=== PATIENT | female | born 1955 | race Caucasian/White ===

== ENCOUNTER 2020-05-06 09:20 | Outpatient (CLI) | payer MEDICARE, MEDICAID, SELFPAY ==
--- NOTE | ~2020-05-06 | XR_ITS ---
EXAMINATION:XR_CERV2-3V_CR DATE: 05/06/2020 09:46 INDICATION: Cervicalgia TECHNIQUE: AP, lateral, and odontoid views of the cervical spine are provided. COMPARISON: 08/02/2007 FINDINGS: Alignment is normal. The odontoid is intact. No fracture is identified. The vertebral body heights are normal. There is mild loss of intervertebral disc space height at C5-6 and C6-7. There is mild facet and uncovertebral joint osteoarthritis at C5-6 and C6-7. Prevertebral soft tissues are no rmal. Small degenerative osteophytes project from the anterior endplates of multiple vertebral bodies . IMPRESSION: 1. Mild cervical spondylosis without acute findings or significant interval change. Reviewed, dictated and finalized at location A. IMPRESSION: 1. Mild cervical spondylosis without acute findings or significant interval raudel e.
--- NOTE | ~2020-05-06 | XR_ITS ---
EXAMINATION: XR knee LT 3V DATE: 05/06/2020 09:46 INDICATION: Left knee pain. TECHNIQUE: 3 views of left knee were obtained. COMPARISON: None. FINDINGS: There is lateral subluxation and lateral tilt of patella. No fracture. There is mild tricom partmental osteoarthritis. There is a small knee joint effusion. IMPRESSION: 1. Mild left knee osteoarthritis. 2. Small left knee joint effusion. Reviewed, dictated and finalized at location A.
== END 2020-05-06 09:21 | disposition home or self-care (01) ==
LOC: ANHIMG 09:28
PROVIDERS: PCP Internal Medicine; Visit Provider Internal Medicine
DX: M47.892 Other spondylosis, cervical region (principal); M17.12 Unilateral primary osteoarthritis, left knee; M25.462 Effusion, left knee
CPT/HCPCS: 72040; 73562

== ENCOUNTER 2020-05-24 15:40 | Outpatient (CLI) | payer MEDICARE, MEDICAID, SELFPAY ==
--- NOTE | ~2020-05-24 | MR_ITS ---
EXAMINATION: MR pelvis wo/w con DATE: 05/24/2020 16:46 INDICATION: Endometrial adenocarcinoma. TECHNIQUE: Magnetic resonance imaging (MRI) of the pelvis was performed without and with 20 mL MultiH ance intravenous contrast. Sequences included coronal and axial T2-weighted SS-FSE, coronal and axial FS 2D-FIESTA, axial T1-weighted dual-echo FSPGR, and axial T1-weighted LAVA. Postcontrast axial T1-w eighted LAVA images were obtained. COMPARISON: CT abdomen and pelvis 10/07/2017 FINDINGS: There is a 3.8 cm cyst in right adnexa. The uterus is absent. There is diverticulosis of the colon wi thout evidence of diverticulitis. There are no pathologically enlarged lymph nodes. There is no free intraperitoneal fluid. IMPRESSION: 1. 3.8 cm cyst in right adnexa, likely benign. Pelvis ultrasound is recommended in one year. Reviewed, dictated and finalized at location A.
[2020-05-24 16:13] LABS: Estimated Glomerular Filt Rate > 60
== END 2020-05-24 15:41 | disposition home or self-care (01) ==
LOC: ANHIMG 15:41
PROVIDERS: PCP Internal Medicine
DX: C53.0 Malignant neoplasm of endocervix (principal); N85.8 Other specified noninflammatory disorders of uterus
CPT/HCPCS: 72197; A9577

== ENCOUNTER 2020-11-26 08:28 | Outpatient (CLI) | payer MEDICARE, MEDICAID, SELFPAY ==
--- NOTE | ~2020-11-26 | MR_ITS ---
EXAMINATION: MR lumbar spine wo con EXAM DATE: 11/26/2020 09:55 INDICATION: Low back pain. Lumbar radiculopathy. TECHNIQUE: Multi-sequential, multiplanar MR images of the lumbar spine were obtained without contrast . Sagittal T1, T2, T2 fat saturation images. Axial T2 weighted images. There is no prior study for comparison. FINDINGS: The conus medullaris terminates at the L1/2 level and has normal signal intensity and morph ology. There is moderate disc disease L2-3, mild to moderate at the other lumbar levels. The vertebr al bodies are aligned in the AP dimension. There are scattered focal signal abnormalities consistent with hemangiomata, otherwise without focal suspicious marrow signal abnormalities. Paraspinal soft ti ssue is unremarkable. Level by level evaluation: T12-L1: Disc does not extend beyond the endplate margin. Facet arthropathy: None. Neural foraminal stenosis: No stenosis. Central canal stenosis: No stenosis. L1-L2: There is a minimal diffuse disc bulge. Facet arthropathy: Mild. Neural foraminal stenosis: No stenosis. Central canal stenosis: No stenosis. L2-L3: There is a moderate diffuse disc bulge. Facet arthropathy: Mild to moderate. Neural foraminal stenosis: Mild to moderate right, mild left. Central canal stenosis: Mild to moderate. L3-L4: There is a mild diffuse disc bulge. Facet arthropathy: Mild. Neural foraminal stenosis: No stenosis. Central canal stenosis: No stenosis. L4-L5: There is a mild to moderate diffuse disc bulge. Facet arthropathy: Moderate . Ligamentum flavum enlargement. Neural foraminal stenosis: Mild to moderate bilateral. Central canal stenosis: Mild to moderate. L5-S1: There is a mild to moderate diffuse disc bulge. Facet arthropathy: Mild to moderate left, mild right. Neural foraminal stenosis: Moderate left, mild right. Central canal stenosis: Mild. IMPRESSION: 1. Up to moderate lumbar spondylosis as detailed above. 2. Left L5-S1 neural foramina most narrowed on exam. Reviewed, dictated and finalized at location B. SERGEANT
== END 2020-11-26 08:29 | disposition home or self-care (01) ==
PROVIDERS: PCP Internal Medicine; Visit Provider Nurse Practitioner Adult Health
DX: M47.27 Other spondylosis with radiculopathy, lumbosacral region (principal); M48.07 Spinal stenosis, lumbosacral region
CPT/HCPCS: 72148

== ENCOUNTER → 2021-01-03 01:34 | Outpatient (CLI) | payer MEDICARE, MEDICAID, SELFPAY ==
[2021-01-03 19:39] LABS: SARS-CoV-2 RNA PCR Negative
== END ==
PROVIDERS: PCP Internal Medicine; Visit Provider Internal Medicine Gastroenterology
DX: Z01.812 Encounter for preprocedural laboratory examination (principal); Z20.822 Contact with and (suspected) exposure to COVID-19
CPT/HCPCS: C9803; U0003; U0005

== ENCOUNTER 2021-01-06 01:07 | Day surgery (SDC) | payer MEDICARE, MEDICAID, SELFPAY ==
[2020-12-23 15:46] VITALS: BMI 29.7
[2021-01-06 11:03] VITALS: BP 135/82; PULSE 76; RESP 18; TEMP 37; O2SAT 94; BMI 29.7
[2021-01-06] MEDS: LACTATED RINGERS 1,000 ML 150 ML IV CONT (11:11)
--- NOTE | 2021-01-06 11:33 | WPDGICN ---
GI Consult Note Consult date/time: 01/06/21 11:33 HPI: Reason for visit is colonoscopy. This very pleasant lady seen in consultation request of the primary physician. Impression: Here have a very pleasant lady that is here for screening colonoscopy. She has a history of hyperplastic polyps and a family history of colon cancer. Hypertension. Hyperlipidemia. Cervical cancer. Spinal stenosis. Degenerative joint disease. Overactive bladder. Hypothyroidism. Depression. Obesity. Recommendation: Colonoscopy. History: This very pleasant lady is negative GI review systems. She is here for screening and surveillance colonoscopy. She has a history multiple hyperplastic appearing colon polyps. She has a family history of colon cancer. She is here for colonoscopy. Physical examination: General: very pleasant patient in no acute distress. HEENT: Head was normocephalic sclerae is clear mouth without masses neck was supple. Heart: Rate rhythm regular without S3 or S4. Lungs: CTA. Abdomen: Soft with no guarding or rigidity. Bowel sounds were active. Neurologic: Cranial nerves 2 through 12 intact. No focal defects. No clonus. Musculoskeletal system: Revealed no joint tenderness or swelling no muscle atrophy. Extremities: Reveal no significant edema. Skin: Warm and dry with normal turgor. Mental status: intact. Patient is alert and oriented. Review of Systems Review of Systems: All systems reviewed & are unremarkable except as noted in HPI and below PMFSH Past Medical History Medical History Overactive bladder Surgical History Surgical History History of knee surgery Family History Family History Mother Family history of cardiac disorder Carcinoma of colon Family history of heart disease in male family member before age 55 Father Family history of Alzheimer's disease Family history of congestive heart failure Patient's father is Family history of heart disease in male family member before age 55 Sibling Hypertension Social History Social History (Updated 11/13/20 @ 12:06 by ESTHER Francisco) Years smoked: 15 Smoking status: Former smoker Tobacco type: cigarettes Second hand tobacco smoke exposure: No Smoking end date: 09/20/08 Alcohol intake: never Living arrangements: with family Gender identity (if verbalized by the patient): Female Spiritual care concerns: No Meds Home Medications and Allergies Home Medications Medication Instructions Recorded Confirmed Type biotin 10,000 mcg capsule 10,000 mcg PO DAILY 10/30/19 12/23/20 History calcium carbonate-vitamin D3 600 1 tablet PO DAILY 10/30/19 12/23/20 History mg (1,500 mg)-800 unit tablet multivitamin with iron 1 tablet PO DAILY 10/30/19 12/23/20 History vitamins A,C,P-ewhd-lmjoko 14,320 1 cap PO BID 10/30/19 12/23/20 History unit-226 mg-200 unit capsule folic acid 1 mg tablet 1 mg PO DAILY #90 tablet 01/25/20 12/23/20 Rx paroxetine HCl 40 mg tablet 40 mg PO DAILY #90 tablet 08/19/20 12/23/20 Rx carvedilol 12.5 mg tablet See Rx Instructions .ROUTE 10/17/20 11/13/20 Rx .COMPLEX #180 tablet losartan 100 mg tablet See Rx Instructions .ROUTE 10/17/20 11/13/20 Rx .COMPLEX #90 tablet mirabegron 25 mg tablet,extended 25 mg PO DAILY #90 tablet 10/22/20 12/23/20 Rx release 24 hr levothyroxine 112 mcg tablet See Rx Instructions .ROUTE 11/18/20 12/23/20 Rx .COMPLEX #90 tablet trazodone 50 mg tablet See Rx Instructions .ROUTE 11/19/20 12/23/20 Rx .COMPLEX #90 tablet atorvastatin 80 mg tablet See Rx Instructions .ROUTE 12/03/20 12/23/20 Rx .COMPLEX #90 tablet amlodipine 5 mg tablet See Rx Instructions .ROUTE 12/30/20 Rx .COMPLEX #90 tablet Allergies Allergy/AdvReac Type Severity [place]
--- NOTE | 2021-01-06 11:43 | WPDANESEPPF ---
Anes - Initial Pre Proc Eval Procedure: Operation Date: 01/06/21 11:30 Proposed Procedures p Screening Colonoscopy - Rodríguez Carrasquillo DO Date/Time: 01/06/21 11:43 Surgeon: Rodríguez Carrasquillo DO Pre Op Diagnosis: Neoplasm Screening Patient Data Age: 65 Gender: F Height: 5 ft 7 in Weight: 86.2 kg Last Vital Signs Temp 98.6 F 01/06/21 11:03 Pulse 76 01/06/21 11:03 Resp 18 01/06/21 11:03 BP 135/82 01/06/21 11:03 Pulse Ox 94 01/06/21 11:03 Allergies Allergy/AdvReac Type Severity Reaction Status Date / Time mushroom Allergy Unknown Rash Verified 01/06/21 11:02 strawberry Allergy Unknown Hives Verified 01/06/21 11:02 Home Medications Medication Instructions Recorded Confirmed Type biotin 10,000 mcg capsule 10,000 mcg PO DAILY 10/30/19 12/23/20 History calcium carbonate-vitamin D3 600 1 tablet PO DAILY 10/30/19 12/23/20 History mg (1,500 mg)-800 unit tablet multivitamin with iron 1 tablet PO DAILY 10/30/19 12/23/20 History vitamins A,C,Q-owez-msopol 14,320 1 cap PO BID 10/30/19 12/23/20 History unit-226 mg-200 unit capsule folic acid 1 mg tablet 1 mg PO DAILY #90 tablet 01/25/20 12/23/20 Rx paroxetine HCl 40 mg tablet 40 mg PO DAILY #90 tablet 08/19/20 12/23/20 Rx carvedilol 12.5 mg tablet See Rx Instructions .ROUTE 10/17/20 11/13/20 Rx .COMPLEX #180 tablet losartan 100 mg tablet See Rx Instructions .ROUTE 10/17/20 11/13/20 Rx .COMPLEX #90 tablet mirabegron 25 mg tablet,extended 25 mg PO DAILY #90 tablet 10/22/20 12/23/20 Rx release 24 hr levothyroxine 112 mcg tablet See Rx Instructions .ROUTE 11/18/20 12/23/20 Rx .COMPLEX #90 tablet trazodone 50 mg tablet See Rx Instructions .ROUTE 11/19/20 12/23/20 Rx .COMPLEX #90 tablet atorvastatin 80 mg tablet See Rx Instructions .ROUTE 12/03/20 12/23/20 Rx .COMPLEX #90 tablet amlodipine 5 mg tablet See Rx Instructions .ROUTE 12/30/20 Rx .COMPLEX #90 tablet Patient hx anesthesia problems: none Family hx anesthesia problems: none PMFSH Past Medical History Medical History (Updated 01/06/21 @ 11:34 by Valdemar Hutchins MD) Anxiety Essential (primary) hypertension Gastroesophageal reflux disease without esophagitis Hypothyroidism, unspecified Mixed hyperlipidemia Overactive bladder Surgical History Surgical History History of knee surgery Family History Family History Mother Family history of cardiac disorder Carcinoma of colon Family history of heart disease in male family member before age 55 Father Family history of Alzheimer's disease Family history of congestive heart failure Patient's father is Family history of heart disease in male family member before age 55 Sibling Hypertension Social History Social History (Updated 11/13/20 @ 12:06 by ESTHER Francisco) Years smoked: 15 Smoking status: Former smoker Tobacco type: cigarettes Second hand tobacco smoke exposure: No Smoking end date: 09/20/08 Alcohol intake: never Living arrangements: with family Gender identity (if verbalized by the patient): Female Spiritual care concerns: No Anes - Eval Final PreProcedure Day of Procedure 01/06/21 11:43 Patient weight: obese Heart: regular rate and rhythm Lungs: clear to auscultation Airway: Mallampati scale class II Neurological: alert and oriented Last oral intake: >/= 8 hours ASA classification: III Emergent: no Anesthetic plan: proceed Anesthesia type and monitoring: general GIVS and standard monitoring Informed Consent: The patient's anesthetic plan and its attendant risks and benefits were discussed with the patient/family/POA. Questions were solicited and answers provided to the satisfaction of the patient/family/POA.
[2021-01-06 12:48] VITALS: BP 80/46; PULSE 59; RESP 14; O2SAT 100
[2021-01-06 12:58] VITALS: BP 92/58; PULSE 59; RESP 15; O2SAT 100
[2021-01-06 13:08] VITALS: BP 114/72; PULSE 59; RESP 17; O2SAT 100
== END 2021-01-06 13:21 | disposition home or self-care (01) ==
PROVIDERS: PCP Internal Medicine; Visit Provider Internal Medicine Gastroenterology
PROC: 0DJD8ZZ Inspection of Lower Intestinal Tract, Via Natural or Artificial Opening Endoscopic (ICD-10-PCS; CPT 45378; principal; 2021-01-06 11:30)
DX: Z12.11 Encounter for screening for malignant neoplasm of colon (principal); K57.30 Diverticulosis of large intestine without perforation or abscess without bleeding; K62.5 Hemorrhage of anus and rectum; I10 Essential (primary) hypertension; E03.9 Hypothyroidism, unspecified; M19.90 Unspecified osteoarthritis, unspecified site; F41.8 Other specified anxiety disorders; K21.9 Gastro-esophageal reflux disease without esophagitis; E78.2 Mixed hyperlipidemia; N32.81 Overactive bladder; E66.9 Obesity, unspecified; Z68.29 Body mass index [BMI] 29.0-29.9, adult; Z87.891 Personal history of nicotine dependence; Z85.41 Personal history of malignant neoplasm of cervix uteri
CPT/HCPCS: 45380; 88305; J2704; J7120

== ENCOUNTER 2021-05-25 12:15 | Outpatient (CLI) | payer MEDICARE, MEDICAID, SELFPAY ==
--- NOTE | ~2021-05-25 | XR_ITS ---
EXAMINATION: XR femur RT min 2V DATE: 05/25/2021 12:34 INDICATION: Right thigh pain. Fall. TECHNIQUE: 2 views of right femur on 4 radiographs were obtained. COMPARISON: Pelvis and hip radiographs 04/05/2017, right knee radiographs 11/01/2007 FINDINGS: There is an old healed fracture of distal femoral metaphysis with internal fixation with la teral plate and screws. There is a total right knee arthroplasty. There is 3 mm lucency adjacent to t he arthroplasty in the anterior distal femur. There is mild right hip osteoarthritis. No knee joint e ffusion. IMPRESSION: 1. Mild right hip osteoarthritis. 2. Total right knee arthroplasty with lucency adjacent to the femoral component suspicious for loosen ing. Reviewed, dictated and finalized at location A. IMPRESSION: 1. Mild right hip osteoarthritis. 2. Total right knee arthroplasty with lucency adjacent to the femoral component suspicious for loosening.
== END 2021-05-25 12:16 | disposition home or self-care (01) ==
LOC: ANHIMG 12:20
PROVIDERS: PCP Internal Medicine; Visit Provider Internal Medicine
DX: M89.8X5 Other specified disorders of bone, thigh (principal); M79.652 Pain in left thigh; M16.11 Unilateral primary osteoarthritis, right hip; Z96.651 Presence of right artificial knee joint
CPT/HCPCS: 73552

== ENCOUNTER → 2022-01-20 14:09 | Outpatient (REF) | payer MEDICARE, MEDICAID, SELFPAY | LOC: ANHLAB 14:09 | PROVIDERS: PCP Internal Medicine; Visit Provider Nurse Practitioner | DX: C44.311 Basal cell carcinoma of skin of nose (principal) | CPT/HCPCS: 88305 ==

== ENCOUNTER → 2022-02-03 13:37 | Outpatient (REF) | payer MEDICARE, MEDICAID, SELFPAY | LOC: ANHLAB 13:37 | PROVIDERS: PCP Internal Medicine; Visit Provider Nurse Practitioner | DX: D23.39 Other benign neoplasm of skin of other parts of face (principal) | CPT/HCPCS: 88304 ==

== ENCOUNTER → 2022-03-16 10:27 | Outpatient (REF) | payer MEDICARE, MEDICAID, SELFPAY | LOC: ANHLAB 10:27 | PROVIDERS: PCP Internal Medicine; Visit Provider Nurse Practitioner | DX: C44.319 Basal cell carcinoma of skin of other parts of face (principal) | CPT/HCPCS: 88305; 88331 ==

== ENCOUNTER 2023-08-31 08:35 | Day surgery (SDC) | payer MEDICARE, MEDICAID, SELFPAY ==
--- NOTE | ~2023-08-31 | XR_ITS ---
EXAMINATION: XR fluoroscopy no charge INDICATION: Bilateral L3, L4, and L5 medial block TECHNIQUE: 11 intraoperative fluoroscopic images are submitted for review. Total fluoroscopic time wa s 29.4 seconds. COMPARISON: None available FINDINGS: Fluoroscopic images demonstrate bilateral injection of the L3, L4, and L5 neuroforamina. Pl ease refer to procedure note for full details. IMPRESSION: 1. Please refer to procedure note for full details. Reviewed, dictated and finalized at location L. OR ANIMATOR
--- NOTE | 2023-08-31 05:48 | WPDHPUPDATE1 ---
History and Physical Update Update Date/Time: 08/31/23 05:48 History and Physical has been reviewed, including an updated exam of the patient. There are NO changes in the patient's condition. Risks, benefits, and alternatives have been discussed and questions answered. Patient agrees to proceed with procedure.
[2023-08-31 09:40] VITALS: BP 118/79; PULSE 88; RESP 20; TEMP 36.5; O2SAT 96
[2023-08-31 11:05] VITALS: BP 113/86; PULSE 67; RESP 10; O2SAT 95
[2023-08-31 11:10] VITALS: BP 176/79; PULSE 68; RESP 15; O2SAT 95
[2023-08-31] MEDS: LIDOCAINE HCL 1% PF INJ 5 ML VIAL XX (11:10)
[2023-08-31 11:15] VITALS: BP 173/82; PULSE 70; RESP 15; O2SAT 96
[2023-08-31] MEDS: BUPivacaine HCL 0.5% 10 ML AMP INFILTRATE (11:20)
--- NOTE | 2023-08-31 11:21 | W.PM.PROC2 ---
Procedure Note - Detailed Date of Procedure 08/31/23 Pre-op Diagnosis Lumbosacral Spondylosis , chronic low back pain Post-op Diagnosis Same Procedure Performed bilateral L3, L4, L5 medial branch/dorsal ramus nerve block addressing the bilateral L4-5, L5-S1 facet joints and fluoroscopic guidance with contrast control. Surgeon Leno Macdonald MD Anesthesia Local Description of Procedure INFORMED CONSENT: Risks, benefits and alternatives to the procedure were discussed in detail with the patient who expressed explicit understanding and consent to proceed. Patient was informed verbally and in written form regarding the risks associated with the procedure including the low risk of serious infection, bleeding/bruising, allergic reaction, nerve or organ injury, paralysis, procedural site pain or discomfort, worsening pain and/or mobility, failure to treat and/or disfigurement. The patient expressed explicit understanding and consent to proceed. All materials required for the procedure were available prior to procedure start. Site and side were marked prior to procedure and confirmed in the presence of the patient. PROCEDURE IN DETAIL: The patient was brought to the procedural suite and placed in the prone position. Patient was made comfortable with use of pillows under the head/chest, hips and ankles. Skin overlying the injection site on the affected side(s) was prepared broadly with ChloraPrep applicator and draped in a sterile manner. Aseptic technique was used throughout. The endplates of the vertebral bodies at the site(s) of interest were aligned in the AP view. Ipsilateral oblique angulation was utilized to optimize visualization of the intersection between the superior articulating process and transverse process at each target site. Local anesthesia was established by infiltration with approximately 5 mL of 1% lidocaine via a 1-1/2 inch 27-gauge needle. A 25-gauge 5.0 inch Quincke spinal needle was advanced until the needle tip contacted periosteum at the target site, right L3. Lateral view was utilized to confirm the appropriate placement of the needle tip just anterior to the facet line and superior to the pedicle. In the Lateral view, 0.25 mL of Omnipaque 300 contrast medium was injected after negative aspiration for CSF, blood or other bodily fluid, showing appropriate extra-articular spread of contrast without evidence of intravascular, foraminal or intrathecal placement. A 0.5 mL solution of 0.5% PF bupivacaine was injected after negative repeat aspiration. Appropriate spread of the injectate was confirmed with washout of previously injected contrast. No parasthesias were elicited. Needle was removed completely intact without difficulty. The same exact procedure was repeated for all remaining levels on the ipsilateral side, right L4, L5 medial branches/dorsal ramus, modified as necessary to accommodate for the new target location with identical findings and results and no evidence of complication. The same exact procedure was repeated for all remaining levels on the contralateral side, left L3, L4, L5 medial branches/dorsal ramus, modified as necessary to accommodate for the new target location with identical findings and results and no evidence of complication. Images were saved and documented in the patient chart. Patient's skin was cleaned and sterile bandage applied. The patient tolerated the procedure well. The patient was transported to the recovery area in stable condition where they were observed for an appropriate amount of time prior to discharge, without evidence of complication. Patient was instructed on the appropriate completion of a pain diary over the next 12-24 hours. The patient was instructed to avoid excessive activity for the next 48 hours, including climbing and frequent use of stairs. Showers only for 48 hours. They were instructed not to drive or operate heavy machinery for 24 hours. They are to monitor for severe headaches, fev
[2023-08-31 11:30] VITALS: BP 112/94; PULSE 72; RESP 15; O2SAT 97
== END 2023-08-31 11:40 | disposition home or self-care (01) ==
LOC: ASC 09:23
PROVIDERS: PCP Nurse Practitioner Family; Visit Provider Anesthesiology Pain Medicine
PROC: (CPT 64493; principal; 2023-08-31 10:30)
DX: M47.817 Spondylosis without myelopathy or radiculopathy, lumbosacral region (principal); M54.59 Other low back pain
CPT/HCPCS: 64493 ×2; 99199

== ENCOUNTER 2023-10-26 05:53 | Day surgery (SDC) | payer MEDICARE, MEDICAID, SELFPAY ==
[2023-10-06 11:06] VITALS: BMI 35.6
--- NOTE | ~2023-10-26 | XR_ITS ---
EXAMINATION: XR fluoroscopy no charge DATE: 10/26/2023 10:55 INDICATION: Bilateral L3-L5 nerve blocks. TECHNIQUE: 7 fluoroscopic images of the lumbar spine were obtained during procedure performed by Dr. Macdonald. Radiologist was not present for the imaging or procedure. The amount of fluoroscopy time used d uring this procedure was 0.3 minutes. COMPARISON: None. FINDINGS: Images demonstrate needles advanced to the region of the junction of the superior facet and transvers e processes of L4-S1 on both the left and right. IMPRESSION: 1. Fluoroscopy utilized during pain management procedure the lower lumbar spine. See procedure note f or further detail. Reviewed, dictated and finalized at location A. MACHINE REPAIRER IMPRESSION: 1. Fluoroscopy utilized during pain management procedure the lower lumbar spine . See procedure note for further detail.
--- NOTE | 2023-10-26 07:20 | PM.HPGS ---
History of Present Illness History of Present Illness Consent: Risks, benefits, and alternatives have been discussed and questions answered. Patient agrees to proceed with procedure. Chief complaint: Lumbar Spondylosis w/o Myelopathy or Radiculopathy Narrative: Rosetta Cardenas is a 68 year old femalewith chronic, recalcitrant and disabling bilateral lumbosacral back pain secondary to degenerative spondylosis with failure to respond to aggressive conservative measures including PT, oral and topical analgesics, opioid and nonopioid analgesics, rest, time and activity/behavioral modification over the past 1-2 years who presents for diagnostic/prognostic medial branch blocks (#2) under fluoroscopic guidance and with contrast control. Patient had excellent and concordant response to bupivacaine blockade in the recent past. Review of Systems Review of Systems: Patient denies any new infectious, allergic, cardiopulmonary, neurologic or constitutional symptoms or changes in activity tolerance or exercise capacity including new or progressive SOB/PARKINSON, peripheral edema, productive cough, dysuria, nausea/vomiting, diarrhea, weight change, fevers/chills/night sweats, new or progressive neurologic deficit, cognitive or mood changes since last seen, except as documented in the HPI. All systems reviewed & are unremarkable except as noted in HPI and below PMFSH Past Medical History Medical History Anxiety Bladder disorder Stimulator placed 05/2023 Essential (primary) hypertension Gastroesophageal reflux disease without esophagitis Hypothyroidism, unspecified Mixed hyperlipidemia Overactive bladder Surgical History Surgical History History of knee surgery Family History Family History Mother Family history of cardiac disorder Carcinoma of colon Family history of heart disease in male family member before age 55 Father Family history of Alzheimer's disease Family history of congestive heart failure Patient's father is Family history of heart disease in male family member before age 55 Sibling Hypertension Social History Social History Smoking packs per day: 1 Smoking cigarettes per day: 20.0 Years smoked: 15 Smoking pack-years: 15.00 Smoking status: Never smoker Tobacco type: cigarettes Second hand tobacco smoke exposure: Yes Smoking end date: 09/20/08 Alcohol intake: never Substance use: never Substance use type: does not use Lack of Transportation: No Lack of Food: Never True Current Housing: I Have Housing Concerned About Future Housing: No Difficulty Paying Gas/Electric Bills: No Difficulty Paying for Meds: No Currently Unemployed: No Education: High School Diploma/GED Difficulty w/ Childcare or Family Care: No Living arrangements: alone Gender identity (if verbalized by the patient): Female Spiritual care concerns: No Meds Home Medications and Allergies Home Medications Medication Instructions Recorded Confirmed Type calcium carbonate 600 mg-vitamin 1 tablet PO DAILY 10/30/19 08/31/23 History D3 20 mcg (800 unit) tablet (Caltrate with Vitamin D3) multivitamin with iron (Daily 1 tablet PO DAILY 10/30/19 08/31/23 History Vitamin with Iron tablet) vitamins A,C,K-xcnj-pszssn 4,296 1 cap PO BID 10/30/19 08/31/23 History mcg-226 mg-90 mg capsule (PreserVision AREDS) folic acid 1 mg tablet 1 mg PO DAILY #90 tabs 01/25/20 08/31/23 Rx paroxetine HCl 10 mg tablet 10 mg PO DAILY #90 tabs 12/18/22 08/31/23 Rx paroxetine HCl 40 mg tablet 40 mg PO DAILY #90 tabs 12/18/22 08/31/23 Rx atorvastatin 80 mg tablet See Rx Instructions .Route 06/09/23 08/31/23 Rx .COMPLEX #90 tabs carvedilol 12.5 mg tablet See Rx Instructions .Rout
--- NOTE | 2023-10-26 07:24 | WPDHPUPDATE1 ---
History and Physical Update Update Date/Time: 10/26/23 07:24 History and Physical has been reviewed, including an updated exam of the patient. There are NO changes in the patient's condition. Risks, benefits, and alternatives have been discussed and questions answered. Patient agrees to proceed with procedure.
--- NOTE | 2023-10-26 07:24 | W.PM.PROC2 ---
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 Surgeon Leno Macdonald MD Anesthesia Local Description of Procedure INFORMED CONSENT: Risks, benefits and alternatives to the procedure were discussed in detail with the patient who expressed explicit understanding and consent to proceed. Patient was informed verbally and in written form regarding the risks associated with the procedure including the low risk of serious infection, bleeding/bruising, allergic reaction, nerve or organ injury, paralysis, procedural site pain or discomfort, worsening pain and/or mobility, failure to treat and/or disfigurement. The patient expressed explicit understanding and consent to proceed. All materials required for the procedure were available prior to procedure start. Site and side were marked prior to procedure and confirmed in the presence of the patient. PROCEDURE IN DETAIL: The patient was brought to the procedural suite and placed in the prone position. Patient was made comfortable with use of pillows under the head/chest, hips and ankles. Skin overlying the injection site on the affected side(s) was prepared broadly with ChloraPrep applicator and draped in a sterile manner. Aseptic technique was used throughout. The endplates of the vertebral bodies at the site(s) of interest were aligned in the AP view. Ipsilateral oblique angulation was utilized to optimize visualization of the intersection between the superior articulating process and transverse process at each target site. Local anesthesia was established by infiltration with approximately 5 mL of 1% lidocaine via a 1-1/2 inch 27-gauge needle. A 25-gauge 5.0 inch Quincke spinal needle was advanced until the needle tip contacted periosteum at the target site, right L3. Lateral view was utilized to confirm the appropriate placement of the needle tip just anterior to the facet line and superior to the pedicle. In the Lateral view, 0.25 mL of Omnipaque 300 contrast medium was injected after negative aspiration for CSF, blood or other bodily fluid, showing appropriate extra-articular spread of contrast without evidence of intravascular, foraminal or intrathecal placement. A 0.5 mL solution of 2.0% preservative-free lidocaine was injected after negative repeat aspiration. Appropriate spread of the injectate was confirmed with washout of previously injected contrast. No parasthesias were elicited. Needle was removed completely intact without difficulty. The same exact procedure was repeated for all remaining levels on the ipsilateral side, right L4, L5 medial branches/dorsal ramus, modified as necessary to accommodate for the new target location with identical findings and results and no evidence of complication. The same exact procedure was repeated for all remaining levels on the contralateral side, left L3, L4, L5 medial branches/dorsal ramus, modified as necessary to accommodate for the new target location with identical findings and results and no evidence of complication. Images were saved and documented in the patient chart. Patient's skin was cleaned and sterile bandage applied. The patient tolerated the procedure well. The patient was transported to the recovery area in stable condition where they were observed for an appropriate amount of time prior to discharge, without evidence of complication. Patient was instructed on the appropriate completion of a pain diary over the next 12-24 hours. The patient was instructed to avoid excessive activity for the next 48 hours, including climbing and frequent use of stairs. Showers only for 48 hours. They were instructed not to drive or operate heavy machinery for 24 hours. They are to monito
[2023-10-26 07:40] VITALS: BP 110/83; PULSE 70; RESP 16; TEMP 36.7; O2SAT 98
[2023-10-26 08:18] VITALS: BP 173/83; PULSE 66; RESP 15; O2SAT 95
[2023-10-26 08:22] VITALS: BP 162/74; PULSE 61; RESP 13; O2SAT 93
[2023-10-26] MEDS: LIDOCAINE HCL 2% PF INJ 5 ML VIAL 3 ML INFILTRATE (08:25)
[2023-10-26] MEDS: LIDOCAINE HCL 1% PF INJ 5 ML VIAL AFFCTD EYE (08:25)
[2023-10-26 08:27] VITALS: BP 145/68; PULSE 64; RESP 13; O2SAT 95
[2023-10-26 08:32] VITALS: BP 138/71; PULSE 63; O2SAT 95
[2023-10-26 08:36] VITALS: BP 112/75; PULSE 71; RESP 16; O2SAT 97
== END 2023-10-26 09:00 | disposition home or self-care (01) ==
PROVIDERS: PCP Nurse Practitioner Family; Visit Provider Anesthesiology Pain Medicine
PROC: (CPT 64493; principal; 2023-10-26 08:15)
DX: M47.816 Spondylosis without myelopathy or radiculopathy, lumbar region (principal)
CPT/HCPCS: 64493 ×2; 99199

== ENCOUNTER 2023-12-07 06:14 | Day surgery (SDC) | payer MEDICARE, MEDICAID, SELFPAY ==
[2023-11-25 12:37] VITALS: BMI 36.6
--- NOTE | 2023-11-26 09:06 | SUR.PREOP ---
SPOKE WITH DR THOMAS, EKG WAIVED FOR COLONOSCOPY. PT NOTIFIED.
--- NOTE | ~2023-12-07 | XR_ITS ---
EXAMINATION: XR fluoroscopy no charge DATE: 12/07/2023 8:25 CDT INDICATION: OLIVIA L3,L4,L5 MEDIAL BRANCH THERMAL RADIOFREQUENCY ABLATION . TECHNIQUE: 6 fluoroscopic images and 3 cine clips of 4, 5, and 4 images of the lumbar spine were obta ined during bilateral L3-L5 medial branch thermal radiofrequency ablation, performed by Leno Herman om, MD. I was not present during the procedure. Fluoroscopy exposure time was 25.9 seconds. Air Kerma 20.8 mGy. COMPARISON: None FINDINGS/IMPRESSION: Fluoroscopic documentation of bilateral L3-L5 medial branch thermal radiofrequency ablation. Please r efer to the operative note for complete procedural details. Reviewed, dictated and finalized at location K.
[2023-12-07 06:46] VITALS: BP 120/80; PULSE 88; RESP 16; TEMP 37.3; O2SAT 98; BMI 37.3
--- NOTE | 2023-12-07 06:57 | WPDANESEPPF ---
Anes - Initial Pre Proc Eval Procedure: Operation Date: 12/07/23 08:00 Proposed Procedures p Bilateral L3, L4, L5 Medial Branch/Dorsal Ramus Thermal Radiofrequency Ablation under Fluoroscopic Guidance - Leno Macdonald MD Date/Time: 12/07/23 06:57 Surgeon: Leno Macdonald MD Pre Op Diagnosis: Lumbosacral Spondylosis w/o Myelopathy or Patient Data Age: 68 Gender: F Height: 1.68 m Weight: 104.75 kg Last Vital Signs Temp 37.3 C 12/07/23 06:46 Pulse 88 12/07/23 06:46 Resp 16 12/07/23 06:46 BP 120/80 12/07/23 06:46 Pulse Ox 98 12/07/23 06:46 O2 Del Method Room Air 12/07/23 06:46 Allergies Allergy/AdvReac Type Severity Reaction Status Date / Time mushroom Allergy Unknown Rash Verified 12/07/23 06:38 strawberry Allergy Unknown Hives Verified 12/07/23 06:38 Home Medications Medication Instructions Recorded Confirmed Type calcium carbonate 600 mg-vitamin 1 tablet PO DAILY 10/30/19 12/07/23 History D3 20 mcg (800 unit) tablet (Caltrate with Vitamin D3) multivitamin with iron (Daily 1 tablet PO DAILY 10/30/19 11/25/23 History Vitamin with Iron tablet) vitamins A,C,H-[id number]-gbkrcg 4,296 1 cap PO BID 10/30/19 11/25/23 History mcg-226 mg-90 mg capsule (PreserVision AREDS) folic acid 1 mg tablet 1 mg PO DAILY #90 tabs 01/25/20 11/25/23 Rx paroxetine HCl 10 mg tablet 10 mg PO DAILY #90 tabs 12/18/22 11/25/23 Rx paroxetine HCl 40 mg tablet 40 mg PO DAILY #90 tabs 12/18/22 11/25/23 Rx atorvastatin 80 mg tablet See Rx Instructions .Route 06/09/23 12/07/23 Rx .COMPLEX #90 tabs carvedilol 12.5 mg tablet See Rx Instructions .Route 06/09/23 12/07/23 Rx .COMPLEX #180 tabs levothyroxine 112 mcg tablet See Rx Instructions .Route 07/15/23 12/07/23 Rx .COMPLEX #90 tabs trazodone 50 mg tablet See Rx Instructions .Route 07/28/23 11/25/23 Rx .COMPLEX #90 tabs losartan 100 mg tablet See Rx Instructions .Route 09/06/23 11/25/23 Rx .COMPLEX #90 tabs amlodipine 5 mg tablet See Rx Instructions .Route 10/21/23 12/07/23 Rx .COMPLEX #90 tabs Patient hx anesthesia problems: none Family hx anesthesia problems: none Results Review: All pre-operative results and documents have been reviewed as part of the pre-operative evaluation. [facility] Past Medical History Medical History Anxiety Bladder disorder Stimulator placed 05/2023 Essential (primary) hypertension Gastroesophageal reflux disease without esophagitis Hypothyroidism, unspecified Mixed hyperlipidemia Overactive bladder Surgical History Surgical History History of knee surgery Family History Family History Mother Family history of cardiac disorder Carcinoma of colon Family history of heart disease in male family member before age 55 Father Family history of Alzheimer's disease Family history of congestive heart failure Patient's father is Family history of heart disease in male family member before age 55 Sibling Hypertension Social History Social History Smoking packs per day: 1 Smoking cigarettes per day: 20.0 Years smoked: 15 Smoking pack-years: 15.00 Smoking status: Former smoker Tobacco type: cigarettes Second hand tobacco smoke exposure: No Smoking end date: 09/20/08 Alcohol intake: never Substance use: never Substance use type: does not use Lack of Transportation: No Lack of Food: Never True Current Housing: I Have Housing Concerned About Future Housing: No Difficulty Paying Gas/Electric Bills: No Difficulty Paying for Meds: No Currently Unemployed: No Education: High School Diploma/GED Difficulty w/ Childcare or Family Care: No Living arrangements: alone Gender identity (if verbalized by the patient): Female Tory
[2023-12-07] MEDS: LACTATED RINGERS 1,000 ML 30 ML IV CONT (07:00)
--- NOTE | 2023-12-07 08:16 | WPDHPUPDATE1 ---
History and Physical Update Update Date/Time: 12/07/23 08:16 History and Physical has been reviewed, including an updated exam of the patient. There are NO changes in the patient's condition. Risks, benefits, and alternatives have been discussed and questions answered. Patient agrees to proceed with procedure.
[2023-12-07] MEDS: BUPivacaine HCL 0.5% 10 ML AMP INFILTRATE (08:55)
[2023-12-07] MEDS: LIDOCAINE HCL 2% PF INJ 5 ML VIAL 10 ML INFILTRATE (08:57)
[2023-12-07] MEDS: LIDOCAINE HCL 1% PF INJ 5 ML VIAL 3 ML XX (08:59)
--- NOTE | 2023-12-07 09:00 | W.PM.PROC2 ---
Procedure Note - Detailed Date of Procedure 12/07/23 Pre-op Diagnosis Lumbosacral Spondylosis w/o Myelopathy, Dorssalgia Post-op Diagnosis Same Procedure Performed Bilateral L3, L4, L5 medial branch/ dorsal ramus thermal radiofrequency ablation under fluoroscopic guidance. Surgeon Leno Macdonald MD Anesthesia MAC and Local Description of Procedure INFORMED CONSENT: Risks, benefits and alternatives to the procedure were discussed in detail with the patient who expressed explicit understanding and consent to proceed. Patient was informed verbally and in written form regarding the risks associated with the procedure including the low risk of serious infection, bleeding/bruising, allergic reaction, nerve or organ injury, paralysis, procedural site pain or discomfort, worsening pain and/or mobility, failure to treat and/or disfigurement. The patient expressed explicit understanding and consent to proceed. All materials required for the procedure were available prior to procedure start. Site and side were marked prior to procedure and confirmed in the presence of the patient. PROCEDURE IN DETAIL: The patient was brought to the procedural suite and placed in the prone position. Patient was made comfortable with use of pillows under the head/chest, hips and ankles. Skin overlying the injection site on the affected side(s) was prepared broadly with ChloraPrep applicator and draped in a sterile manner. Aseptic technique was used throughout. The endplates of the vertebral bodies at the site(s) of interest were aligned in the AP view. Ipsilateral oblique angulation was utilized to optimize visualization of the intersection between the superior articulating process and transverse process at each target site. Local anesthesia was established by infiltration with approximately 5 mL of 1% lidocaine via a 1-1/2 inch 27-gauge needle. An 16-gauge 150mm Fanattacian RF needle with curved 10mm active tip was advanced in the AP view until the needle tip contacted the periosteum at the target site, right L3 medial branch. Lateral view was utilized to adjust and confirm the appropriate placement of the needle tip just anterior to the facet line, superior to the pedicle and posterior to the foramen. The appropriately-sized RF cannula was inserted into the RF needle and motor stimulation performed with no subjective or objective evidence of recruited muscle activity with stimulation up to 3.0 volts at a frequency of 2Hz. 1.0 mL of 2.0% PF lidocaine was injected after negative aspiration. Grounding electrode in place and functioning. After a 90s pause, lesioning was performed to 90 degrees centigrade for 90s ensuring lack of symptoms in the extremity throughout. Needle was rotated 180 degrees and lesioning repeated in a similar manner. Patient tolerated this well. No parasthesias were elicited. Needle was removed completely intact without difficulty. The same procedure was repeated for all intended levels/ structures on the ipsilateral side, right L4, L5 medial branch/dorsal ramus with identical methodology, modified to compensate for new location, with similar results and no evidence of complication. The same exact procedure was repeated for all remaining levels on the contralateral side, left L3, L4, L5 medial branches/dorsal ramus, modified as necessary to accommodate for the new target location with identical findings/results and no evidence of complication. Images were saved and documented in the patient chart. Patient's skin was cleansed and sterile bandage applied. The patient tolerated the procedure well. The patient was transported to the recovery area in stable condition where they were observed for an appropriate amount of time prior to discharge, without evidence of complication. The patient was instructed to avoid excessive activity for the next 48 hours, including climbing and frequent use of stairs. Showers only for 48 hours. They were instructed not to drive or operat
[2023-12-07 09:04] VITALS: BP 102/55; PULSE 72; RESP 18; O2SAT 96
[2023-12-07 09:14] VITALS: BP 117/98; PULSE 75; RESP 18; O2SAT 95
--- NOTE | 2023-12-07 09:16 | WPDANESPN ---
Anes - Prog Note Post-Op Date/Time: 12/07/23 09:16 Vital Signs: Last Vital Signs Temp 37.3 C 12/07/23 06:46 Pulse 72 12/07/23 09:04 Resp 18 12/07/23 09:04 BP 102/55 L 12/07/23 09:04 Pulse Ox 96 12/07/23 09:04 O2 Del Method Room Air 12/07/23 09:04 Pain Score (VAS): 0 Patient Feedback: Patient satisfied with anesthetic care.
[2023-12-07 09:24] VITALS: BP 126/79; PULSE 71; RESP 16; O2SAT 95
== END 2023-12-07 09:40 | disposition home or self-care (01) ==
PROVIDERS: PCP Nurse Practitioner Family; Visit Provider Anesthesiology Pain Medicine
PROC: (CPT 64635; principal; 2023-12-07 08:00)
DX: M47.817 Spondylosis without myelopathy or radiculopathy, lumbosacral region (principal); M54.89 Other dorsalgia
CPT/HCPCS: 64635 ×2; 99199

== ENCOUNTER 2024-01-18 06:15 | Day surgery (SDC) | payer MEDICARE, MEDICAID, SELFPAY ==
[2024-01-13 10:50] VITALS: BMI 36.3
--- NOTE | ~2024-01-18 | XR_ITS ---
XR fluoroscopy no charge Indication: Bilateral L1, L2 and L3 medial branch nerve block TECHNIQUE: Fluoroscopy used during Bilateral L1, L2 and L3 medial branch nerve block performed by Dr Bone [Leno Macdonald MD] on 01/18/2024. 21 seconds of fluoroscopy time with 11 fluoroscopic images capt ured. FINDINGS: Correlate with procedure note. IMPRESSION: Fluoroscopy used during Bilateral L1, L2 and L3 medial branch nerve block. Please refer t o procedural report. Reviewed, dictated and finalized at location B. IMPRESSION: Fluoroscopy used during Bilateral L1, L2 and L3 medial branch nerve block. Please refer to procedural report.
[2024-01-18 07:59] VITALS: BP 103/71; PULSE 84; RESP 14; TEMP 36.1; O2SAT 98
--- NOTE | 2024-01-18 08:28 | WPDHPUPDATE1 ---
History and Physical Update Update Date/Time: 01/18/24 08:28 History and Physical has been reviewed, including an updated exam of the patient. There are NO changes in the patient's condition. Risks, benefits, and alternatives have been discussed and questions answered. Patient agrees to proceed with procedure.
--- NOTE | 2024-01-18 08:29 | W.PM.PROC2 ---
Procedure Note - Detailed Date of Procedure 01/18/24 Pre-op Diagnosis Lumbar Spondylosis wo Myelopathy or Radiculopathy Post-op Diagnosis Same Procedure Performed Diagnostic bilateral Lumbar Medial Branch Blocks at L1, L2, L3 Treating the Ipsilateral L2-3, L3-4 Facet Joints Under Fluoroscopic Guidance and with Contrast Control. ( 4 levels blocked). Surgeon Leno Macdonald MD Anesthesia Local Description of Procedure INFORMED CONSENT: Risks, benefits and alternatives to the procedure were discussed in detail with the patient who expressed explicit understanding and consent to proceed. Patient was informed verbally and in written form regarding the risks associated with the procedure including the low risk of serious infection, bleeding/bruising, allergic reaction, nerve or organ injury, paralysis, procedural site pain or discomfort, worsening pain and/or mobility, failure to treat and/or disfigurement. The patient expressed explicit understanding and consent to proceed. All materials required for the procedure were available prior to procedure start. Site and side were marked prior to procedure and confirmed in the presence of the patient. PROCEDURE IN DETAIL: The patient was brought to the procedural suite and placed in the prone position. Patient was made comfortable with use of pillows under the head/chest, hips and ankles. Skin overlying the injection site on the affected side(s) was prepared broadly with ChloraPrep applicator and draped in a sterile manner. Aseptic technique was used throughout. The endplates of the vertebral bodies at the site(s) of interest were aligned in the AP view. Ipsilateral oblique angulation was utilized to optimize visualization of the intersection between the superior articulating process and transverse process at each target site. Local anesthesia was established by infiltration with approximately 5 mL of 1% lidocaine via a 1-1/2 inch 27-gauge needle. A 25-gauge 3.5 inch Quincke spinal needle was advanced until the needle tip contacted periosteum at the target site, right L1. Lateral view was utilized to confirm the appropriate placement of the needle tip just anterior to the facet line and superior to the pedicle. In the Lateral view, 0.25 mL of Omnipaque 300 contrast medium was injected after negative aspiration for CSF, blood or other bodily fluid, showing appropriate extra-articular spread of contrast without evidence of intravascular, foraminal or intrathecal placement. A 0.5 mL solution of 0.5% PF bupivacaine was injected after negative repeat aspiration. Appropriate spread of the injectate was confirmed with washout of previously injected contrast. No parasthesias were elicited. Needle was removed completely intact without difficulty. The same exact procedure was repeated for all remaining levels on the ipsilateral side, right L2, L3, modified as necessary to accommodate for the new target location with identical findings and results and no evidence of complication. The same exact procedure was repeated for all remaining levels on the contralateral side, left L1, L2, L3, modified as necessary to accommodate for the new target location with identical findings and results and no evidence of complication. Images were saved and documented in the patient chart. Patient's skin was cleaned and sterile bandage applied. The patient tolerated the procedure well. The patient was transported to the recovery area in stable condition where they were observed for an appropriate amount of time prior to discharge, without evidence of complication. Patient was instructed on the appropriate completion of a pain diary over the next 12-24 hours. The patient was instructed to avoid excessive activity for the next 48 hours, including climbing and frequent use of stairs. Showers only for 48 hours. They were instructed not to drive or operate heavy machinery for 24 hours. They are to monitor for severe headaches, fevers, chills, night sweat
[2024-01-18 08:51] VITALS: BP 125/77; PULSE 79; RESP 16; O2SAT 92
[2024-01-18] MEDS: LIDOCAINE HCL 1% PF INJ 5 ML VIAL XX (09:00)
[2024-01-18] MEDS: BUPivacaine HCL 0.5% 10 ML AMP INFILTRATE (09:00)
[2024-01-18 09:01] VITALS: BP 117/75; PULSE 72; RESP 18; O2SAT 91
[2024-01-18 09:08] VITALS: BP 113/79; PULSE 78; RESP 16; O2SAT 95
== END 2024-01-18 09:27 | disposition home or self-care (01) ==
PROVIDERS: PCP Nurse Practitioner Family; Visit Provider Anesthesiology Pain Medicine
PROC: (CPT 64493; principal; 2024-01-18 08:45)
DX: M47.816 Spondylosis without myelopathy or radiculopathy, lumbar region (principal)
CPT/HCPCS: 64493 ×2; 99199

== ENCOUNTER 2024-05-17 16:14 | Emergency (ER) | payer MEDICARE, MEDICAID, SELFPAY ==
--- NOTE | ~2024-05-17 | XR_ITS ---
EXAMINATION: XR chest 1V portable DATE: 05/17/2024 16:33 INDICATION: Weakness. TECHNIQUE: A single frontal view of the chest was obtained. COMPARISON: Chest 2 views 11/23/2013 FINDINGS: There is a nodule overlying the right first rib. There is mild atelectasis in left lower tomasa ng zone. No pleural effusion or pneumothorax. The heart size is normal. IMPRESSION: 1. Nodule overlying the right first rib, which may be a lung nodule suspicious for primary bronchogen ic carcinoma or may be rib hypertrophy. Noncontrast chest CT is recommended. Reviewed, dictated and finalized at location A. IMPRESSION: 1. Nodule overlying the right first rib, which may be a lung nodule suspicious for primary bronchogenic carcinoma or may be rib hypertrophy. Noncontrast chest CT is recommended.
--- NOTE | ~2024-05-17 | CT_ITS ---
EXAMINATION:CT diagnostic chest wo con DATE: 05/17/2024 17:54 INDICATION: Lung nodule. Abnormal chest radiograph. TECHNIQUE: Computed tomography (CT) of the chest was performed without intravenous contrast. Automate d exposure control and iterative reconstruction technique were employed. The dose-length product (DLP ) was 293.81 mGy-cm. COMPARISON: Chest single view 05/17/2024 FINDINGS: The lungs demonstrate mild atelectasis. There is a 5 mm nodule in left lower lobe, likely b enign. There is a 4 mm nodule in right lower lobe, likely benign. There is a 4 mm nodule in right upp er lobe, likely benign. No pleural effusion. The heart is normal. There are coronary artery calcifica tions. There are calcifications in the aortic valve. No pericardial effusion. There is ectasia of asc ending aorta measuring 4.4 cm. There are changes of gastric sleeve procedure. There is a 3 mm stone i n right kidney. There is a 5 mm stone in left kidney. There is mild thoracic spondylosis. IMPRESSION: 1. Stable pulmonary nodules, likely benign. 2. The chest radiograph finding correlates with normal hypertrophy at the junction of the right first rib and sternum. Reviewed, dictated and finalized at location A. IMPRESSION: 1. Stable pulmonary nodules, likely benign. 2. The chest radiograph finding correlates with normal hypertrophy at the junct ion of the right first rib and sternum.
[2024-05-17 16:12] VITALS: BP 120/83; PULSE 69; RESP 18; TEMP 36.8; O2SAT 96
--- NOTE | 2024-05-17 16:18 | ECG_ITS ---
Test Date: 2024-05-17 16:20:20 Measurements Intervals [place] Rate: 69 P: -35 MN: 191 QRS: -24 QRSD: 93 T: 34 QT: 404 QTc: 434 Interpretive Statements SINUS RHYTHM BORDERLINE LEFT AXIS DEVIATION [QRS AXIS < -20] NONSPECIFIC ST & T-WAVE ABNORMALITY ABNORMAL ECG No previous ECG available for comparison Electronically Signed On 05-18-2024 13:12:55 CDT by Enrique Phelps M.D.
--- NOTE | 2024-05-17 16:27 | ED.GENADULT ---
HPI - General Adult General Chief complaint: Weakness <Gordon Dorsey MD - Last Filed: 05/18/24 13:34> Stated complaint: weakness <Gordon Dorsey MD - Last Filed: 05/18/24 13:34> History of Present Illness HPI narrative: 69-year-old female presenting to the emergency department for evaluation for increased generalized weakness. Patient states has been ongoing for the last 2 weeks but is acutely worsened over the last few days. Patient does describe exertional fatigue when walking from her bedroom to her bathroom. Patient states that both upper and lower extremities feel weak with exertion. Patient denies any nausea vomiting diarrhea, recent injury, recent fevers or colds. Patient states she has been eating and drinking well. Patient denies any associated abdominal pain or pain with urination. <Gordon Dorsey MD - Last Filed: 05/18/24 13:34> Related Data Home medications: Home Medications Medication Instructions Recorded Confirmed calcium carbonate 600 mg-vitamin 1 tablet PO DAILY 10/30/19 01/25/24 D3 20 mcg (800 unit) tablet (Caltrate with Vitamin D3) multivitamin with iron (Daily 1 tablet PO DAILY 10/30/19 01/25/24 Vitamin with Iron tablet) vitamins A,C,K-ieqp-rxyhhy 4,296 1 cap PO BID 10/30/19 01/25/24 mcg-226 mg-90 mg capsule (PreserVision AREDS) tramadol 50 mg tablet mg PO 01/25/24 01/25/24 <Gordon Dorsey MD - Last Filed: 05/18/24 13:34> Allergies/adverse reactions: Allergies Allergy/AdvReac Type Severity Reaction Status Date / Time mushroom Allergy Unknown Rash Verified 02/29/24 14:48 strawberry Allergy Unknown Hives Verified 02/29/24 14:48 <Gordon Dorsey MD - Last Filed: 05/18/24 13:34> Review of Systems Review of Systems: All systems reviewed & are unremarkable except as noted in HPI and below <Gordon Dorsey MD - Last Filed: 05/18/24 13:34> PMF Past Medical History Medical History: Medical History Anxiety Bladder disorder Stimulator placed 05/2023 Essential (primary) hypertension Gastroesophageal reflux disease without esophagitis Hypothyroidism, unspecified Mixed hyperlipidemia Overactive bladder <Gordon Dorsey MD - Last Filed: 05/18/24 13:34> Surgical History Surgical History: Surgical History H/O eye surgery H/O radiofrequency ablation (RFA) of nerve of lumbar spine History of knee surgery <Gordon Dorsey MD - Last Filed: 05/18/24 13:34> Family History Family History: Family History Mother Family history of cardiac disorder Carcinoma of colon Family history of heart disease in male family member before age 55 Father Family history of Alzheimer's disease Family history of congestive heart failure Patient's father is Family history of heart disease in male family member before age 55 Sibling Hypertension <Gordon Dorsey MD - Last Filed: 05/18/24 13:34> Social History Social History: Social History Smoking packs per day: 1 Smoking cigarettes per day: 20.0 Years smoked: 15 Smoking pack-years: 15.00 Smoking status: Former smoker Tobacco type: cigarettes Second hand tobacco smoke exposure: No Smoking end date: 09/20/08 Alcohol intake: never Substance use: never Substance use type: does not use Do You Feel Safe in your Home?: Yes Lack of Transportation: No Lack of Food: Never True Current Housing: I Have Housing Concerned About Future Housing: No Difficulty Paying Gas/Electric Bills: No Difficulty Paying for Meds: No Currently Unemployed: No Education: High School Diploma/GED Difficulty w/ Childcare or Family Care: No Living arrangements: alone Gender identity (if verbalized by the patient): Female S
[2024-05-17 17:33] LABS: Basophils Percent Auto 0.4 % (0.2-1.2); Eosinophils Percent Auto 0.4 % (0-4.4); Hematocrit 41.5 % (37.0-47.0); Hemoglobin 13.6 g/dL (12.0-15.0); Immature Granulocyte Absolute 0.03 K/mm3 (0.00-0.031); Immature Granulocyte Percent A 0.4 % (0-0.5); Lymphocytes Absolute Auto 0.72 K/mm3 (0.9-3.2); Lymphocytes Percent Auto 8.8 % (18.3-44.2); Mean Corpuscular HGB Conc 32.8 g/dl (32-36); Mean Corpuscular Hemoglobin 30.3 pg (26-34); Mean Corpuscular Volume 92.4 fl (80-100); Mean Platelet Volume 11.4 fl (7.4-10.4); Monocytes Absolute Auto 0.5 K/mm3 (0.1-0.6); Monocytes Percent Auto 6.3 % (2.6-8.5); Neutrophils Absolute Auto 6.9 K/mm3 (1.3-6.7); Neutrophils Percent Auto 83.7 % (45.5-73.1); Platelet Count Result 197 k/mm3 (150-375); Red Blood Count 4.49 M/mm3 (4.2-5.4); Red Cell Distribution Width 14.1 % (11.5-14.5); White Blood Count 8.2 K/mm3 (4.5-10.0)
[2024-05-17 17:47] LABS: Alanine Aminotransferase 12 U/L (6-35); Albumin Level 3.6 g/dL (3.5-5.1); Alkaline Phosphatase 62 U/L (38-126); Anion Gap 9 mmol/L (4-12); Aspartate Amino Transferase 24 U/L (14-36); Blood Urea Nitrogen 13 mg/dL (7-17); Calcium 8.5 mg/dL (8.4-10.2); Carbon Dioxide 34 mmol/L (22-30); Chloride 96 mmol/L (98-107); Estimated CRCL calculation 46 ml/min; Estimated Glomerular Filt Rate 44; Glucose 116 mg/dL (65-110); Potassium 2.9 mmol/L (3.4-5.0); Sodium 139 mmol/L (137-145)
[2024-05-17 18:00] VITALS: BP 104/81; PULSE 64; RESP 18; O2SAT 97
[2024-05-17 18:09] LABS: Influenza A QL RT-PCR Negative (Negative); Influenza B QL RT-PCR Negative (Negative); RSV RNA, RT-PCR Negative (Negative); SARS-CoV-2 RNA PCR Negative (Negative)
[2024-05-17] MEDS: POTASSIUM CHLORIDE 20 MEQ PACKET (FOR LIQUID) 40 MEQ PO (18:35)
--- NOTE | 2024-05-17 19:52 | PC.NURSE ---
tech assisted pt to rest room. pt started having uncontrollable diarrhea. edp shannan updated
[2024-05-17 22:00] LABS: Add Urine Microscopic? YES; Appearance Urine Cloudy (Clear); Bacteria Urine None Seen /hpf; Bilirubin Urine Negative (Negative); Blood Urine 1+ (Negative); Color Urine Yellow (Yellow); Glucose Urine UA Negative (Negative); Ketones Urine Trace mg/dL (Negative); Leukocyte Esterase Ur 2+ LEU/UL (Negative); Need Manual Microscopic Reviewed; Nitrate Urine Negative (Negative); Protein Urine 2+ mg/dL (Negative); Specific Grav Ur 1.009 (1.001-1.035); Squamous Epithelial Cell Urine Few /hpf (Few); pH Urine 6.5 (5.0-9.0)
[2024-05-17 22:26] VITALS: BP 131/79; PULSE 70; RESP 14; TEMP 37.2; O2SAT 98
== END 2024-05-18 01:13 | disposition home or self-care (01) ==
PROVIDERS: Emergency Provider Emergency Medicine; PCP Nurse Practitioner Family
DX: N39.0 Urinary tract infection, site not specified (principal); R53.1 Weakness; Z20.822 Contact with and (suspected) exposure to COVID-19; I10 Essential (primary) hypertension; E03.9 Hypothyroidism, unspecified; E78.2 Mixed hyperlipidemia; K21.9 Gastro-esophageal reflux disease without esophagitis; N32.81 Overactive bladder; F41.9 Anxiety disorder, unspecified; Z87.891 Personal history of nicotine dependence; Z79.899 Other long term (current) drug therapy; R94.31 Abnormal electrocardiogram [ECG] [EKG]; R91.8 Other nonspecific abnormal finding of lung field
CPT/HCPCS: 36415; 71045; 71250; 80053; 81001; 85025; 87086; 87637; 93005; 96365; 96366; 99284; A9270; J0696

== ENCOUNTER 2024-06-19 15:42 | Emergency (ER) | payer MEDICARE, MEDICAID, SELFPAY ==
[2024-06-19] VITALS (14 sets, daily range): BP systolic 77–139; BP diastolic 49–76; PULSE 59–92; RESP 14–18; TEMP 36.8; O2SAT 97–100
--- NOTE | ~2024-06-19 | XR_ITS ---
EXAMINATION: XR chest 2V DATE: 06/19/2024 16:24 INDICATION: Weakness. TECHNIQUE: Frontal and lateral views of the chest were obtained. COMPARISON: Chest single view 05/17/2024, chest CT 05/17/2024 FINDINGS: There is no pneumonia, pleural effusion, or pneumothorax. The heart size is normal. IMPRESSION: 1. No acute cardiopulmonary disease. Reviewed, dictated and finalized at location A.
--- NOTE | 2024-06-19 15:54 | ECG_ITS ---
Test Date: 2024-06-19 15:57:51 Measurements Intervals [place] Rate: 60 P: 104 DE: 350 QRS: -20 QRSD: 98 T: 36 QT: 448 QTc: 450 Interpretive Statements SINUS RHYTHM ATRIAL PREMATURE COMPLEX DELAYED PRECORDIAL R/S TRANSITION NONSPECIFIC ST-T WAVE ABNORMALITY- DIFFUSE LEADS BASELINE ARTIFACT- I, II, III, AVR, AVL, AVF, V3 Compared to ECG 05/17/2024 16:20:20 NO SIGNIFICANT CHANGE Electronically Signed On 06-19-2024 16:48:40 CDT by Abdirizak La D.O.
--- NOTE | 2024-06-19 17:06 | ED.WEAKNESS ---
HPI - Weakness General Chief complaint: Weakness <Deng Enrique III, DO - Last Filed: 06/27/24 08:13> Stated complaint: weakness, low BP <Deng Enrique III, DO - Last Filed: 06/27/24 08:13> Time Seen by Provider: 06/19/24 16:43 <Deng Enrique III, DO - Last Filed: 06/27/24 08:13> History of Present Illness HPI Narrative: Pt presents with generalized weakness worsening over the last several weeks. Pt says she is having trouble walking from her bedroom to the kitchen. Pt denies CP or SOB. Pt denies fever or one sided weakness. <Deng Enrique III, DO - Last Filed: 06/27/24 08:13> Related Data Home medications: Home Medications Medication Instructions Recorded Confirmed calcium 600 mg (as 1 tablet PO DAILY 10/30/19 01/25/24 carbonate)-vitamin D3 20 mcg (800 unit) tablet (Caltrate with Vitamin D3) multivitamin with iron (Daily 1 tablet PO DAILY 10/30/19 01/25/24 Vitamin with Iron tablet) vitamins A,C,F-siao-pqswxb 4,296 1 cap PO BID 10/30/19 01/25/24 mcg-226 mg-90 mg capsule (PreserVision AREDS) tramadol 50 mg tablet mg PO 01/25/24 01/25/24 <Deng Enrique III, DO - Last Filed: 06/27/24 08:13> Allergies/Adverse reactions: Allergies Allergy/AdvReac Type Severity Reaction Status Date / Time mushroom Allergy Unknown Rash Verified 06/22/24 14:44 strawberry Allergy Unknown Hives Verified 06/22/24 14:44 <Deng Enrique III, DO - Last Filed: 06/27/24 08:13> Review of Systems Review of Systems: All systems reviewed & are unremarkable except as noted in HPI and below <Deng Enrique III, DO - Last Filed: 06/27/24 08:13> PMFSH Past Medical History Medical History: Medical History Anxiety Bladder disorder Stimulator placed 05/2023 Essential (primary) hypertension Gastroesophageal reflux disease without esophagitis Hypothyroidism, unspecified Mixed hyperlipidemia Overactive bladder <Deng Enrique III, DO - Last Filed: 06/27/24 08:13> Surgical History Surgical History: Surgical History H/O eye surgery H/O radiofrequency ablation (RFA) of nerve of lumbar spine History of knee surgery <Deng Wesley Klaus MARTINES, DO - Last Filed: 06/27/24 08:13> Family History Family History: Family History Mother Family history of cardiac disorder Carcinoma of colon Family history of heart disease in male family member before age 55 Father Family history of Alzheimer's disease Family history of congestive heart failure Patient's father is Family history of heart disease in male family member before age 55 Sibling Hypertension <Deng Enrique III, DO - Last Filed: 06/27/24 08:13> Social History Social History: Social History Smoking packs per day: 1 Smoking cigarettes per day: 20.0 Years smoked: 15 Smoking pack-years: 15.00 Smoking status: Former smoker Tobacco type: cigarettes Second hand tobacco smoke exposure: No Smoking end date: 09/20/08 Alcohol intake: never Substance use: never Substance use type: does not use Do You Feel Safe in your Home?: Yes Lack of Transportation: No Lack of Food: Never True Current Housing: I Have Housing Concerned About Future Housing: No Difficulty Paying Gas/Electric Bills: No Difficulty Paying for Meds: No Currently Unemployed: No Education: High School Diploma/GED Difficulty w/ Childcare or Family Care: No Living arrangements: alone Occupation/Education: retired Gender identity (if verbalized by the patient): Female Spiritual care concerns: No Agree to blood products: Yes <Deng Enrique III, DO - Last Filed: 06/27/24 08:13> Exam Const: General: healthy appearing and no acute di
[2024-06-19] MEDS: ONDANSETRON INJ 4 MG/2 ML VIAL IV PUSH (17:37)
[2024-06-19] MEDS: SODIUM CHLORIDE 0.9% IV 1,000 ML 999 ML IV CONT ×2 (17:37→19:07)
[2024-06-19 17:43] LABS: Basophils Percent Auto 0.4 % (0.2-1.2); Eosinophils Percent Auto 0.1 % (0-4.4); Hematocrit 42.9 % (37.0-47.0); Hemoglobin 13.8 g/dL (12.0-15.0); Immature Granulocyte Absolute 0.02 K/mm3 (0.00-0.031); Immature Granulocyte Percent A 0.3 % (0-0.5); Lymphocytes Absolute Auto 0.58 K/mm3 (0.9-3.2); Lymphocytes Percent Auto 7.6 % (18.3-44.2); Mean Corpuscular HGB Conc 32.2 g/dl (32-36); Mean Corpuscular Hemoglobin 29.9 pg (26-34); Mean Corpuscular Volume 92.9 fl (80-100); Mean Platelet Volume 12.5 fl (7.4-10.4); Monocytes Absolute Auto 0.4 K/mm3 (0.1-0.6); Monocytes Percent Auto 5.1 % (2.6-8.5); Neutrophils Absolute Auto 6.6 K/mm3 (1.3-6.7); Neutrophils Percent Auto 86.5 % (45.5-73.1); Platelet Count Result 189 k/mm3 (150-375); Red Blood Count 4.62 M/mm3 (4.2-5.4); Red Cell Distribution Width 14.6 % (11.5-14.5); White Blood Count 7.7 K/mm3 (4.5-10.0)
[2024-06-19 18:02] LABS: Alanine Aminotransferase 14 U/L (6-35); Albumin Level 3.7 g/dL (3.5-5.1); Alkaline Phosphatase 60 U/L (38-126); Anion Gap 7 mmol/L (4-12); Aspartate Amino Transferase 28 U/L (14-36); Bilirubin,Total 0.8 mg/dL (0.2-1.3); Blood Urea Nitrogen 11 mg/dL (7-17); Calcium 8.7 mg/dL (8.4-10.2); Carbon Dioxide 34 mmol/L (22-30); Chloride 99 mmol/L (98-107); Estimated CRCL calculation 40 ml/min; Estimated Glomerular Filt Rate 37; Glucose 100 mg/dL (65-110); Sodium 140 mmol/L (137-145)
[2024-06-19] MEDS: POTASSIUM CHLORIDE 20 MEQ ER TABLET PO (18:44)
[2024-06-19] MEDS: KCL 20 MEQ/SW 100 ML 100 ML 50 MEQ IVPB (18:45)
[2024-06-19 20:09] LABS: Add Urine Microscopic? YES; Appearance Urine Cloudy (Clear); Bacteria Urine Rare /hpf; Bilirubin Urine Negative (Negative); Blood Urine Non-Hemolyzed Trace (Negative); Color Urine Yellow (Yellow); Glucose Urine UA Negative (Negative); Ketones Urine Trace mg/dL (Negative); Leukocyte Esterase Ur 3+ LEU/UL (Negative); Need Manual Microscopic Reviewed; Nitrate Urine Negative (Negative); Non Pathogenic Casts >20; Protein Urine 1+ mg/dL (Negative); RBC Urine 0-2 /hpf (0-2); Specific Grav Ur 1.011 (1.001-1.035); Squamous Epithelial Cell Urine Moderate /hpf (Few); WBC Urine >100 /hpf (0-3); pH Urine 6.5 (5.0-9.0)
== END 2024-06-19 21:39 | disposition home or self-care (01) ==
PROVIDERS: Emergency Medicine; Emergency Provider Emergency Medicine; PCP Nurse Practitioner Family
DX: N39.0 Urinary tract infection, site not specified (principal); E86.0 Dehydration; E87.6 Hypokalemia; R53.1 Weakness; I10 Essential (primary) hypertension; E03.9 Hypothyroidism, unspecified; E78.2 Mixed hyperlipidemia; K21.9 Gastro-esophageal reflux disease without esophagitis; N32.81 Overactive bladder; Z87.891 Personal history of nicotine dependence; Z79.899 Other long term (current) drug therapy; I49.1 Atrial premature depolarization; R94.31 Abnormal electrocardiogram [ECG] [EKG]
CPT/HCPCS: 36415; 71046; 80053; 81001; 85025; 87086; 87088; 93005; 96361; 96365; 96366; 96367; 96375; 99284; A9270; J0696; J2405; J3480; J7030

== ENCOUNTER 2024-06-22 14:04 | Emergency (ER) | payer MEDICARE, MEDICAID, SELFPAY ==
--- NOTE | ~2024-06-22 | XR_ITS ---
EXAMINATION: XR chest 2V DATE: 06/22/2024 15:29 INDICATION: Weakness TECHNIQUE: PA and lateral views of the chest were obtained. COMPARISON: Chest radiograph dated 06/19/2024 FINDINGS: Mild opacities at the anterior left lung base corresponding to a small paracardial fat pad. No other airspace opacities, pulmonary edema, pleural effusion or pneumothorax. Heart size is normal. Mild to moderate thoracic spondylosis. IMPRESSION: 1. No acute cardiopulmonary disease. Reviewed, dictated and finalized at location A.
[2024-06-22 14:40] VITALS: BP 105/71; PULSE 78; RESP 16; TEMP 35.8; O2SAT 95
--- NOTE | 2024-06-22 14:42 | ECG_ITS ---
Test Date: 2024-06-22 15:27:05 Measurements Intervals [place] Rate: 109 P: 152 OR: 155 QRS: 107 QRSD: 102 T: -37 QT: 314 QTc: 423 Interpretive Statements RIGHT AND LEFT ARM LEADS REVERSED PLEASE REPEAT ECG ST ELEVATION CONSISTENT WITH INJURY, PERICARDITIS, OR EARLY REPOLARIZATION [ST ELEVATION W/O NORMALLY INFLECTED T WAVE] NONSPECIFIC ST & T-WAVE ABNORMALITY Compared to ECG 06/19/2024 15:57:51 Incomplete right bundle-branch block now present ST (T wave) deviation now present Early repolarization now present T-wave abnormality now present Atrial premature complex(es) no longer present Electronically Signed On 06-22-2024 15:30:03 CDT by Jesus Hughes M.D.
--- NOTE | 2024-06-22 14:42 | ED.WEAKNESS ---
HPI - Weakness General Chief complaint: Weakness <MONIQUE Martinez Last Filed: 06/22/24 14:46> Stated complaint: weak, low BP <MONIQUE Martinez Last Filed: 06/22/24 14:46> Time Seen by Provider: 06/22/24 14:42 <Tresa Hutchins PA-C - Last Filed: 06/22/24 14:46> Focused HPI: Patient is a 69-year-old female who presents the ED with report of weakness. Patient reports weakness has been ongoing for past 1 week. She was seen in the ED here on Wednesday for this weakness, found to have low potassium, low blood pressures, UTI. She was ultimately discharged home. She had a follow-up appointment with her primary care doctor today and had low blood pressures in the office, reporting systolic blood pressures in the 70s. She was then sent here for further evaluation. Patient denies focal weakness. States she feels weak all over, troubling standing up due to the weakness. Reports intermittently feeling shaky. Denies chest pain, shortness of breath, dizziness, fevers, cough or cold sx's. GENERAL: Elderly but well-appearing, well-nourished, and in no acute distress. HEAD: Normocephalic, atraumatic. CHEST: Clear to auscultation. ?No respiratory distress. HEART: Regular rate and rhythm.? NEURO: ?Alert and oriented x3. Equal rib cutter strength bilaterally. No pronator drift. No focal deficits. Patient screened in triage and initial orders placed.? ?Additional care and disposition to be based upon?diagnostic testing and treatment. <Tresa Hutchins PA-C - Last Filed: 06/22/24 14:46> Source: patient <MONIQUE Martinez Last Filed: 06/22/24 14:46> Mode of arrival: ambulatory <MONIQUE Martinez Last Filed: 06/22/24 14:46> Limitations: no limitations <MONIQUE Martinez Last Filed: 06/22/24 14:46> History of Present Illness HPI Narrative: 69-year-old female presenting with generalized weakness. States that she has been struggling with generalized weakness for the last month or 2. States that sometimes she goes so weak that she is unable to stand. She has had to call EMS multiple times for lift assist. States that she has been seen here multiple times over the last several weeks and diagnosed with hypokalemia. She has been able to go home but she continues to have problems with her potassium. States that she is even taking chqd-gop-pelbzje potassium supplements. Also complains of chronic nausea. No pain. No fevers. No other complaints. <Jordana Angulo MD - Last Filed: 06/22/24 21:29> Related Data Home medications: Home Medications Medication Instructions Recorded Confirmed calcium 600 mg (as 1 tablet PO DAILY 10/30/19 01/25/24 carbonate)-vitamin D3 20 mcg (800 unit) tablet (Caltrate with Vitamin D3) multivitamin with iron (Daily 1 tablet PO DAILY 10/30/19 01/25/24 Vitamin with Iron tablet) vitamins A,C,F-rncg-ozsubp 4,296 1 cap PO BID 10/30/19 01/25/24 mcg-226 mg-90 mg capsule (PreserVision AREDS) tramadol 50 mg tablet mg PO 01/25/24 01/25/24 <Tresa Hutchins PA-C - Last Filed: 06/22/24 14:46> Allergies/Adverse reactions: Allergies Allergy/AdvReac Type Severity Reaction Status Date / Time mushroom Allergy Unknown Rash Verified 06/22/24 14:44 strawberry Allergy Unknown Hives Verified 06/22/24 14:44 <Tresa Hutchins PA-C - Last Filed: 06/22/24 14:46> Review of Systems Review of Systems: All systems reviewed & are unremarkable except as noted in HPI and below <Jordana Angulo MD - Last Filed: 06/22/24 21:29> [facility] Past Medical History Medical History: Medical History Anxiety Bladder disorder Stimulator placed 05/2023 Essential (primary) hypertension Gastroesophageal reflux disease without esophagitis Hypothyroidism, unspecified Mixed hyperlipidemia Overactive bladder <Tresa Hutchins PA-C - Last File
--- NOTE | 2024-06-22 19:15 | PC.NURSE ---
pt was seen in this ER last week for the same thing- was found to have low potassium, dehydration, uti. patient has been taking cefalaxin as prescribed.
[2024-06-22 19:18] VITALS: BP 143/80; PULSE 66; RESP 18; O2SAT 99
[2024-06-22] MEDS: SODIUM CHLORIDE 0.9% IV 1,000 ML 999 ML IV CONT (20:16)
[2024-06-22 20:29] LABS: Basophils Percent Auto 0.5 % (0.2-1.2); Eosinophils Percent Auto 0.3 % (0-4.4); Hematocrit 41.5 % (37.0-47.0); Hemoglobin 13.7 g/dL (12.0-15.0); Immature Granulocyte Absolute 0.02 K/mm3 (0.00-0.031); Immature Granulocyte Percent A 0.3 % (0-0.5); Lymphocytes Absolute Auto 1.19 K/mm3 (0.9-3.2); Lymphocytes Percent Auto 19.6 % (18.3-44.2); Mean Corpuscular Hemoglobin 30.4 pg (26-34); Mean Corpuscular Volume 92.2 fl (80-100); Mean Platelet Volume 12.6 fl (7.4-10.4); Monocytes Absolute Auto 0.6 K/mm3 (0.1-0.6); Monocytes Percent Auto 9.2 % (2.6-8.5); Neutrophils Absolute Auto 4.2 K/mm3 (1.3-6.7); Neutrophils Percent Auto 70.1 % (45.5-73.1); Platelet Count Result 195 k/mm3 (150-375); Red Cell Distribution Width 14.6 % (11.5-14.5); White Blood Count 6.1 K/mm3 (4.5-10.0)
[2024-06-22 20:38] LABS: Prothrombin Time 13.4 Seconds (11.1-14.7)
[2024-06-22 20:39] LABS: Partial Thromboplastin Time 23.6 Seconds (22.3-36.8)
[2024-06-22 20:42] LABS: Alanine Aminotransferase 12 U/L (6-35); Albumin Level 3.7 g/dL (3.5-5.1); Alkaline Phosphatase 53 U/L (38-126); Anion Gap 4 mmol/L (4-12); Aspartate Amino Transferase 27 U/L (14-36); Bilirubin,Total 0.8 mg/dL (0.2-1.3); Blood Urea Nitrogen 10 mg/dL (7-17); Calcium 8.6 mg/dL (8.4-10.2); Carbon Dioxide 34 mmol/L (22-30); Chloride 98 mmol/L (98-107); Creatine Kinase 65 U/L (30-135); Estimated CRCL calculation 49 ml/min; Estimated Glomerular Filt Rate 49; Glucose 90 mg/dL (65-110); Magnesium 1.4 mg/dL (1.6-2.3); Potassium 3.4 mmol/L (3.4-5.0); Sodium 136 mmol/L (137-145)
--- NOTE | 2024-06-22 20:43 | PC.NURSE ---
Talked to patient about needing a urine sample, she stated that there is no way for her to pee right now and she would try later
[2024-06-22 20:55] LABS: Troponin I < 0.012 ng/mL (0.000-0.034)
[2024-06-22] MEDS: MAGNESIUM OXIDE 400 MG TABLET PO (20:57)
--- NOTE | 2024-06-22 21:00 | ECG_ITS ---
Test Date: 2024-06-22 21:07:27 Measurements Intervals [place] Rate: 60 P: 67 TN: 222 QRS: -18 QRSD: 96 T: 3 QT: 429 QTc: 430 Interpretive Statements SINUS RHYTHM WITH MARKED SINUS ARRHYTHMIA WITH FIRST DEGREE AV BLOCK NONSPECIFIC T-WAVE ABNORMALITY Compared to ECG 06/22/2024 15:27:05 First degree AV block now present ST (T wave) deviation no longer present Early repolarization no longer present T-wave abnormality still present Electronically Signed On 06-23-2024 10:39:43 CDT by Jesus Hughes M.D.
[2024-06-22 21:17] LABS: Influenza A QL RT-PCR Negative (Negative); Influenza B QL RT-PCR Negative (Negative); RSV RNA, RT-PCR Negative (Negative); SARS-CoV-2 RNA PCR Negative (Negative)
[2024-06-22 21:58] VITALS: BP 141/78; PULSE 74; RESP 18; TEMP 37.1; O2SAT 99
== END 2024-06-22 21:40 | disposition home or self-care (01) ==
PROVIDERS: Physician Assistant; Emergency Provider Emergency Medicine; PCP Nurse Practitioner Family
DX: R53.1 Weakness (principal); E83.42 Hypomagnesemia; Z20.822 Contact with and (suspected) exposure to COVID-19; I10 Essential (primary) hypertension; E03.9 Hypothyroidism, unspecified; E78.2 Mixed hyperlipidemia; N32.81 Overactive bladder; K21.9 Gastro-esophageal reflux disease without esophagitis; F41.9 Anxiety disorder, unspecified; Z96.82 Presence of neurostimulator; Z87.891 Personal history of nicotine dependence; Z79.899 Other long term (current) drug therapy; I45.10 Unspecified right bundle-branch block; I44.0 Atrioventricular block, first degree; R94.31 Abnormal electrocardiogram [ECG] [EKG]
CPT/HCPCS: 36415; 71046; 80053; 82550; 83735; 84484; 85025; 85610; 85730; 87637; 93005; 96360; 99284; A9270; J7030

== ENCOUNTER 2024-11-14 00:37 | Day surgery (SDC) | payer MEDICARE, MEDICAID, SELFPAY ==
[2024-10-30 14:15] VITALS: BMI 30.6
--- OUTSIDE RECORDS SUMMARY | 2024-11-14 00:41 | XMS_ITS | Clinical Summary ---
Author Organization [facility] [employer] Address [address] [place] [address] Care Team Providers Care Bank And Savings Securities Trader Name Role Phone Sultana Smith RN Unavailable Unavailable Keshawn Stone DO Primary Care Provider [phone] Jerzy Ramírez MD Unavailable [phone] Source Comments [facility] [employer],non-owned Affiliates and Associated Physician Practices is amultiple site organization consisting of ambulatory clinics and hospital sitesin [place], [place] and [place]. This disclosure is being madepursuant to the Care Everywhere program and may not contain all information available regarding this patient. Last updated 18.[facility] [employer] Allergies Active Allergy Reactions Criticality Noted Date Comments Mushroom Extract Complex Rash Medium 01/05/2019 [place] Urticaria Medium 02/21/2019 Medications * Be aware that medications may not be up to date on this document. Alwaysverify current medications with the patient. Medication Sig Dispensed Refills Start Date End Date Status levothyroxine (SYNTHROID) 112 MCG tablet Take 1 (one) tablet by mouth daily before breakfast Active carvedilol (COREG) 12.5 MG tablet Take 1 (one) tablet by mouth 2 times daily with morning and evening meal Active atorvastatin (LIPITOR) 80 MG tablet Take 1 (one) tablet by mouth at bedtime Active PARoxetine (PAXIL) 40 MG tablet Take 1 (one) tablet by mouth once daily Active traZODone (DESYREL) 50 MG tablet Take 1 (one) tablet by mouth at bedtime Active folic acid (FOLVITE) 1 MG tablet Take 1 (one) tablet by mouth once daily Active losartan (COZAAR) 100 MG tablet Take 1 tablet by mouth once daily 30 tablet 03/29/2019 Active Multiple Vitamins-Minerals (ICAPS AREDS 2 PO) Active Biotin 17241 MCG TABS Take 1 (one) tablet by mouth once daily Active ferrous sulfate 325 (65 FE) MG tablet Take 1 tablet by mouth once daily 100 tablet 07/07/2019 Active amLODIPine (NORVASC) 5 MG tablet 12/27/2020 Active traMADol (Ultram) 50 MG tablet 11/07/2021 Active Active Problems Problem Noted Date Diagnosed Date 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 S/P complete hysterectomy 07/06/2019 Morbid obesity 03/27/2019 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 Atypical squamous cells of u ndetermined significance on cytologic smear of cervix (ASC-US) 11/09/2017 Overview (12/20/2017): 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 Cancer of endocervical canal Family History Medical History Relation Name Comments Hypertension Brother CAD (Coronary Artery Disease) Father CAD (Coronary Artery Disease) Mother Cancer - Colon Mother Relation Name Status Comments Brother Father Mother Social History Tobacco Use Types Packs/Day Years Used Date Smoking Tobacco: Former Cigarettes Q uit: 09/20/2007 Smokeless Tobacco: Never Tobacco Cessation:Counseling Given: Not Answered Alcohol Use Standard Drinks/Week Comments No 0 (1 standard drink = 0.6 oz pur e alcohol) AUDIT-C Answer Date Recorded Q1: How often do you have a drink containing alc ohol? Never 12/11/2020 Average Number of Drinks Not on file 021 Frequency of Binge Drinking Not on file 11/19 Sex and Gender Information Value Date Recorded Sex Assigned at Female 05/13/2021 9:11 AM CDT Gender Identity Female 05/13/2021 9:11 AM CDT Sexual Orientation Straight 05/13/2021 9: 11 AM CDT Last Filed Vital Signs Vital Sign Reading Time Taken Comments Blood Pressure 106/82 10/07/2022 1:58 PM CARE TEAM ASSISTANT Pulse 83 05/20/2021 1:15 PM CDT Temperature 36.7 C (98 F) 05/20/2021 1:15 PM CDT Respiratory Rate 18 08/11/2019 12:1 8 PM CARE TEAM ASSISTANT Oxygen Saturation 93% 08/11/2019 12: 18 PM CARE TEAM ASSISTANT Inhaled Oxygen Concentration - - Weight 103.2 kg (227 lb 9.6 oz) 10/07/2022 1:58 PM CARE TEAM ASSISTANT Height 167.6 cm (5' 6 ) 10/07/2022 1:58 PM CARE TEAM ASSISTANT Body Mass Index 36.74 10/07/2022 1:58 PM CARE TEAM ASSISTANT Plan of Treatment Health Maintenance Due Date Last Done Comments BONE DENSITY TESTING 1955 COLOGUARD (AGES 45-75) - COLON CA SCREENING 1953 COLON MONITORING 1953 COLONOSCOPY - COLON CA SCREENING 1953 CT COLONOGRAPHY - COLON CA SCREENING 1955 Colorectal Cancer Screening 1955 FIT - COLON CA SCREENING 1953 FLEX SIG - COLON CA SCREENING 1955 MAMMOGRAM 1955 MEDICARE AWV 12 MONTHS 1953 HEPATITIS C SCREENING 01/27/1971 DTAP/TDAP/TD VACCINES (1 - Tdap) 02/01/1972 PNEUMOCOCCAL VACCINE 50+ (1 of 1 - PCV) 2003 ZOSTER VACCINE (1 of 2) 2003 SCREENING FOR DIABETES 04/12/2023 0, 08/02/2019, 07/07/2019, Additional history exists COVID-19 VACCINE (3 - 2023- season) 2024 12/03/2020, 11/12/2020 INFLUENZA VACCINE (#1) 2024 DEPRESSION SCREENING 09/20/2024 Respiratory Syncytial Virus (RSV) Vaccine Pt: or over 60 yrs (1 - 1-dose 75+ series) 02/01/2028 HEPATITIS B VACCINE Aged Out No longe r eligible based on patient's age to complete this topic HIB VACCINE Aged Out No longer eligi ble based on patient's age to complete this topic HPV VACCINE Aged Out No longer eligi ble based on patient's age to complete this topic MENINGOCOCCAL (Group B) VACCINE Aged Out No longer eligible based on patient's age to complete this topic MENINGOCOCCAL VACCINE Aged Out No ketan ioana eligible based on patient's age to complete this topic Procedures Procedure Name Priority Date/Time Associated Diagnosis Comments COMPREHENSIVE METABOLIC PANEL 04/12/2020 11:15 AM CDT from Last 3 Months or Most Recently Relevant to Health Maintenance Results * (ABNORMAL) COMPREHENSIVE METABOLIC PANEL (04/12/2020 11:15 AM CDT) Glucose 98 65 - 99 mg/dL [facility] Comment: Fasting reference interval BUN 15 7 - 25 mg/dL [facility] Creatinine 0.73 0.50 - 0.99 mg/dL [facility] Comment: For patients >49 years of age, the reference limit for Creatinine is approximately 13% higher for people identified as -French. eGFR by MDRD 85 > OR = 60 mL/min/1 .73m2 [facility] eGFR by MDRD 99 > OR = 60 mL/min/1 .73m2 [facility] BUN/Creatinine Ratio NOT APPLICABLE 6 - 22 (calc) [facility] Sodium 145 135 - 146 mmol/L [facility] Potassium 3.7 3.5 - 5.3 mmol/L [facility] Chloride 106 98 - 110 mmol/L [facility] CO2 34(H) 20 - 32 mmol/L [facility] Calcium 9.0 8.6 - 10.4 mg/dL [facility] Protein Total 5.8(L) 6.1 - 8.1 g/dL [facility] Albumin 3.8 3.6 - 5.1 g/dL [facility] Globulin Total 2.0 1.9 - 3.7 g/dL (calc) [facility] Albumin/Globulin Ratio 1.9 1.0 - 2.5 (calc) [facility] Bilirubin Total 0.7 0.2 - 1.2 mg/dL [facility] Alkaline Phosphatase 51 37 - 153 U/L [facility] AST 24 10 - 35 U/L [facility] ALT 36(H) 6 - 29 U/L [facility] Comment: Test Performed at: [facility] [id number] [address] MARY VASQUEZ DO,MPH 04/12/2020 11:1 5 AM CDT 04/12/2020 11:16 AM CDT Phyllis Irving [employer] [employer] - CHEMIS TRY ORDERABLES [facility] [address] [place] [address] from Last 3 Months or Most Recently Relevant to Health Maintenance Advance Directives * Full Code (Latest Code Status on File) Date Activated Date Inactivated Comments 03/27/2019 8:28 PM 03/28/2019 7:43 PM Care Teams Bank And Savings Securities Trader Relationship Specialty Start Date End Date Keshawn Stone DO [address] [place] [address] PCP - General Internal Medicine 02/21/19 Sultana Smith, RN Registered Nurse 11/29/17 Jerzy Ramírez MD [address] [address] AUGER PRESS OPERATOR Oncology 09/03/22
--- OUTSIDE RECORDS SUMMARY | 2024-11-14 00:41 | XMS_ITS | Clinical Summary ---
Author Organization [facility] Address [address], [place] [address] Phone Care Team Providers Care Game Show Host Name Role Phone Rodríguez Carrasquillo DO Unavailable [phone] Twila Cardona APRN Primary Care Provider [phone] Allergies No known active allergies Medications Cholecalciferol (VITAMIN D-3 SUPER STRENGTH) 2000 UNIT Tablet Take by mouth daily. Active HYDROcodone-tenzin taminophen (NORCO) 5-325 MG Tablet Take 1 Tab by mouth 2 times daily. Active losartan-hydroc hlorothiazide (HYZAAR) 100-12.5 MG Tablet Take 1 Tab by mouth daily. Active atorvastatin (LIPITOR) 80 MG Tablet Take 80 mg by mouth daily. Active dilTIAZem (DILACOR XR) 240 MG CAPSULE SR 24 HR Take 240 mg by mouth daily. Active PARoxetine (PAXIL) 40 MG Tablet Take 40 mg by mouth daily. Active Meloxicam 15 MG Tablet Take 15 mg by mouth daily. Active levothyroxine (SYNTHROID) 112 MCG Tablet Take 112 mcg by mouth daily. Active traZODone (DESYREL) 50 MG Tablet Take 50 mg by mouth nightly as needed for Sleep. Active oxybutynin (DITROPAN) 5 MG TabletIndicatio ns:OAB (overactive bladder) Take 1 Tab by mouth 3 times daily. 180 Tab 3 05/03/2017 Active cyclobenzaprine (FLEXERIL) 10 MG Tablet Take 10 mg by mouth 3 times daily as needed for Muscle spasms. Active carvedilol (COREG) 12.5 MG Tablet Take 12.5 mg by mouth 2 times daily. Active amLODIPine (NORVASC) 2.5 MG Tablet Take 2.5 mg by mouth daily. Active Active Problems No known active problems Immunizations Immunization Administration Dates Next Due Covid-19, Mrna, Lnp-s, Pf, 30 Mcg/0.3 Ml Dose (P fizer) 12/03/2020,11/12/2020 Family History Medical History Relation Name Comments Hypertension Brother Heart Disease Father Heart Disease Mother Hypertension Sister Relation Name Status Comments Brother Father Mother Sister Social History Tobacco Use Types Packs/Day Years Used Date Smoking Tobacco: Former Smokeless Tobacco: Never Alcohol Use Standard Drinks/Week Comments No 0 (1 standard drink = 0.6 oz pur e alcohol) Sexually Active Control Partners Comments Never Comments No Sex and Gender Information Value Date Recorded Sex Assigned at Not on file Legal Sex Female 10:17 PM CDT Gender Identity Not on file Sexual Orientation Not on file Last Filed Vital Signs Vital Sign Reading Time Taken Comments Blood Pressure 130/82 09/06/2017 1:10 PM PHILOSOPHY INSTRUCTOR Pulse 83 09/06/2017 1:10 PM PHILOSOPHY INSTRUCTOR Temperature 36.6 C (97.8 F) 09/06/2017 1:10 PM PHILOSOPHY INSTRUCTOR Respiratory Rate 16 09/06/2017 1:10 PM PHILOSOPHY INSTRUCTOR Oxygen Saturation 95% 09/06/2017 1:10 PM PHILOSOPHY INSTRUCTOR Inhaled Oxygen Concentration - - Weight 122.5 kg (270 lb) 09/06/2017 1:10 PM PHILOSOPHY INSTRUCTOR Height 167.6 cm (5' 6 ) 09/06/2017 1:10 PM PHILOSOPHY INSTRUCTOR Body Mass Index 43.58 09/06/2017 1:10 PM PHILOSOPHY INSTRUCTOR Plan of Treatment Health Maintenance Due Date Last Done Comments DEXA Bone Density 1955 Hepatitis C Virus (HCV) Screening 1955 TdaP Immunization 1953 Cologuard 2003 Immunochemical Fecal Occult Blood 2003 Mammogram 2003 Pneumococcal Immunization (50+ years) (1 of 1 - PCV) 2003 Zoster Immunization (1 of 2) 2003 Influenza Immunization (#1) 2024 09/0 11/2019, 06/30/2019, 08/03/2018, Additional history exists SARS-COV-2 Immunization ( season) 2024 07/01/2021, 12/03/2020, 11/12/2020 Respiratory Syncytial Virus (RSV) Immunization (Adult) (1 - 1-dose 75+ series) 02/01/2028 Colonoscopy 01/06/2031 01/06/2021, 10/17/2015 Colorectal Cancer Screening 01/06/2031 01/06/2021, 10/17/2015 Hepatitis B Immunization Aged Out No longer eligible based on patient's age to complete this topic Meningococcal Immunization (ACWY) Aged Out No longer eligible based on patient's age to complete this topic Rotavirus Immunization Aged Out No lo nger eligible based on patient's age to complete this topic Procedures Procedure Name Priority Date/Time Associated Diagnosis Comments COLONOSCOPY Routine 01/06/2021 from Last 3 Months or Most Recently Relevant to Health Maintenance Results * COLONOSCOPY (01/06/2021) Rodríguez Carrasquillo DO PROCEDURE/MINOR SURGICAL ORDERA BLES Final Result from Last 3 Months or Most Recently Relevant to Health Maintenance Insurance MEDICARE MEDICAID [place] Care Teams Game Show Host Relationship Specialty Start Date End Date Twila Cardona APRN PCP - General Family Medicine 11/21/20 Rodríguez Carrasquillo DO Gastroenterology 10/17/15
--- OUTSIDE RECORDS SUMMARY | 2024-11-14 00:41 | XMS_ITS | Referral Summary ---
Author Organization [facility] Address [facility] [place] [address] Care Team Providers Care Supervisor Laboratory Animal Facility Name Role Phone Bteina Orourke MD Unavailable [phone] Jorge Shaver NP Primary Care Provider [phone] Allergies Active Allergy Reactions Criticality Noted Date Comments Mushroom Rash Medium 01/05/2019 [place] Urticaria Medium 02/21/2019 Medications amLODIPine (NORVASC) 5 mg tabletIndicatio ns:hypertension Take 1 tablet (5 mg total) by mouth plastic boat buffer before breakfast 2 Active atorvastatin (LIPITOR) 80 mg tabletIndicatio ns:hyperlipidem ia Take 1 tablet (80 mg total) by mouth nightly 2 Active biotin 10 mg tablet Take 1 tablet (10 mg total) by mouth plastic boat buffer before breakfast Active carvediloL (COREG) 12.5 mg tabletIndicatio ns:hypertension Take 1 tablet (12.5 mg total) by mouth 2 (two) times a day with meals 2 Active folic acid (FOLVITE) 1 mg tabletIndicatio ns:Folate Deficiency Take 1 tablet (1 mg total) by mouth plastic boat buffer before breakfast Active losartan (COZAAR) 100 mg tabletIndicatio ns:hypertension Take 1 tablet (100 mg total) by mouth plastic boat buffer before breakfast 2 Active PARoxetine (PAXIL) 40 mg tabletIndicatio ns:Anxiety with Depression Take 1 tablet (40 mg total) by mouth every morning 2 Active PARoxetine (PAXIL) 10 mg tabletIndicatio ns:Anxiety with Depression Take 1 tablet (10 mg total) by mouth every morning 2 Active vitamins A,C,E-zinc-katie er (PreserVision AREDS) [phone],[id number] uwrz-bg-[id number] capsuleIndicati ons:Mineral Deficiency Prevention,Ana min Deficiency Prevention Take 2 capsules by mouth plastic boat buffer before breakfast Active hugh/D3/mag11/zi nc/copy chief/noel/bor (CALTRATE 600-D PLUS MINERALS ORAL) Take 1 tablet by mouth plastic boat buffer before breakfast Active traZODone (DESYREL) 50 mg tabletIndicatio ns:insomnia associated with depression Take 2 tablets (100 mg total) by mouth nightly 3 Active triamcinolone (KENALOG) 0.1 % cream Apply 1 g topically as needed for irritation or rash 3 Active vitamin E 200 unit capsuleIndicati ons:health Take 180 Units by mouth plastic boat buffer before breakfast Active ferrous sulfate 325 mg (65 mg of elemental iron) tabletIndicatio ns:Iron Deficiency Anemia Take 1 tablet (325 mg total) by mouth daily with breakfast Active oxyCODONE (ROXICODONE) 5 mg immediate release tabletIndicatio ns:Pain Take 1 tablet (5 mg total) by mouth every 4 (four) hours as needed for pain 10 tablet 3 Active docusate sodium (DOK) 100 mg tabletIndicatio ns:constipation Take 1 tablet (100 mg total) by mouth 2 (two) times a day as needed for constipation 20 tablet 3 Active amoxicillin 500 mg capsule Take 1 tablet/capsule (500 mg total) by mouth 4 (four) times a day 3 Active acetaminophen (TYLENOL) 500 mg tablet Take 2 tablets (1,000 mg total) by mouth every 6 (six) hours as needed for pain 40 tablet 3 Active ibuprofen (ADVIL,MOTRIN) 600 mg tablet Take 1 tablet (600 mg total) by mouth every 6 (six) hours as needed for pain for up to 20 doses 20 tablet 3 Active Active Problems Problem Noted Date Diagnosed Date Urge urinary incontinence 03/03/2023 OAB (overactive bladder) 03/03/2023 Urinary incontinence 07/13/2022 Full incontinence of feces 07/13/2022 Social History Tobacco Use Types Packs/Day Years Used Date Smoking Tobacco: Former Cigarettes 0.8 15 1 993 - 2007 Smokeless Tobacco: Never Tobacco Cessation:Counseling Given: Not Answered AUDIT-C Answer Date Recorded Q1: How often do you have a drink containing alcohol? Never 04/15/2023 Q2: How many drinks containi ng alcohol do you have on a typical day when you are drinking? Patient does not drink Q3: How often do you have si x or more drinks on one occasion? Never 04/15/2023 Personal Safety Answer Date Recorded Have you ever been in or are you currently in a harmful physical or emotional relationship or is someone making you feel afraid or unsafe? Denies 04/28/2023 Comments No Sex and Gender Information Value Date Recorded Sex Assigned at Not on file Legal Sex Female 10:35 AM CDT Gender Identity Female 12/21/2022 1:04 PM CDT Sexual Orientation Straight 12/21/2022 1: 04 PM CDT Last Filed Vital Signs Vital Sign Reading Time Taken Comments Blood Pressure 140/73 04/29/2023 8:41 AM CDT Pulse 79 04/29/2023 8:41 AM CDT Temperature 36.7 C (98.1 F) 04/29/2023 8:41 AM CDT Respiratory Rate 14 04/29/2023 8:41 AM CDT Oxygen Saturation 100% 04/29/2023 8:41 AM CDT Inhaled Oxygen Concentration - - Weight 106.2 kg (234 lb 3.2 oz) 023 12:55 PM CDT Height 167.6 cm (5' 6 ) 04/28/2023 12:5 5 PM CDT Body Mass Index 37.8 04/28/2023 12:55 PM CDT Plan of Treatment Not on file Medical Devices Implanted Type Area Tanning Consultant Device Identifier Shelf Expiration Date Model / Serial / Lot [employer] Interstim 28cm Quadripolar Mri Assistant Paralegal Neurostimulator [id number] - [id number] - [id number] Implanted:Qty: 1 on 04/14/2023 by Haile Briceño MD at [facility] Neurostimulator N/A: Back [employer] 06/09/2024 [id number] / [id number] / [id number] [employer] Interstim 100cm Percutaneous Electrode Insulated Kit [id number] - [id number] - [id number] Implanted:Qty: 1 on 04/14/2023 by Haile Briceño MD at [facility] Neurostimulator N/A: Back [employer] 01/08/2025 [id number] / [id number] / [id number] [employer] Generator Neurostimulator Bowel Bladder Recharge Free Interstim [id number] - [id number] - [id number] Implanted:Qty: 1 on 04/28/2023 by Haile Briceño MD at [facility] Other - see comments N/A: Back [employer] 07/03/2024 [id number] / [id number] / Description:Implant pause pe rformed Right Knee Replacement Right: Knee Dustin Right Femur Right: Femur Insurance MEDICARE [place] MEDICARE [facility] Address: [facility] [address] [place] [address] IDPA Advance Directives For more information, please contact: [phone] * Full Code (Latest Code Status on File) Date Activated Date Inactivated Comments 04/28/2023 4:04 PM 04/29/2023 2:49 PM Care Teams Supervisor Laboratory Animal Facility Relationship Specialty Start Date End Date Jorge Shaver NP [address] [place] [address] PCP - General Nurse Practitioner 04/01/23 Betina Orourke MD [phone] [place] [address] Surgeon Colon and Rectal Surgery 07/09/22
--- OUTSIDE RECORDS SUMMARY | 2024-11-14 00:41 | XMS_ITS | Patient Health Summary ---
Author Organization [facility] Address [address] [facility] [place] [address] Care Team Providers Care Compliance Engineer Products Name Role Phone Sultana Smith RN Unavailable Unavailable Keshawn Stone DO Primary Care Provider Jerzy Ramírez MD Unavailable [phone] Note from [facility],non-owned Affiliates and Associated Physician Practices is amultiple site organization consisting of ambulatory clinics and hospital sitesin [place], [place], [place] and [place]. This disclosure is being madepursuant to the Care Everywhere program and may not contain all information available regarding this patient. Last updated 18.[facility] Allergies * Mushroom Extract Complex(Rash) -Medium Criticality * Combined Locks(Urticaria) -Medium Criticality Medications * Be aware that medications may not be up to date on this document. Alwaysverify current medications with the patient. * levothyroxine (SYNTHROID) 112 MCG tablet Take 1 (one) tablet by mouth daily before breakfast * carvedilol (COREG) 12.5 MG tablet Take 1 (one) tablet by mouth 2 times daily with morning and evening meal * atorvastatin (LIPITOR) 80 MG tablet Take 1 (one) tablet by mouth at bedtime * PARoxetine (PAXIL) 40 MG tablet Take 1 (one) tablet by mouth once daily * traZODone (DESYREL) 50 MG tablet Take 1 (one) tablet by mouth at bedtime * folic acid (FOLVITE) 1 MG tablet Take 1 (one) tablet by mouth once daily * losartan (COZAAR) 100 MG tablet(Started 03/29/2019) Take 1 tablet by mouth once daily * Multiple Vitamins-Minerals (ICAPS AREDS 2 PO) * Biotin 56016 MCG TABS Take 1 (one) tablet by mouth once daily * ferrous sulfate 325 (65 FE) MG tablet(Started 07/07/2019) Take 1 tablet by mouth once daily * amLODIPine (NORVASC) 5 MG tablet(Started 12/27/2020) * traMADol (Ultram) 50 MG tablet(Started 11/07/2021) Active Problems Problem Noted Date Diagnosed Date 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 S/P complete hysterectomy 07/06/2019 Morbid obesity 03/27/2019 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 Atypical squamous cells of u ndetermined significance on cytologic smear of cervix (ASC-US) 11/09/2017 Anogenital HPV infection Cancer of endocervical canal Social History Tobacco Use Types Packs/Day Years [...] Comments Blood Pressure 106/82 10/07/2022 1:58 PM THERAPEUTIC SUPPORT STAFF Pulse 83 05/20/2021 1:15 PM CDT Temperature 36.7 C (98 F) 05/20/2021 1:15 PM CDT Respiratory Rate 18 08/11/2019 12:1 8 PM THERAPEUTIC SUPPORT STAFF Oxygen Saturation 93% 08/11/2019 12: 18 PM THERAPEUTIC SUPPORT STAFF Inhaled Oxygen Concentration - - Weight 103.2 kg (227 lb 9.6 oz) 10/07/2022 1:58 PM THERAPEUTIC SUPPORT STAFF Height 167.6 cm (5' 6 ) 10/07/2022 1:58 PM THERAPEUTIC SUPPORT STAFF Body Mass Index 36.74 10/07/2022 1:58 PM THERAPEUTIC SUPPORT STAFF Procedures * PAP IMAGE-GUIDED(Performed 10/07/2022) Performed for Endocervical adenocarcinoma (HCC) * PAP IMAGE-GUIDED W HPV(Performed 10/08/2021) Performed for Endocervical adenocarcinoma (HCC) * HPV DETECTION HIGH RISK KARMEN(Performed 10/08/2021) Performed for Endocervical adenocarcinoma (HCC) * PAP IMAGE-GUIDED W HPV(Performed 08/07/2020) Performed for Endocervical adenocarcinoma (HCC) * HPV DETECTION HIGH RISK KARMEN(Performed 08/07/2020) Performed for Endocervical adenocarcinoma (HCC) * VITAMIN B1(Performed 04/12/2020) * VITAMIN D 25-HYDROXY(Performed 04/12/2020) * VITAMIN B12(Performed 04/12/2020) * CBC W/O DIFFERENTIAL(Performed 04/12/2020) * COMPREHENSIVE METABOLIC PANEL(Performed 04/12/2020) * VITAMIN D 25-HYDROXY(Performed 10/20/2019) Performed for Bariatric surgery status, Morbid obesity (HCC), BMI 29.0- 29.9,adult, Vitamin D deficiency, Vitamin deficiency * VITAMIN B12(Performed 10/20/2019) Performed for Bariatric surgery status, Morbid obesity (HCC), BMI 29.0- 29.9,adult, Vitamin D deficiency, Vitamin deficiency * VITAMIN B1(Performed 10/20/2019) Performed for Bariatric surgery status, Morbid obesity (HCC), BMI 29.0- 29.9,adult, Vitamin D deficiency, Vitamin deficiency * CARDIAC RHYTHM STRIP ORDER(Performed 08/14/2019) * PATHOLOGY TISSUE EXAM (STL)(Performed 08/10/2019) Performed for Diagnosis unknown * CYTOLOGY NON-CORK WIRER PANEL (STL)(Performed 08/10/2019) Performed for Diagnosis unknown * ENDOTRACHEAL TUBE NOTE(Performed 08/10/2019) * ROBOTIC ASSISTED HYSTERECTOMY TOTAL(Performed 08/10/2019) Performed for Diagnosis unknown * ANTIBODY SCREEN(Performed 08/10/2019) * TYPE + SCREEN PANEL(Performed 08/10/2019) * CBC W AUTO DIFFERENTIAL(Performed 08/02/2019) * COMPREHENSIVE METABOLIC PANEL(Performed 08/02/2019) * CARDIAC RHYTHM STRIP ORDER(Performed 07/10/2019) * PHOSPHORUS BLOOD(Performed 07/07/2019) Performed for S/P complete hysterectomy * MAGNESIUM BLOOD(Performed 07/07/2019) Performed for S/P complete hysterectomy * COMPREHENSIVE METABOLIC PANEL(Performed 07/07/2019) Performed for S/P complete hysterectomy * CBC W AUTO DIFFERENTIAL(Performed 07/07/2019) Performed for S/P complete hysterectomy * PT EVAL AND TREAT(Performed 07/06/2019) Performed for S/P complete hysterectomy * OT EVAL AND TREAT(Performed 07/06/2019) Performed for S/P complete hysterectomy * SLIDE PREP HISTOLOGY(Performed 07/06/2019) * PATHOLOGY TISSUE EXAM (STL)(Performed 07/06/2019) Performed for Diagnosis unknown * ENDOTRACHEAL TUBE NOTE(Performed 07/06/2019) * BLOOD TYPE VERIFICATION(Performed 07/06/2019) * TYPE + SCREEN PANEL(Performed 07/06/2019) * ROBOTIC ASSISTED HYSTERECTOMY TOTAL(Performed 07/06/2019) Performed for Diagnosis unknown * LAB RESULTS ORDER(Performed 07/03/2019) * CANCER ANTIGEN (CA)125 BLOOD(Performed 06/30/2019) * COMPREHENSIVE METABOLIC PANEL(Performed 06/30/2019) * CBC W AUTO DIFFERENTIAL(Performed 06/30/2019) Performed for Endometrial cancer (HCC) * PAP IMAGE-GUIDED W HPV(Performed 06/19/2019) Performed for Endometrial cancer (HCC) * HPV GENOTYPES 16,18/45(Performed 06/19/2019) Performed for Endometrial cancer (HCC) * HPV DETECTION HIGH RISK KARMEN(Performed 06/19/2019) Performed for Endometrial cancer (HCC) * GLUCOSE - POINT OF CARE(Performed 03/28/2019) * FL UGI SERIES(Performed 03/28/2019) Performed for S/P laparoscopic sleeve gastrectomy * VITAMIN D 25-HYDROXY(Performed 03/28/2019) * CBC W AUTO DIFFERENTIAL(Performed 03/28/2019) * BASIC METABOLIC PANEL (CALCIUM TOTAL)(Performed 03/28/2019) * GLUCOSE - POINT OF CARE(Performed 03/27/2019) * PATHOLOGY TISSUE EXAM (STL)(Performed 03/27/2019) Performed for Diagnosis unknown * LAPAROSCOPIC GASTRECTOMY (LONGITUDINAL/SLEEVE)(Performed 03/27/2019) * BASIC METABOLIC PANEL (CALCIUM TOTAL)(Performed 03/27/2019) Performed for Preoperative examination * VITAMIN B12(Performed 02/21/2019) Performed for Preoperative examination * VITAMIN B1(Performed 02/21/2019) Performed for Preoperative examination * COMPREHENSIVE METABOLIC PANEL(Performed 02/21/2019) Performed for Preoperative examination * CBC W AUTO DIFFERENTIAL(Performed 02/21/2019) Performed for Preoperative examination * EKG 12-LEAD(Performed 02/21/2019) Performed for Preoperative examination * FL UGI SERIES(Performed 01/19/2019) Performed for Morbid obesity (HCC), BMI 39.0-39.9,adult * CARDIAC RHYTHM STRIP ORDER(Performed 12/01/2017) * PATHOLOGY TISSUE EXAM (STL)(Performed 11/29/2017) Performed for Diagnosis unknown * LARYNGEAL MASK AIRWAY(Performed 11/29/2017) * COLPOSCOPY WITH BIOPSY(Performed 11/29/2017) Performed for Diagnosis unknown * PATHOLOGY/GENETICS HISTORICAL-ONBASE(Performed 11/29/2017) * PAP IMAGE-GUIDED W HPV(Performed 11/09/2017) * PATHOLOGY/GENETICS HISTORICAL-ONBASE(Performed 11/09/2017) Results * PAP IMAGE-GUIDED (10/07/2022 2:19 PM THERAPEUTIC SUPPORT STAFF) Case Report Gynecologic Cytology Report Case: [id number] Authorizing Provider: Jerzy Ramírez MD Collected: 10/07/2022 02:19 PM Ordering Location: [facility] Received: 10/08/2022 11:51 AM [facility] Screen: Michael Herring Specimen: THINPREP - IMAGE GUIDED, Vagina 10/14/2022 11:40 AM THERAPEUTIC SUPPORT STAFF [facility] LMP postmenopause 10/14/2022 11:40 AM THERAPEUTIC SUPPORT STAFF [facility] Menstrual Status Postmenopausal 09/21 11:40 AM THERAPEUTIC SUPPORT STAFF [facility] Specimen Adequacy Satisfactory for evaluation. 10/14/2022 11:40 AM [facility] Categorization Negative for intraepithelial lesion or malignancy. 10/14/2022 11:40 AM [facility] Interpretation CORK WIRER Negative for intraepithelial lesion or malignancy. 10/14/2022 11:40 AM [facility] Pap Footnote The Pap Smear is a screening test. False positive and false negative results occur. Negative results do not preclude abnormalities, thus clinical correlation is required. This specimen was evaluated by the [employer] Imaging System along with an additional manual rescreening by a infectious disease physician and/or pathologist. 10/14/2022 11:40 AM [facility] Embedded Images 11:40 AM [facility] Pathology/Cytolo gy ENTIRE VAGINA / Unknown 10/07/2022 2:19 PM THERAPEUTIC SUPPORT STAFF 10/08/2022 11:51 AM THERAPEUTIC SUPPORT STAFF Jerzy Ramírez MD LAB - PATHOLOGY/CYTO LOGY ORDERABLES [facility] [address] [phone] * HPV DETECTION HIGH RISK KARMEN (10/08/2021 11:28 AM THERAPEUTIC SUPPORT STAFF) Only the most recent of3 resultswithin the time period is included. High Risk Human Papilloma Result Not detected Not detected 10/15/2021 7:25 AM [facility] High Risk Human Papilloma Interp 10/15/2021 7:25 AM [facility] Comment:High Risk Human Montez lloma Virus was Not Detected. Pathology/Cytolo gy MISCELLANEOUS SAMPLES / Unknown 10/08/2021 11:28 AM THERAPEUTIC SUPPORT STAFF 10/09/2021 12:44 PM THERAPEUTIC SUPPORT STAFF Narrative [facility] - 10/15/2021 7:25 AM THERAPEUTIC SUPPORT STAFF Nucleic acid isolated from the specimen was analyzed with a nucleic acid amplification test (FDA approved Gen-Probe HPV Assay) to detect high risk human papilloma virus (Types: 16, 18, 31, 33, 35, 39, 45, 51, 52, 56, 58, 59, 66, and 68). The reference range is Not Detected . Comment: These test results should not be used as the sole basis for clinical assessment and treatment of patients. These results should always be correlated with other available data (cytology, histology, and clinical information). Erwin Azevedo MD LAB - MICROBIOLOGY ORDERABLES [facility] [address] [phone] * PAP IMAGE-GUIDED W HPV (10/08/2021 11:28 AM THERAPEUTIC SUPPORT STAFF) Only the most recent of4 resultswithin the time period is included. Case Report Gynecologic Cytology Report Case: [id number] Authorizing Provider: Erwin Azevedo MD Collected: 10/08/2021 11:28 AM Ordering Location: [facility] Received: 10/09/2021 12:44 PM [facility]necology [facility] First Screen: João Betancourt Specimen: THINPREP - IMAGE GUIDED, Cervix/Endocervix 10/15/2021 8:13 AM THERAPEUTIC SUPPORT STAFF [facility] LMP postemenopausal 8:13 AM THERAPEUTIC SUPPORT STAFF [facility] Menstrual Status Postmenopausal 09/21 8:13 AM THERAPEUTIC SUPPORT STAFF [facility] Specimen Adequacy Satisfactory for evaluation. 10/15/2021 8:13 AM THERAPEUTIC SUPPORT STAFF [facility] Categorization Negative for intraepithelial lesion or malignancy. 10/15/2021 8:13 AM THERAPEUTIC SUPPORT STAFF [facility] Interpretation CORK WIRER Negative for intraepithelial lesion or malignancy. 10/15/2021 8:13 AM THERAPEUTIC SUPPORT STAFF [facility] Pap Footnote The Pap Smear is a screening test. False positive and false negative results occur. Negative results do not preclude abnormalities, thus clinical correlation is required. This specimen was evaluated by the [employer] Imaging System along with an additional manual rescreening by a infectious disease physician and/or pathologist. 10/15/2021 8:13 AM THERAPEUTIC SUPPORT STAFF [facility] Embedded Images 8:13 AM THERAPEUTIC SUPPORT STAFF [facility] Pathology/Cytolo gy MISCELLANEOUS SAMPLES / Unknown 10/08/2021 11:28 AM THERAPEUTIC SUPPORT STAFF 10/09/2021 12:44 PM THERAPEUTIC SUPPORT STAFF Erwin Azevedo MD LAB - PATHOLOGY/CYT OLOGY ORDERABLES [facility] [address] [phone] * (ABNORMAL) VITAMIN B1 (04/12/2020 11:15 AM CDT) Only the most recent of3 resultswithin the time period is included. Vitamin B1 Whole Blood 222(H) 78 - 185 nmol/L [facility] Comment: Vitamin supplementation within 24 hours prior to blood draw may affect the accuracy of results. This test was developed and its analytical performance characteristics have been determined by [employer]. It has not been cleared or approved by the FDA. This assay has been validated pursuant to the CLIA regulations and is used for clinical purposes. REPORT COMMENT: FASTING:YES Test Performed at: [facility] [address] [address] KRISHNA AGUILA MD,PHD 04/12/2020 11:1 5 AM CDT 04/12/2020 11:16 AM CDT Phyllis Irving APRN-MAIL PROCESSING EQUIPMENT MECHANIC LAB - CHEMIS TRY ORDERABLES [facility] [address] [place] [address] * VITAMIN D 25-HYDROXY (04/12/2020 11:15 AM CDT) Only the most recent of3 resultswithin the time period is included. Vitamin D, 25 Hydroxy 41 30 - 100 ng/mL [facility] Comment: Vitamin D Status 25-OH Vitamin D: Deficiency: <20 ng/mL Insufficiency: 20 - 29 ng/mL Optimal: > or = 30 ng/mL For 25-OH Vitamin D testing on patients on D2-supplementation and patients for whom quantitation of D2 and D3 fractions is required, the QuestAssureD(TM) 25-OH VIT D, (D2,D3), LC/MS/MS is recommended: order code 04488 (patients >2yrs). See Note 1 Note 1 For additional information, please refer to http://education.[employer]/faq/ZRR496 (This link is being provided for informational/ educational purposes only.) Test Performed at: [facility] [address] [place] [address] MARY VASQUEZ DO,MPH 04/12/2020 11:1 5 AM CDT 04/12/2020 11:16 AM CDT Phyllis Irving APRN-YULIANA LAB - CHEMIS TRY ORDERABLES Performing Organization Address [facility] de Phone Number [facility] [address] [place] [address] * CBC W/O DIFFERENTIAL (04/12/2020 11:15 AM CDT) White Blood Cell Count 4.7 3.8 - 10.8 Thousand/u L [facility] RBC 4.57 3.80 - 5.10 Million/uL [facility] Hemoglobin 14.3 11.7 - 15.5 g/dL [facility] Hematocrit 42.9 35.0 - 45.0 % [facility] MCV 93.9 80.0 - 100.0 fL [facility] MCH 31.3 27.0 - 33.0 pg [facility] MCHC 33.3 32.0 - 36.0 g/dL [facility] RDW 12.5 11.0 - 15.0 % [facility] Platelet Count 160 140 - 400 Thousand/u L [facility] MPV 12.3 7.5 - 12.5 fL [facility] Comment: Test Performed at: [email or web address] [address] MARY VASQUEZ DO,MPH 04/12/2020 11:1 5 AM CDT 04/12/2020 11:16 AM CDT Phyllis Irving APRN-YULIANA LAB - HEMATO LOGY ORDERABLES Performing Organization Address [facility] Co de Phone Number [facility] [address] [place] [address] * (ABNORMAL) COMPREHENSIVE METABOLIC PANEL (04/12/2020 11:15 AM CDT) Only the most recent of5 resultswithin the time period is included. Glucose 98 65 - 99 mg/dL [facility] Comment: Fasting reference interval BUN 15 7 - 25 mg/dL [facility] Creatinine 0.73 0.50 - 0.99 mg/dL [facility] Comment: For patients >49 years of age, the reference limit for Creatinine is approximately 13% higher for people identified as -Algerian. eGFR by MDRD 85 > OR = [...] 29 U/L [facility] Comment: Test Performed at: [email or web address] [address] MARY VASQUEZ DO,MPH 04/12/2020 11:1 5 AM CDT 04/12/2020 11:16 AM CDT Phyllis Irving [employer]-MAIL PROCESSING EQUIPMENT MECHANIC LAB - CHEMIS TRY ORDERABLES [facility] [address] [place] [address] * (ABNORMAL) VITAMIN B12 (04/12/2020 11:15 AM CDT) Only the most recent of3 resultswithin the time period is included. Vitamin B12 1230(H) 200 - 1100 pg/mL [facility] Comment: Test Performed at: [email or web address] [place] [address] MARY VASQUEZ DO,MPH 04/12/2020 11:1 5 AM CDT 04/12/2020 11:16 AM CDT Phyllis Irving [employer]-MAIL PROCESSING EQUIPMENT MECHANIC LAB - CHEMIS TRY ORDERABLES [facility] [address] [place] [address] * CARDIAC RHYTHM STRIP ORDER (08/14/2019 6:16 PM THERAPEUTIC SUPPORT STAFF) Only the most recent of3 resultswithin the time period is included. Narrative 08/14/2019 6:16 PM THERAPEUTIC SUPPORT STAFF Ordered by an unspecified provider. Scanned Document CARDIAC SERVICES ORD ERABLES * GROSS + MICRO EXAM (STL) (08/10/2019 3:42 PM THERAPEUTIC SUPPORT STAFF) Only the most recent of4 resultswithin the time period is included. Case Report Surgical Pathology Report Case: [id number] Authorizing Provider: Erwin Azevedo MD Collected: 08/10/2019 03:42 PM Ordering Location: [facility] Received: 08/11/2019 07:55 AM Pathologist: Shanti Viera MD Specimens: A) - Pelvic Lymph Nodes, pelvic lymph node B) - Lymph Node, para aortic lymph node 08/15/2019 12:11 PM THERAPEUTIC SUPPORT STAFF [facility] Final Diagnosis Lymph nodes, pelvic, biopsy (A): - No pathologic diagnosis (11 nodes) Lymph node, paraaortic, biopsy (B): - No pathologic diagnosis (1 node) 08/15/2019 12:11 PM THERAPEUTIC SUPPORT STAFF [facility] Clinical History 64 year old woman with history of endocervical adenocarcinoma, FIGO stage 1B1 ([id number], 07/06/2019). 08/15/2019 12:11 PM THERAPEUTIC SUPPORT STAFF [facility] Gross Description A. Received in a container of formalin labeled Landfried, Rosetta K., and pelvic lymph node is a 9 x 7 x 1.8 cm aggregate of yellow-brown fatty tissue. The specimen is palpated and many lymph nodes are found ranging from 0.2 up to 1.8 cm. Sectioning displays a dull purple-brown cut surface. The lymph nodes are submitted entirely as follows: A1 - one lymph node bisected A2 - many possible lymph nodes A3 - one lymph node bisected A4 - one lymph node bisected A5 - one lymph node serially sectioned A6 - one lymph node B. Received in a container of formalin labeled Landfried, Rosetta K., and periaortic lymph node is a 6 x 3.7 x 0.8 cm aggregate of fragmented yellow-brown fatty tissue. There is one possible partially disrupted purple-brown lymph node measuring 2.2 x 0.9 x 0.5 cm. Sectioning displays a purple-brown firm cut surface. Definitive lymphoid tissue is difficult to grossly appreciated. The specimen is submitted entirely as follows: B1 - one possible lymph node B2-B3 - remaining fat DJF/ds 08/15/2019 12:[address] [facility] Microscopic Description Microscopic examination substantiates the above diagnoses. 08/15/2019 12:[address] [facility] Disclaimer All histochemical and/or immunohistochemical results are interpreted with controls that demonstrate appropriate staining reactions before reporting results. Note on use of immunocytochemistry reagents: This test was developed and its performance characteristic determined by [facility], Department of Laboratory Medicine. It has not been cleared or approved by the U.S. Food and Drug Administration (FDA). The FDA has determined that such clearance or approval is not necessary. The test is used for clinical purpose. It should not be regarded as investigational or for research. This laboratory is certified to perform high complexity testing. 08/15/2019 12:[address] [facility] Embedded Images 08/15/2019 12:[address] [facility] Pathology/Cytology PELVIC LYMPH NODES SAMPLING / Unknown 08/10/2019 3:42 PM THERAPEUTIC SUPPORT STAFF 08/11/2019 7:55 AM THERAPEUTIC SUPPORT STAFF Comment:Pre-op diagnosis: Diagnosis unknown [R69] Miscellaneous samples (specimen) ENTIRE LYMPH NODE / Unknown 08/10/2019 3:46 PM THERAPEUTIC SUPPORT STAFF 08/11/2019 7:55 AM THERAPEUTIC SUPPORT STAFF Comment:Pre-op diagnosis: Diagnosis unknown [R69] Erwin Azevedo MD LAB - PATHOLOGY/CYT OLOGY ORDERABLES [facility] [address] [place] [address] * CYTOLOGY NON-CORK WIRER PANEL (STL) (08/10/2019 2:07 PM THERAPEUTIC SUPPORT STAFF) Case Report Cytology Non [place] Report Case: [id number] Authorizing Provider: Erwin Azevedo MD Collected: 08/10/2019 02:07 PM Ordering Location: [facility] Received: 08/11/2019 07:58 AM Pathologist: Wendie Andrews MD Specimen: Pelvic Washings 08/16/2019 10:[address] [facility] Final Diagnosis Pelvic wash cytology: -- Negative for malignancy. 08/16/2019 10:[address] [facility] Clinical History 64-year-old female with history of cervical adenocarcinoma 08/16/2019 10:[address] [facility] Gross Description 27 mL clear fluid 08/16/2019 10:[address] [facility] Microscopic Description The cytospin shows scattered mesothelial cells, some with reactive changes, macrophages and few inflammatory cells. The cell block is hypocellular. 08/16/2019 10:[address] [facility] Disclaimer All histochemical and/or immunohistochemical results are interpreted with controls that demonstrate appropriate staining reactions before reporting results. Note on use of immunocytochemistry reagents: This test was developed and its performance characteristic determined by [facility], Department of Laboratory Medicine. It has not been cleared or approved by the U.S. Food and Drug Administration (FDA). The FDA has determined that such clearance or approval is not necessary. The test is used for clinical purpose. It should not be regarded as investigational or for research. This laboratory is certified to perform high complexity testing. 08/16/2019 10:[address] [facility] Embedded Images 08/16/2019 10:[address] [facility] Pathology/Cytolo gy SPECIMEN OBTAINED BY PERITONEAL LAVAGE / Unknown 08/10/2019 2:07 PM THERAPEUTIC SUPPORT STAFF 08/11/2019 7:58 AM THERAPEUTIC SUPPORT STAFF Comment:Pre-op diagnosis: Diagnosis unknown [R69] Erwin Azevedo MD LAB - PATHOLOGY/CYT OLOGY ORDERABLES Performing Organization Address City/[facility]/ZIP Co de Phone Number [facility] [address] [place] [address] * ETT LINE PERFORMABLE (08/10/2019 1:11 PM THERAPEUTIC SUPPORT STAFF) Narrative Brad Hunt APRN-CRNA - 08/10/2019 1:11 PM THERAPEUTIC SUPPORT STAFF Brad Hunt APRN-CNP 08/10/2019 1:15 PM Endotracheal Tube Placement: Patient Location: OR. Intubation Event Date/Time: 08/10/2019 12:52 PM Procedure: intubation (19186). Procedure Section: Sedation: under general anesthesia. Indications for Airway Management: anesthesia Induction: standard IV Patient Position: sniffing Mask Ventilation: easy with oral airway. Blade Type: Francisco Blade Size: 4 Laryngoscopy View: grade 1 (full cords) Tube: endotracheal tube Placement: oral Tube type: cuff - inflated Tube Size (MM): 7 Depth of Insertion (CM): 21 Measured From: lips Cuff Inflated With: air Number of Attempts: 1. Placement Verified By: direct visualization, bilateral breath sounds and CO2 monitor Tube secured with: adhesive tape. Difficult Airway? No. Procedure Start Time: 08/10/2019 12:52 PM. Staff Section Anesthesia Provider: Brad Hunt APRN-CNP, Performed the procedure Additional Comments: Mouth and teeth in preoperative condition. Murray Reyes DO GENERAL ANESTHESIA O RDERABLES * TYPE + SCREEN PANEL (08/10/2019 11:26 AM THERAPEUTIC SUPPORT STAFF) Only the most recent of2 resultswithin the time period is included. ABO A 08/10/2019 12:13 PM THERAPEUTIC SUPPORT STAFF [facility] Rh Type Negative 08/10/2019 12:[address] [facility] Comment:History checked. Blood Bank BLOOD SPECIMEN / Unknown Venipuncture / Unknown 08/10/2019 11:26 AM THERAPEUTIC SUPPORT STAFF 08/10/2019 11:31 AM THERAPEUTIC SUPPORT STAFF Erwin Azevedo MD LAB - BLOOD BANK OR DERABLES Performing Organization Address [facility]/ZIP Co de Phone Number [facility] BLOOD BANK LAB [address] [place], [place] [address] [place] [address] * ANTIBODY SCREEN (08/10/2019 11:26 AM THERAPEUTIC SUPPORT STAFF) Pathologist [facility] Antibody Screen Negative 08/10/2019 12:02 PM THERAPEUTIC SUPPORT STAFF [facility] BLOOD BANK LAB Blood Bank BLOOD SPECIMEN / Unknown Venipuncture / Unknown 08/10/2019 11:26 AM THERAPEUTIC SUPPORT STAFF 08/10/2019 11:31 AM THERAPEUTIC SUPPORT STAFF Erwin Azevedo MD LAB - BLOOD BANK OR DERABLES [facility] BLOOD BANK LAB [address] [phone] * (ABNORMAL) CBC WITH DIFFERENTIAL (08/02/2019 9:16 AM THERAPEUTIC SUPPORT STAFF) Only the most recent of5 resultswithin the time period is included. Pathologist [facility] White Blood Cell Count 6.2 3.8 - 10.8 Thousand/ uL [facility] RBC 4.63 3.80 - 5.10 Million/u L [facility] Hemoglobin 14.1 11.7 - 15.5 g/dL [facility] Hematocrit 43.2 35.0 - 45.0 % [facility] MCV 93.3 80.0 - 100.0 fL [facility] MCH 30.5 27.0 - 33.0 pg [facility] MCHC 32.6 32.0 - 36.0 g/dL [facility] RDW 12.6 11.0 - 15.0 % [facility] Platelet Count 170 140 - 400 Thousand/ uL [facility] MPV 13.5(H) 7.5 - 12.5 fL [facility] Neutrophil Absolute 3317 1500 - 7800 cells/uL [facility] Absolute Bands [facility] Metamyelocytes Absolute [facility] Myelocytes Absolute [facility] Absolute Prolymphocytes [facility] Lymphocytes Absolute 1798 850 - 3900 cells/uL [facility] Absolute Monocytes 577 200 - 950 cells/uL [facility] Eosinophils Absolute 459 15 - 500 cells/uL [facility] Basophils Absolute 50 0 - 200 cells/uL [facility] Absolute Blasts [facility] nRBC Absolute [facility] Granulocytes % 53.5 % [facility] Band Neutrophil [facility] Metamyelocytes [facility] Myelocytes [facility] Promyelocytes [facility] Lymphocytes % 29.0 % [facility] Lymphocyte Reactive [facility] Monocytes % 9.3 % [facility] Eosinophils % 7.4 % [facility] Basophils % 0.8 % [facility] Comment: REPORT COMMENT: FASTING:YES Test Performed at: [facility] [address] [address] MARY VASQUEZ DO,MPH [facility] Comments [facility] Comment: REPORT COMMENT: FASTING:YES Test Performed at: [facility] [address] [place] [address] MARY VASQUEZ DO,MPH 08/02/2019 9:16 AM THERAPEUTIC SUPPORT STAFF 08/02/2019 9:17 AM THERAPEUTIC SUPPORT STAFF Erwin Azevedo MD LAB - HEMATOLOGY OR DERABLES Performing Organization Address City/[facility]/ZIP Co de Phone Number [facility] [address] [place] [address] * PHOSPHORUS BLOOD (07/07/2019 3:39 AM CDT) Phosphorus 2.4 2.3 - 4.7 mg/dL 07/07/2019 4:23 AM CDT [facility] Blood BLOOD SPECIMEN / Unknown Lab Venipuncture / Unknown 07/07/2019 3:39 AM CDT 07/07/2019 3:56 AM CDT Latonya Medina MD LAB - CHEMISTRY WADE CASTILLO Performing Organization Address [facility] de Phone Number [facility] [address] [place] [address] * (ABNORMAL) MAGNESIUM BLOOD (07/07/2019 3:39 AM CDT) Magnesium 1.0(LL) 1.6 - 2.6 mg/dL 07/07/2019 4:29 AM CDT [facility] Blood BLOOD SPECIMEN / Unknown Lab Venipuncture / Unknown 07/07/2019 3:39 AM CDT 07/07/2019 3:56 AM CDT Latonya Medina MD LAB - CHEMISTRY WADE CASTILLO Performing Organization Address [facility] Co de Phone Number [facility] [address] [place], [place] [phone] * SLIDE PREP HISTOLOGY (07/06/2019 11:20 AM CDT) Client Specimen ID # 07/17/2019 4:46 PM CDT [facility] Number of Blocks Received 0 07/17/2019 4:46 PM CDT [facility] Number of Slides 1 07/17/2019 4:46 PM CDT [facility] Number of Control Slides 1 07/17/2019 4:46 PM CDT [facility] Pathology/Cytolo gy ENTIRE UTERUS / Unknown 07/06/2019 11:20 AM CDT 07/14/2019 10:26 AM CDT Shanti Viera MD LAB - PATHOLOGY/CYTO LOGY ORDERABLES [facility] [address] [phone] * ETT Placement (07/06/2019 9:35 AM CDT) Narrative Jose M Jensen III, APRN-ECHOCARDIOGRAPHY TECH - 07/06/2019 9:35 AM CDT Jose M Jensen III, APRN-CRNA 07/06/2019 9:35 AM Endotracheal Tube Placement: Patient Location: OR. Procedure: intubation ([id number]). Procedure Section: Sedation: under general anesthesia. Indications for Airway Management: anesthesia Induction: standard IV Patient Position: supine Mask Ventilation: not attempted. Blade Type: Francisco Blade Size: 3 Laryngoscopy View: grade 1 (full cords) Intubation Adjuncts: stylet Tube: endotracheal tube Placement: oral Tube type: cuff - inflated Tube Size (MM): 8 Depth of Insertion (CM): 22 Measured From: lips Cuff Inflated With: air Number of Attempts: 1. Placement Verified By: direct visualization, bilateral breath sounds, chest auscultation and CO2 monitor Tube secured with: adhesive tape. Difficult Airway? No. Staff Section Anesthesia Provider: Jose M Jensen III, APRN-ECHOCARDIOGRAPHY TECH, Performed the procedure Keaton Jeong MD GENERAL ANESTHESIA ORDERABLES * BLOOD TYPE VERIFICATION (07/06/2019 7:33 AM CDT) ABO A 07/06/2019 8:00 AM CDT [facility] BLOOD [facility] Rh Type Negative 07/06/2019 8:00 AM CDT [facility] BLOOD [facility] LAB Blood Bank BLOOD SPECIMEN / Unknown Venipuncture / Unknown 07/06/2019 7:33 AM CDT 07/06/2019 7:39 AM CDT Erwin Azevedo MD LAB - BLOOD BANK OR DERABLES [facility] BLOOD BANK LAB [address] [phone] * LAB RESULTS ORDER (07/03/2019 9:23 AM CDT) Narrative 07/03/2019 9:23 AM CDT Ordered by an unspecified provider. Scanned Document LAB - THERAPEUTIC DR LIM MONITORING ORDERABLES * CANCER ANTIGEN (CA)125 BLOOD (06/30/2019 10:00 AM CDT) Pathologist [facility] CA 125 14 <35 U/mL [facility] Comment: This test was performed using the King Delta Chemiluminescent method. Values obtained from different assay methods cannot be used interchangeably. CA 125 levels, regardless of value, should not be interpreted as absolute evidence of the presence or absence of disease. Test Performed at: [facility] [address] [place] [address] MARY VASQUEZ DO,MPH 06/30/2019 10:0 0 AM CDT 06/30/2019 10:02 AM CDT Erwin Azevedo MD LAB - CHEMISTRY ORD ERABLES [facility] [address] [place] [address] * (ABNORMAL) HPV GENOTYPES 16,18/45 (06/19/2019 10:30 AM CDT) Pathologist [facility] Human papillomavirus Genotype 16 by TMA Not detected Not detected 06/23/2019 3:03 PM CDT [facility] Human papillomavirus Genotype 18/45 by TMA Detected(A) Not detected 06/23/2019 3:03 PM CDT [facility] Pathology/Cytolo gy ENTIRE ENDOCERVIX / Unknown 06/19/2019 10:30 AM CDT 06/20/2019 11:44 AM CDT Narrative [facility] - 06/23/2019 3:03 PM CDT This test detects E6/E7 viral messenger RNA of high-risk HPV types 16, 18, 31, 33, 35, 39, 45, 51, 52, 56, 58, 59, 66, and 68 associated with cervical cancer and its precursor lesions. Cross-reactivity with low risk HPV genotypes 26, 67, 70, and 82 may occur. Sensitivity may be affected by specimen collection methods, stage of infection, and the presence of interfering substances. Results should be interpreted in conjunction with other available laboratory and clinical data. Erwin Azevedo MD LAB - MICROBIOLOGY ORDERABLES Performing Organization Address City/[facility]/ZIP Co de Phone Number [facility] LAB [address] [phone] * (ABNORMAL) GLUCOSE - POINT OF CARE (03/28/2019 12:02 PM CDT) Only the most recent of2 resultswithin the time period is included. Pathologist [facility] Glucose WB/POC 109(H) 70 - 106 mg/dL 03/28/2019 1:47 PM CDT [facility] Specimen Type Arterial/C apillary 03/28/2019 1:47 PM CDT [facility] Blood BLOOD SPECIMEN / Unknown 03/28/2019 12:02 PM CDT 03/28/2019 1:46 PM CDT Mynor Ramirez MD LAB - POINT OF CARE ORDERABLES Performing Organization Address City/[facility]/ZIP Co de Phone Number [facility] [address] [place] [phone] * FL UGI SERIES WO KUB (03/28/2019 8:54 AM CDT) Only the most recent of2 resultswithin the time period is included. Anatomical Region Laterality Modality Abdomen Radiographic Lula ging 03/28/2019 10:0 4 AM CDT Impressions 03/28/2019 10:05 AM CDT No evidence of leak or obstruction. Reading Radiologist: Etta Mckinney MD on 03/28/2019 at 10:05 AM Narrative 03/28/2019 10:05 AM CDT Fluoroscopic upper GI with KUB Indication: Morbid obesity, gastric surgery Findings: Multiple spot radiographs of the gastric remnant were obtained following ingestion of oral contrast media. Multiple tertiary contractions were observed within the esophagus with esophageal stasis. There is no evidence of leak. There is prompt emptying into the small bowel. Total fluoro time is 59 seconds. 8 images were acquired. Procedure Note Etta Mckinney MD - 03/28/2019 Fluoroscopic upper GI with KUB Indication: Morbid obesity, gastric surgery Findings: Multiple spot radiographs of the gastric remnant were obtained following ingestion of oral contrast media. Multiple tertiary contractions were observed within the esophagus with esophageal stasis. There is no evidence of leak. There is prompt emptying into the small bowel. Total fluoro time is 59 seconds. 8 images were acquired. IMPRESSION No evidence of leak or obstruction. Reading Radiologist: Etta Mckinney MD on 03/28/2019 at 10:05 AM Mynor Ramirez MD FLUOROSCOPY ORDERABL ES * (ABNORMAL) BASIC METABOLIC PANEL (CALCIUM TOTAL) (03/28/2019 5:16 AM CDT) Only the most recent of2 resultswithin the time period is included. Glucose 122(H) 74 - 106 mg/dL 03/28/2019 6:16 AM CDT [facility] Sodium 140 136 - 145 mmol/L 03/28/2019 6:16 AM CDT [facility] Potassium 4.1 3.5 - 5.1 mmol/L 03/28/2019 6:16 AM CDT [facility] Chloride 101 98 - 107 mmol/L 03/28/2019 6:16 AM CDT [facility] CO2 31 23 - 31 mmol/L 03/28/2019 6:16 AM CDT [facility] Calcium 8.6 8.4 - 10.2 mg/dL 03/28/2019 6:16 AM CDT [facility] Anion Gap 8 8 - 16 mmol/L 03/28/2019 6:16 AM CDT [facility] BUN 20 9.8 - 20.1 mg/dL 03/28/2019 6:16 AM CDT [facility] Creatinine 0.98 0.55 - 1.02 mg/dL 03/28/2019 6:16 AM CDT [facility] eGFR by MDRD 57(L) >60 mL/min/1.7 3m2 03/28/2019 6:16 AM CDT [facility] eGFR by MDRD >60 >60 mL/min/1.7 3m2 03/28/2019 6:16 AM CDT [facility] Blood BLOOD SPECIMEN / Unknown Venipuncture / Unknown 03/28/2019 5:16 AM CDT 03/28/2019 5:48 AM CDT Narrative [facility] - 03/28/2019 6:16 AM CDT Attention clinician: BUN Reference Range has changed. Mynor Ramirez MD LAB - CHEMISTRY WADE CASTILLO [facility] [address] [place] [address] * EKG 12-LEAD (02/21/2019 8:58 AM CDT) Ventricular Rate 71 BPM [facility] Atrial Rate 71 BPM [facility] P-R Interval 212 ms [facility] QRS Duration ms 90 ms [facility] Q-T Interval ms 446 ms [facility] QTC Calculation (Bezet) 484 ms [facility] Calculated R [place] -19 degrees [facility] Calculated T [place] 31 degrees [facility] Interpretation EKG Sinus rhythm with sinus arrhythmia with 1st degree A-V block Otherwise normal ECG No previous ECGs available Confirmed by SAADIA ESCUDERO MD ([id number]) on 02/22/2019 9:59:49 AM [facility] 02/21/2019 8:58 AM CDT 02/22/2019 9:59 AM CDT Mynor Ramirez MD ECG ORDERABLES [facility] * PATHOLOGY/GENETICS HISTORICAL-ONBASE (11/29/2017) Only the most recent of2 resultswithin the time period is included. 11/29/2017 Historical Provider LAB - CHEMISTRY O RDERABLES [facility] [address] [place], [place] [address] Care Teams Compliance Engineer Products Relationship Specialty Start Date End Date Keshawn Stone DO [address] [place] [address] PCP - General Internal Medicine 02/21/19 Sultana Smith, RN Registered Nurse 11/29/17 Jerzy Ramírez MD [address] [phone] CORK WIRER Oncology 09/03/22
--- OUTSIDE RECORDS SUMMARY | 2024-11-14 00:41 | XMS_ITS | Encounter Summary ---
Author Organization [facility] Address [address] [facility] [place] [address] Care Team Providers Care Reel Man Name Role Phone Sultana Smith RN Unavailable Unavailable Keshawn Stone DO Primary Care Provider [phone] Jerzy Ramírez MD Unavailable [phone] Reason for Visit * Reason Onset Date Comments Reschedule Appointment 08/03/2022 Encounter Details Date Type Department Care Team (Late st Contact Info) Description 08/03/2022 Telephone [facility] [address] [place] [address] Jerzy Ramírez MD [address] [facility] [address] [place] [address] Reschedule Appointment Social History Tobacco Use Types Packs/Day Years Used Date Smoking Tobacco: Former Cigarettes Q uit: 09/20/2007 Smokeless Tobacco: Never Alcohol Use Standard Drinks/Week [...] Orientation Straight 05/13/2021 9: 11 AM CDT documented as of this encounter Functional Status Functional Status Response Date of Assess ment Is person deaf or have serious hearing difficult y? No 08/11/2019 Is person blind or have serious difficulty seein g? No 08/11/2019 Does person have serious dif ficulty walking/climbing stairs? No 08/11/2019 Does person have difficulty dressing/bathing? No 08/11/2019 Does person have difficulty doing errands alone? No 08/11/2019 Cognitive Status Response Date of Assessm ent Does person have difficulty concentrating/remembering/making decisions? No 08/11/2019 documented as of this encounter Miscellaneous Notes * Telephone Encounter - Karolyn Cruz - 08/06/2022 3:54 PM DERMATOLOGICAL SURGEON Called patient to reschedule missed appointment on 08/05/2022, but patient reported that appointment was already rescheduled for September. ATOLOGICAL SURGEON * Telephone Encounter - Cassandra Rosario - 08/03/2022 9:06 AM CST Pt wants to reschedule 08/[address] Ramírez. ATOLOGICAL SURGEON documented in this encounter Plan of Treatment Not on file documented as of this encounter Visit Diagnoses Not on filedocumented in this encounter Care Teams Reel Man Relationship Specialty Start Date End Date Keshawn Stone DO [address] [place] [address] PCP - General Internal Medicine 02/21/19 Sultana Smith, RN Registered Nurse 11/29/17 Jerzy Ramírez MD [address] [phone] LATHE MECHANIC Oncology 09/03/22 documented as of this encounter
--- OUTSIDE RECORDS SUMMARY | 2024-11-14 00:41 | XMS_ITS | Encounter Summary ---
Author Organization [facility] Address [address] [facility] [place] [address] Care Team Providers Care Roustabout Supervisor Name Role Phone Sultana Smith RN Unavailable Unavailable Keshawn Stone DO Primary Care Provider [phone] Jerzy Ramírez MD Unavailable [phone] Encounter Details Date Type Department Care Team (Late st Contact Info) Description 07/14/2019 Lab Requisition [facility] Care Pathology Lab [facility] [place] [address] Shanti Viera MD [address] [place] [address] Social History Tobacco Use Types Packs/Day Years Used Date Smoking Tobacco: Former Cigarettes Q uit: 09/20/2007 Smokeless Tobacco: Never Alcohol Use Standard Drinks/Week Comments No 0 (1 standard drink = 0.6 oz pur e alcohol) Sex and Gender Information Value Date Recorded Sex Assigned at Female 05/13/2021 9:11 AM CDT Gender Identity Female 05/13/2021 9:11 AM CDT Sexual Orientation Straight 05/13/2021 9: 11 AM CDT documented as of this encounter Functional Status Functional Status Response Date of Assess ment Is person deaf or have serious hearing difficult y? No 03/27/2019 Is person blind or have serious difficulty seein g? No 03/27/2019 Does person have serious dif ficulty walking/climbing stairs? Yes 03/27/2019 Does person have difficulty dressing/bathing? No 03/27/2019 Does person have difficulty doing errands alone? No 03/27/2019 Cognitive Status Response Date of Assessm ent Does person have difficulty concentrating/remembering/making decisions? No 03/27/2019 documented as of this encounter Plan of Treatment Not on file documented as of this encounter Procedures Procedure Name Priority Date/Time Associated Diagnosis Comments SLIDE PREP HISTOLOGY Routine 07/06/2019 11:20 AM CDT documented in this encounter Results * SLIDE PREP HISTOLOGY (07/06/2019 11:20 AM CDT) Client Specimen ID # 07/17/2019 4:46 PM CDT [facility] Number of Blocks Received 0 07/17/2019 4:46 PM CDT [facility] Number of Slides 1 07/17/2019 4:46 PM CDT [facility] Number of Control Slides 1 07/17/2019 4:46 PM CDT [facility] Pathology/Cytolo gy ENTIRE UTERUS / Unknown 07/06/2019 11:20 AM CDT 07/14/2019 10:26 AM CDT Shanti Viera MD LAB - PATHOLOGY/CYTO LOGY ORDERABLES [facility] [address] [place] [address], [facility] [phone] documented in this encounter Visit Diagnoses Not on filedocumented in this encounter Care Teams Roustabout Supervisor Relationship Specialty Start Date End Date Keshawn Stone DO [address] [place] [address] PCP - General Internal Medicine 02/21/19 Sultana Smith, RN Registered Nurse 11/29/17 Jerzy Ramírez MD [address] [phone] RESEARCH PSYCHOLOGIST Oncology 09/03/22 documented as of this encounter
--- OUTSIDE RECORDS SUMMARY | 2024-11-14 00:41 | XMS_ITS | Clinical Summary ---
Author Organization [facility] Address [facility] [place] [address] Care Team Providers Care Catcher Helper Name Role Phone Betina Orourke MD Unavailable [phone] Jorge Shaver NP Primary Care Provider [phone] Allergies Active Allergy Reactions Criticality Noted Date Comments Mushroom Rash Medium 01/05/2019 [place] Urticaria Medium 02/21/2019 Medications amLODIPine (NORVASC) 5 mg tabletIndicatio ns:hypertension Take 1 tablet (5 mg total) by mouth associate drafter before breakfast 2 Active atorvastatin (LIPITOR) 80 mg tabletIndicatio ns:hyperlipidem ia Take 1 tablet (80 mg total) by mouth nightly 2 Active biotin 10 mg tablet Take 1 tablet (10 mg total) by mouth associate drafter before breakfast Active carvediloL (COREG) 12.5 mg tabletIndicatio ns:hypertension Take 1 tablet (12.5 mg total) by mouth 2 (two) times a day with meals 2 Active folic acid (FOLVITE) 1 mg tabletIndicatio ns:Folate Deficiency Take 1 tablet (1 mg total) by mouth associate drafter before breakfast Active losartan (COZAAR) 100 mg tabletIndicatio ns:hypertension Take 1 tablet (100 mg total) by mouth associate drafter before breakfast 2 Active PARoxetine (PAXIL) 40 mg tabletIndicatio ns:Anxiety with Depression Take 1 tablet (40 mg total) by mouth every morning 2 Active PARoxetine (PAXIL) 10 mg tabletIndicatio ns:Anxiety with Depression Take 1 tablet (10 mg total) by mouth every morning 2 Active vitamins A,C,E-zinc-katie er (PreserVision AREDS) 14,320-226-200 pbag-mn-njut capsuleIndicati ons:Mineral Deficiency Prevention,Ana min Deficiency Prevention Take 2 capsules by mouth associate drafter before breakfast Active hugh/D3/mag11/zi nc/molecular spectroscopist/noel/bor (CALTRATE 600-D PLUS MINERALS ORAL) Take 1 tablet by mouth associate drafter before breakfast Active traZODone (DESYREL) 50 mg tabletIndicatio ns:insomnia associated with depression Take 2 tablets (100 mg total) by mouth nightly 3 Active triamcinolone (KENALOG) 0.1 % cream Apply 1 g topically as needed for irritation or rash 3 Active vitamin E 200 unit capsuleIndicati ons:health Take 180 Units by mouth associate drafter before breakfast Active ferrous sulfate 325 mg [...] incontinence 07/13/2022 Full incontinence of feces 07/13/2022 Surgical History Surgery Date Site/Laterality Comments HYSTERECTOMY 09/20/2018 - 09/19/2019 CHOLECYSTECTOMY 09/20/2018 - 09/19/2019 COLONOSCOPY 09/20/2017 - 09/19/2018 SECTION 80, 84, 86 STOMACH SURGERY 09/20/2018 - 09/19/2019 gASTRIC SLEEVE REDUCTION MAMMAPLASTY 09/20/1997 - 09/19/1998 TOTAL KNEE ARTHROPLASTY 09/20/1996 - 09/19/1997 Right LEG WOUND REPAIR / CLOSURE 09/20/1996 - 09/19/1997 Right metal dustin in femur CATARACT EXTRACTION Bilateral OTHER SURGICAL HISTORY 04/14/2023 INSERTION/REMOVAL INTERSTIM DEVICE STAGE 1 Medical History Medical History Date Comments Fecal incontinence HBP (high blood pressure) Depression Arthritis Endometriosis Family History Medical History Relation Name Comments Anesthesia problems Neg Hx Social History Tobacco Use Types Packs/Day Years Used Date Smoking Tobacco: Former Cigarettes 0.8 15 1 - 2007 Smokeless Tobacco: Never Tobacco Cessation:Counseling [...] Orientation Straight 12/21/2022 1: 04 PM CDT Obstetrics History Last Filed Vital Signs Vital Sign Reading [...] 04/28/2023 12:55 PM CDT Plan of Treatment Health Maintenance Due Date Last Done Comments Breast Cancer Screening-Mammogram 1953 Colon Cancer Screening-Colonoscopy 1955 Depression Screening 1955 Hepatitis C Screening 1955 Osteoporosis Screening-Bone Density Scan 1953 DTaP/Tdap/Td Vaccine (1 - Tdap) 02/01/1964 Hepatitis B Screening 1971 Pneumococcal vaccine 65+ (1 of 1 - PCV) 2003 Zoster Vaccine (1 of 2) 2003 Well Visit 65+ 2018 Fall Risk Assessment 04/29/2024 04/29/2023 Covid-19 Vaccine (4 - 2023-2 5 season) 2024 07/01/2021, 12/03/2020, 11/12/2020 Influenza Vaccine (#1) 2024 , 05/23/2020, 06/30/2019, Additional history exists Medical Devices Implanted Type Area Senior Clinical Consultant Device Identifier Shelf Expiration Date Model / Serial / Lot [employer] Interstim 28cm Quadripolar Mri Cad Application Support Specialist Neurostimulator [id number] - [id number] - [id number] Implanted:Qty: 1 on 04/14/2023 by Haile Briceño MD at [facility] Neurostimulator N/A: Back [employer] 06/09/2024 [id number] / [id number] / [id number] [employer] Interstim 100cm Percutaneous Electrode Insulated Kit [id number] - [id number] - [id number] Implanted:Qty: 1 on 04/14/2023 by Haile Briceño MD at [facility] Neurostimulator N/A: Back [employer] 01/08/2025 [id number] / [id number] / [id number] [employer] Generator Neurostimulator Bowel Bladder Recharge Free Interstim [id number] - [id number] - [id number] Implanted:Qty: 1 on 04/28/2023 by Haile Briceño MD at [facility] Other - see comments N/A: Back [employer] 07/03/2024 [id number] / [id number] / Description:Implant pause pe rformed Right Knee Replacement Right: Knee Dustin Right Femur Right: Femur Insurance MEDICARE [facility] MEDICARE [facility] Address: [address] [address] [place] [address] IDPA Advance Directives For more information, please contact: [phone] * Full Code (Latest Code Status on File) Date Activated Date Inactivated Comments 04/28/2023 4:04 PM 04/29/2023 2:49 PM Care Teams Catcher Helper Relationship Specialty Start Date End Date Jorge Shaver NP [address] [place] [address] PCP - General Nurse Practitioner 04/01/23 Betina Orourke MD [phone] [place] [address] Surgeon Colon and Rectal Surgery 07/09/22
--- OUTSIDE RECORDS SUMMARY | 2024-11-14 00:41 | XMS_ITS | Referral Summary ---
Author Organization [facility] Address [address] [place] [address] Care Team Providers Care Armored Machine Operator Name Role Phone Sultana Smith RN Unavailable Unavailable Keshawn Stone DO Primary Care Provider [phone] Jerzy Ramírez MD Unavailable [phone] Source Comments [facility],non-owned Affiliates and Associated Physician Practices is amultiple site organization consisting of ambulatory clinics and hospital sitesin [place], [place], [place] and [place]. This disclosure is being madepursuant to the Care Everywhere program and may not contain all information available regarding this patient. Last updated 18.[facility] Allergies Active Allergy Reactions Criticality Noted Date Comments Mushroom Extract Complex Rash Medium 01/05/2019 [place] Urticaria Medium 02/21/2019 Medications * Be aware [...] Vitamins-Minerals (ICAPS AREDS 2 PO) Active Biotin 17637 MCG TABS Take 1 (one) tablet by [...] Comments Blood Pressure 106/82 10/07/2022 1:58 PM SUPERVISOR CIGAR MAKING MACHINE Pulse 83 05/20/2021 1:15 PM CDT Temperature 36.7 C (98 F) 05/20/2021 1:15 PM CDT Respiratory Rate 18 08/11/2019 12:1 8 PM SUPERVISOR CIGAR MAKING MACHINE Oxygen Saturation 93% 08/11/2019 12: 18 PM SUPERVISOR CIGAR MAKING MACHINE Inhaled Oxygen Concentration - - Weight 103.2 kg (227 lb 9.6 oz) 10/07/2022 1:58 PM SUPERVISOR CIGAR MAKING MACHINE Height 167.6 cm (5' 6 ) 10/07/2022 1:58 PM SUPERVISOR CIGAR MAKING MACHINE Body Mass Index 36.74 10/07/2022 1:58 PM SUPERVISOR CIGAR MAKING MACHINE Functional Status Functional Status Response Date of [...] person have difficulty concentrating/remembering/making decisions? No 08/11/2019 Plan of Treatment Not on file Procedures Procedure Name Priority Date/Time Associated Diagnosis Comments COMPREHENSIVE METABOLIC PANEL 04/12/2020 11:15 AM CDT from Last 3 Months or Most Recently Relevant to Health Maintenance Results * (ABNORMAL) COMPREHENSIVE METABOLIC PANEL (04/12/2020 11:15 AM CDT) [facility] Signature Glucose 98 65 - 99 mg/dL [facility] Comment: Fasting reference interval BUN 15 7 - 25 mg/dL [facility] Creatinine 0.73 0.50 - 0.99 mg/dL [facility] Comment: For patients >49 years of age, the reference limit for Creatinine is approximately 13% higher for people identified as -Prydeinig. eGFR by MDRD 85 > OR = [...] 29 U/L [facility] Comment: Test Performed at: [facility] [id number] [place] [id number] MAYR VSAQUEZ DO,MPH 04/12/2020 11:1 5 AM CDT 04/12/2020 11:16 AM CDT Phyllis Irving APRN-[facility] - CHEMIS TRY ORDERABLES [facility] [address] [place] [address] from Last 3 Months or Most Recently Relevant to Health Maintenance Advance Directives * Full Code (Latest Code Status on File) Date Activated Date Inactivated Comments 03/27/2019 8:28 PM 03/28/2019 7:43 PM Care Teams Armored Machine Operator Relationship Specialty Start Date End Date Keshawn Stone DO [address] [facility] [address] [place] [address] PCP - General Internal Medicine 02/21/19 Sultana Smith, RN Registered Nurse 11/29/17 Jerzy Ramírez MD [facility] [id number] HOME PERFORMANCE CONSULTANT Oncology 09/03/22
[2024-11-14 11:10] VITALS: BP 122/78; PULSE 97; RESP 18; TEMP 36.3; O2SAT 99; BMI 26.6
[2024-11-14] MEDS: LACTATED RINGERS 1,000 ML 150 ML IV CONT (11:19)
--- NOTE | 2024-11-14 11:23 | PM.HPGS ---
History of Present Illness History of Present Illness Consent: Risks, benefits, and alternatives have been discussed and questions answered. Patient agrees to proceed with procedure. Chief complaint: nausea, bariatric surgery status Narrative: Rosetta Cardenas is a 69 year old female with nausea after had gastric sleeve about 6-7 years ago Review of Systems Review of Systems: All systems reviewed & are unremarkable except as noted in HPI and below PMFSH Past Medical History Medical History (Updated 09/27/24 @ 13:22 by Mariaa Wu APRN) Bladder disorder Stimulator placed 05/2023 Overactive bladder Anxiety Essential (primary) hypertension Gastroesophageal reflux disease without esophagitis Hypothyroidism, unspecified Mixed hyperlipidemia Surgical History Surgical History (Updated 09/26/24 @ 10:00 by Mariaa Wu APRN) H/O gastric sleeve Hx of cholecystectomy H/O radiofrequency ablation (RFA) of nerve of lumbar spine H/O eye surgery History of knee surgery Family History Family History Mother Family history of cardiac disorder Carcinoma of colon Family history of heart disease in male family member before age 55 Father Family history of Alzheimer's disease Family history of congestive heart failure Patient's father is Family history of heart disease in male family member before age 55 Sibling Hypertension Social History Social History Smoking packs per day: 1 Smoking cigarettes per day: 20.0 Years smoked: 15 Smoking pack-years: 15.00 Smoking status: Former smoker Tobacco type: cigarettes Second hand tobacco smoke exposure: No Smoking end date: 09/20/08 Alcohol intake: never Substance use: never Substance use type: does not use Do You Feel Safe in your Home?: Yes Lack of Transportation: No Lack of Food: Never True Current Housing: I Have Housing Concerned About Future Housing: No Difficulty Paying Gas/Electric Bills: No Difficulty Paying for Meds: No Currently Unemployed: No Education: High School Diploma/GED Difficulty w/ Childcare or Family Care: No Living arrangements: alone Occupation/Education: retired Gender identity (if verbalized by the patient): Female Spiritual care concerns: No Agree to blood products: Yes Meds Home Medications and Allergies Home Medications ?Medication ?Instructions ?Recorded ?Confirmed ?Type multivitamin with iron (Daily 1 tablet PO DAILY 10/30/19 10/30/24 History Vitamin with Iron tablet) vitamins A,C,P-uwlk-hojbni 4,296 1 cap PO BID 10/30/19 11/14/24 History mcg-226 mg-90 mg capsule (PreserVision AREDS) folic acid 1 mg tablet 1 mg PO DAILY #90 tabs 01/25/20 11/14/24 Rx tramadol 50 mg tablet 50 mg PO Q6-8H PRN pain 01/25/24 10/30/24 History atorvastatin 80 mg tablet See Rx Instructions .Route 06/30/24 11/14/24 Rx .COMPLEX #90 tabs carvedilol 12.5 mg tablet See Rx Instructions .Route 07/05/24 11/14/24 Rx .COMPLEX #180 tabs paroxetine HCl 40 mg tablet 40 mg PO DAILY #90 tabs 07/25/24 11/14/24 Rx amlodipine 5 mg tablet See Rx Instructions .Route 08/31/24 11/14/24 Rx .COMPLEX #90 tabs calcium carbonate-vitamin 1 tablet PO DAILY 08/31/24 11/14/24 History D2-minerals tablet levothyroxine 112 mcg tablet See Rx Instructions .Route 08/31/24 11/14/24 Rx .COMPLEX #90 tabs bupropion HCl 150 mg 24 hr tablet, 150 mg PO QAM #90 tabs 09/27/24 11/14/24 Rx extended release (Wellbutrin XL) prochlorperazine maleate 10 mg 10 mg PO Q8H PRN nausea and 10/02/24 10/30/24 Rx tablet (Compazine) vomiting #20 tabs trazodone 50 mg tablet See Rx Instructions .Route 10/02/24 10/30/24 Rx .COMPLEX #90 tabs losartan 100 mg tablet See Rx Instructions .Route 10/03/24 11/14/24 Rx .COMPLEX #90 tabs paroxetine HCl 10 mg tablet See Rx Instructions .Route 10/05/24 11/14/24 Rx .COMPLEX #90 tabs Allergies Allergy/AdvReac Type Severity Reaction Status Date / Time mushroom Allergy Unknown Rash Verified 11/14/24 11:08 strawberry Allergy Unknown Hives Verified 11/14/24 11:08 Vital Signs Vital Signs - 24 hr 11/14/24 11:10 Temperature 97.3 F L Pulse Rate 97 Respiratory Rate 18 Blood Pressure 122/78 Pulse Oximetry 99 Oxygen Delivery Room Air Exam Const: General: comfortable and no acute distress HENMT: Face/Nose/Sinus: Normal nares present Eyes: General: appearance normal, both eyes and all related structures Neck: Neck: no JVD Resp: Auscultation: clear to auscultation bilaterally Cardio: Rate: regular rate Rhythm: regular rhythm GI: Inspection: non-distended GI Palp: Yes Soft to palpation Skin: General skin exam: normal color Neuro: Speech: normal speech Extrem: General: normal to inspection Psych: Mental Status: mental status grossly normal Assessment and Plan Assessment and plan (1) Nausea: Code(s): R11.0 - Nausea Status: Acute Assessment and Plan: egd, wonder if could be related to previous gastric surgery (2) Bariatric surgery status: Code(s): Z98.84 - Bariatric surgery status Status: Acute
--- NOTE | 2024-11-14 11:58 | P.PNAN_ITS ---
Anes - Initial Pre Proc Eval Procedure: Operation Date: 11/14/24 12:30 Proposed Procedures p Esophagogastroduodenoscopy - Deshaun Clinton MD Date/Time: 11/14/24 11:58 Surgeon: Deshaun Clinton MD Pre Op Diagnosis: nausea, bariatric surgery status Patient Data Age: 69 Gender: F Height: 1.68 m Weight: 75 kg Last Vital Signs Temp 36.3 C L 11/14/24 11:10 Pulse 97 11/14/24 11:10 Resp 18 11/14/24 11:10 BP 122/78 11/14/24 11:10 Pulse Ox 99 11/14/24 11:10 O2 Del Method Room Air 11/14/24 11:10 Allergies Allergy/AdvReac Type Severity Reaction Status Date / Time mushroom Allergy Unknown Rash Verified 11/14/24 11:08 strawberry Allergy Unknown Hives Verified 11/14/24 11:08 Home Medications ?Medication ?Instructions ?Recorded ?Confirmed ?Type multivitamin with iron (Daily 1 tablet PO DAILY 10/30/19 10/30/24 History Vitamin with Iron tablet) vitamins A,C,H-etdc-wvkuru 4,296 1 cap PO BID 10/30/19 11/14/24 History mcg-226 mg-90 mg capsule (PreserVision AREDS) folic acid 1 mg tablet 1 mg PO DAILY #90 tabs 01/25/20 11/14/24 Rx tramadol 50 mg tablet 50 mg PO Q6-8H PRN pain 01/25/24 10/30/24 History atorvastatin 80 mg tablet See Rx Instructions .Route 06/30/24 11/14/24 Rx .COMPLEX #90 tabs carvedilol 12.5 mg tablet See Rx Instructions .Route 07/05/24 11/14/24 Rx .COMPLEX #180 tabs paroxetine HCl 40 mg tablet 40 mg PO DAILY #90 tabs 07/25/24 11/14/24 Rx amlodipine 5 mg tablet See Rx Instructions .Route 08/31/24 11/14/24 Rx .COMPLEX #90 tabs calcium carbonate-vitamin 1 tablet PO DAILY 08/31/24 11/14/24 History D2-minerals tablet levothyroxine 112 mcg tablet See Rx Instructions .Route 08/31/24 11/14/24 Rx .COMPLEX #90 tabs bupropion HCl 150 mg 24 hr tablet, 150 mg PO QAM #90 tabs 09/27/24 11/14/24 Rx extended release (Wellbutrin XL) prochlorperazine maleate 10 mg 10 mg PO Q8H PRN nausea and 10/02/24 10/30/24 Rx tablet (Compazine) vomiting #20 tabs trazodone 50 mg tablet See Rx Instructions .Route 10/02/24 10/30/24 Rx .COMPLEX #90 tabs losartan 100 mg tablet See Rx Instructions .Route 10/03/24 11/14/24 Rx .COMPLEX #90 tabs paroxetine HCl 10 mg tablet See Rx Instructions .Route 10/05/24 11/14/24 Rx .COMPLEX #90 tabs Patient hx anesthesia problems: none Family hx anesthesia problems: none Results Review: All pre-operative results and documents have been reviewed as part of the pre- operative evaluation. [facility] Past Medical History Medical History Bladder disorder Stimulator placed 05/2023 Overactive bladder Anxiety Essential (primary) hypertension Gastroesophageal reflux disease without esophagitis Hypothyroidism, unspecified Mixed hyperlipidemia Surgical History Surgical History H/O gastric sleeve Hx of cholecystectomy H/O radiofrequency ablation (RFA) of nerve of lumbar spine H/O eye surgery History of knee surgery Family History Family History Mother Family history of cardiac disorder Carcinoma of colon Family history of heart disease in male family member before age 55 Father Family history of Alzheimer's disease Family history of congestive heart failure Patient's father is Family history of heart disease in male family member before age 55 Sibling Hypertension Social History Social History Smoking packs per day: 1 Smoking cigarettes per day: 20.0 Years smoked: 15 Smoking pack-years: 15.00 Smoking status: Former smoker Tobacco type: cigarettes Second hand tobacco smoke exposure: No Smoking end date: 09/20/08 Alcohol intake: never Substance use: never Substance use type: does not use Do You Feel Safe in your Home?: Yes Lack of Transportation: No Lack of Food: Never True Current Housing: I Have Housing Concerned About Future Housing: No Difficulty Paying Gas/Electric Bills: No Difficulty Paying for Meds: No Currently Unemployed: No Education: High School Diploma/GED Difficulty w/ Childcare or Family Care: No Living arrangements: alone Occupation/Education: retired Gender identity (if verbalized by the patient): Female Spiritual care concerns: No Agree to blood products: Yes Anes - Eval Final PreProcedure Day of Procedure 11/14/24 11:58 Patient weight: normal Heart: regular rate and rhythm Lungs: clear to auscultation Airway: Mallampati scale class II Neurological: alert and oriented Last oral intake: >/= 8 hours ASA classification: III Emergent: no Anesthetic plan: proceed Anesthesia type and monitoring: general GIVS and standard monitoring Results Review: All pre-operative results and documents have been reviewed as part of the pre- operative evaluation. Informed Consent: The patient's anesthetic plan and its attendant risks and benefits were discussed with the patient/family/POA. Questions were solicited and answers provided to the satisfaction of the patient/family/POA.
[2024-11-14 12:47] VITALS: BP 118/64; PULSE 58; RESP 29; O2SAT 98
[2024-11-14 12:57] VITALS: BP 122/66; PULSE 58; RESP 23; O2SAT 96
[2024-11-14 13:07] VITALS: BP 162/81; PULSE 63; RESP 23; O2SAT 96
== END 2024-11-14 13:22 | disposition home or self-care (01) ==
PROVIDERS: PCP Nurse Practitioner Family; Visit Provider Internal Medicine Gastroenterology
PROC: 0DJ08ZZ Inspection of Upper Intestinal Tract, Via Natural or Artificial Opening Endoscopic (ICD-10-PCS; CPT 43239; principal; 2024-11-14 12:30)
DX: R11.0 Nausea (principal); I10 Essential (primary) hypertension; K21.9 Gastro-esophageal reflux disease without esophagitis; E03.9 Hypothyroidism, unspecified; E78.2 Mixed hyperlipidemia; N32.81 Overactive bladder; F41.9 Anxiety disorder, unspecified; Z79.891 Long term (current) use of opiate analgesic; Z98.890 Other specified postprocedural states; Z98.84 Bariatric surgery status; Z90.49 Acquired absence of other specified parts of digestive tract; Z96.82 Presence of neurostimulator; Z87.891 Personal history of nicotine dependence; Z86.79 Personal history of other diseases of the circulatory system; Z80.0 Family history of malignant neoplasm of digestive organs; Z82.49 Family history of ischemic heart disease and other diseases of the circulatory system
CPT/HCPCS: 43239; 88305; J2003; J2704; J7120

== ENCOUNTER 2025-03-20 13:51 | Outpatient (CLI) | payer MEDICARE, MEDICAID, SELFPAY ==
--- NOTE | ~2025-03-20 | US_ITS ---
Renal-Bladder ultrasound Clinical History: Chronic kidney disease Technique: Real-time sonographic imaging of the kidneys and urinary bladder was performed. Findings: The right kidney measures 9.4 cm in length and the left kidney measures 9.9 cm. There is no hydronephrosis or renal calculus identified. Renal cortical echogenicity is within normal limits. No renal mass lesion is identified. The urinary bladder is partially distended at the time of this exam. No intraluminal echoes are ident ified. No abnormal wall thickening is seen. Impression: Unremarkable ultrasound of the kidneys and urinary bladder. Reviewed, dictated and finalized at location M. Impression: Unremarkable ultrasound of the kidneys and urinary bladder.
== END 2025-03-20 13:52 | disposition home or self-care (01) ==
LOC: MICIMG 13:51
PROVIDERS: PCP Nurse Practitioner Family; Visit Provider Internal Medicine Nephrology
DX: N18.31 Chronic kidney disease, stage 3a (principal)
CPT/HCPCS: 76775

== ENCOUNTER 2025-08-02 12:15 | Outpatient (CLI) | payer MEDICARE, OTHER, SELFPAY ==
--- NOTE | ~2025-08-02 | XR_ITS ---
EXAM/PROCEDURE: X-ray lumbar spine 2-3 views HISTORY: Pain COMPARISON: 2017 TECHNIQUE: 3 views were obtained. FINDINGS: Vertebral bodies: There is minimal wedging deformity of L1 and probably some of the lower thoracic vertebral bodies. There is a stimulator device traversing the sacrum. Alignment: AP: Normal. Lateral: Normal. There is marked facet arthropathy at the lower levels. There is osteophyte formation. There is loss of disc space height at L2-3 in particular, and some degree is suspected elsewhere. There are large calcifications in the region of the left kidney. IMPRESSION: Significant degenerative change. Large calcifications in the region of the left kidney. This may be the source, or one of the sources, of the patient's pain. CT is recommended for further evaluation. Reviewed, dictated and finalized at location A. ET FLUSHER DRIVER
--- OUTSIDE RECORDS SUMMARY | 2025-08-02 12:59 | XMS_ITS | Clinical Summary ---
Author Organization [facility] Address [address] [facility] [place] [address] Care Team Providers Care Aircraft Part Assembler Name Role Phone Sultana Smith RN Unavailable Unavailable Keshawn Stone DO Primary Care Provider [phone] Jerzy Ramírez MD Unavailable [phone] Source Comments [facility],non-owned Affiliates and Associated Physician Practices is amultiple site organization consisting of ambulatory clinics and hospital sitesin [place], [place], [place] and [place]. This disclosure is being madepursuant to the Care Everywhere program and may not contain all information available regarding this patient. Last updated 18.[facility] Allergies Active Allergy Reactions Criticality Noted Date Comments Mushroom Extract Complex Rash Medium 01/05/2019 [place] Urticaria Medium 02/21/2019 Medications * Be aware that medications may not be up to date on this document. Alwaysverify current medications with the patient. levothyroxine (SYNTHROID) 112 MCG tablet Take 1 [...] tablet by mouth once daily 30 tablet 9 Active Multiple Vitamins-Minera ls (ICAPS AREDS 2 PO) Active Biotin 47252 MCG TABS Take 1 (one) tablet by mouth once daily Active ferrous sulfate 325 (65 FE) MG tablet Take 1 tablet by mouth once daily 100 tablet 9 Active amLODIPine (NORVASC) 5 MG tablet 1 Active traMADol (Ultram) 50 MG tablet 2 Active Active Problems Problem Noted Date Diagnosed [...] Years Used Date Smoking Tobacco: Former Cigarettes 0 Q uit: 09/20/2007 Smokeless Tobacco: Never Tobacco Cessation:Counseling Given: Not Answered Alcohol Use Standard Drinks/Week Comments No 0 (1 standard drink = 0.6 oz pur e alcohol) AUDIT-C Answer Date Recorded Q1: How often do you have a drink containing alc ohol? Never 12/11/2020 Average Number of Drinks Not on file 021 Frequency of Binge Drinking Not on file 11/19 Comments No Sex and Gender Information Value Date Recorded Sex Assigned at Female 05/13/2021 9:11 AM CDT Legal Sex Female 7:45 PM RENAL TECHNICIAN Gender Identity Female 05/13/2021 9:11 AM CDT Sexual Orientation Straight 05/13/2021 9: 11 AM CDT Last Filed Vital Signs Vital Sign Reading Time Taken Comments Blood Pressure 106/82 10/07/2022 1:58 PM RENAL TECHNICIAN Pulse 83 05/20/2021 1:15 PM CDT Temperature 36.7 C (98 F) 05/20/2021 1:15 PM CDT Respiratory Rate 18 08/11/2019 12:1 8 PM RENAL TECHNICIAN Oxygen Saturation 93% 08/11/2019 12: 18 PM RENAL TECHNICIAN Inhaled Oxygen Concentration - - Weight 103.2 kg (227 lb 9.6 oz) 10/07/2022 1:58 PM RENAL TECHNICIAN Height 167.6 cm (5' 6) 10/07/2022 1:58 PM RENAL TECHNICIAN Body Mass Index 36.74 10/07/2022 1:58 PM RENAL TECHNICIAN Plan of Treatment Health Maintenance Due Date [...] 04/12/2023 0, 08/02/2019, 07/07/2019, Additional history exists DEPRESSION SCREENING 09/20/2024 COVID-19 VACCINE (3 - season) 2025 12/03/2020, 11/12/2020 INFLUENZA VACCINE (#1) 2025 Respiratory Syncytial Virus (RSV) Vaccine Pt: or [...] complete this topic MENINGOCOCCAL (Group B) VACCINE SHARED DECISION-MAKING Aged Out No longer eligible based on patient's age to complete this topic MENINGOCOCCAL GROUPS A/C/Y/W VACCINE Aged Out No longer eligible based [...] approximately 13% higher for people identified as -[place]. eGFR by MDRD 85 > OR = [...] 29 U/L [facility] Comment: Test Performed at: [facility] [id number] [place] [id number] MARY VASQUEZ DO,MPH 04/12/2020 11:1 5 AM CDT 04/12/2020 11:16 AM CDT Phyllis Irving CAR LOT ATTENDANT-[facility]OC[facility]ATE [facility] - CHEMISTRY ORDE JONATHAN Final Result [facility] [id number] [place] [address] from Last 3 Months or Most Recently Relevant to Health Maintenance Insurance MEDICAID - [place] MEDICARE Advance Directives * Full Code (Latest Code Status on File) Date Activated Date Inactivated Comments 03/27/2019 8:28 PM 03/28/2019 7:43 PM Care Teams Aircraft Part Assembler Relationship Specialty Start Date End Date Keshawn Stone DO [address] [place] [address] PCP - General Internal Medicine 02/21/19 Sultana Smith RN Registered Nurse 11/29/17 Jerzy Ramírez MD [address] [id number] REGULATORY SCIENTIST Oncology 09/03/22
--- OUTSIDE RECORDS SUMMARY | 2025-08-02 12:59 | XMS_ITS | Clinical Summary ---
Author Organization [facility] Address [address], [place] [address] Phone Care Team Providers Care Television Newscast Director Name Role Phone Rodríguez Carrasquillo DO Unavailable [phone] Twila Cardona APRN Primary Care Provider [phone] Allergies No known active allergies Medications Cholecalciferol [...] Comments Blood Pressure 130/82 09/06/2017 1:10 PM CURRICULUM WRITER Pulse 83 09/06/2017 1:10 PM CURRICULUM WRITER Temperature 36.6 C (97.8 F) 09/06/2017 1:10 PM CURRICULUM WRITER Respiratory Rate 16 09/06/2017 1:10 PM CURRICULUM WRITER Oxygen Saturation 95% 09/06/2017 1:10 PM CURRICULUM WRITER Inhaled Oxygen Concentration - - Weight 122.5 kg (270 lb) 09/06/2017 1:10 PM CURRICULUM WRITER Height 167.6 cm (5' 6) 09/06/2017 1:10 PM CURRICULUM WRITER Body Mass Index 43.58 09/06/2017 1:10 PM CURRICULUM WRITER Plan of Treatment Health Maintenance Due Date Last Done Comments Hepatitis C Virus (HCV) Screening 1955 TdaP Immunization 1955 Cologuard 1998 Immunochemical Fecal Occult Blood 1998 Pneumococcal Immunization (50+ years) (1 of 1 - PCV) 2003 Zoster Immunization (1 of 2) 2003 Medicare Initial AWV [id number] 01/18/2019 Influenza Immunization (#1) 2025 09/0 11/2019, 06/30/2019, 08/03/2018, Additional history exists SARS-COV-2 Immunization ( season) 2025 07/01/2021, 12/03/2020, 11/12/2020 Respiratory Syncytial Virus (RSV) Immunization (Adult) (1 - 1-dose 75+ series) 02/01/2028 Colonoscopy 01/06/2031 01/06/2021, 10/17/2015 Colorectal Cancer Screening 01/06/2031 Hepatitis B Immunization Aged Out No longer eligible based on patient's age to complete this topic Human Papillomavirus (HPV) Immunization Aged Out No longer eligible based [...] Maintenance Insurance MEDICARE [place]ICAID [place] Care Teams Television Newscast Director Relationship Specialty Start Date End Date Twila Cardona APRN PCP - General Family Medicine 11/21/20 Rodrgíuez Carrasquillo DO Gastroenterology 10/17/15
--- OUTSIDE RECORDS SUMMARY | 2025-08-02 12:59 | XMS_ITS | Clinical Summary ---
Author Organization [facility] Address [facility] [place] [address] Care Team Providers Care Manager Application Name Role Phone Betina Orourke MD Unavailable [phone] Jorge Shaver NP Primary Care Provider [phone] Allergies Active Allergy Reactions Criticality Noted Date Comments Mushroom Rash Medium 01/05/2019 [place] Urticaria Medium 02/21/2019 Medications amLODIPine (NORVASC) 5 mg tabletIndicatio ns:hypertension Take 1 tablet (5 mg total) by mouth chief dispatcher before breakfast 2 Active atorvastatin (LIPITOR) 80 mg tabletIndicatio ns:hyperlipidem ia Take 1 tablet (80 mg total) by mouth nightly 2 Active biotin 10 mg tablet Take 1 tablet (10 mg total) by mouth chief dispatcher before breakfast Active carvediloL (COREG) 12.5 mg tabletIndicatio ns:hypertension Take 1 tablet (12.5 mg total) by mouth 2 (two) times a day with meals 2 Active folic acid (FOLVITE) 1 mg tabletIndicatio ns:Folate Deficiency Take 1 tablet (1 mg total) by mouth chief dispatcher before breakfast Active losartan (COZAAR) 100 mg tabletIndicatio ns:hypertension Take 1 tablet (100 mg total) by mouth chief dispatcher before breakfast 2 Active PARoxetine (PAXIL) 40 mg tabletIndicatio ns:Anxiety with Depression Take 1 tablet (40 mg total) by mouth every morning 2 Active PARoxetine (PAXIL) 10 mg tabletIndicatio ns:Anxiety with Depression Take 1 tablet (10 mg total) by mouth every morning 2 Active vitamins A,C,E-zinc-katie er (PreserVision AREDS) 14,320-226-200 thuc-bv-ltnl capsuleIndicati ons:Mineral Deficiency Prevention,Ana min Deficiency Prevention Take 2 capsules by mouth chief dispatcher before breakfast Active hugh/D3/mag11/zi nc/ad copy writer/noel/bor (CALTRATE 600-D PLUS MINERALS ORAL) Take 1 tablet by mouth chief dispatcher before breakfast Active traZODone (DESYREL) 50 mg tabletIndicatio ns:insomnia associated with depression Take 2 tablets (100 mg total) by mouth nightly 3 Active triamcinolone (KENALOG) 0.1 % cream Apply 1 g topically as needed for irritation or rash 3 Active vitamin E 200 unit capsuleIndicati ons:health Take 180 Units by mouth chief dispatcher before breakfast Active ferrous sulfate 325 mg [...] 12:55 PM CDT Height 167.6 cm (5' 6) 04/28/2023 12:5 5 PM CDT Body Mass Index 37.8 04/28/2023 12:55 PM CDT Plan of Treatment Health Maintenance Due Date Last Done Comments Breast Cancer Screening-Mammogram 1953 Colon Cancer Screening-Colonoscopy 1955 Depression Screening 1953 Hepatitis C Screening 1953 Osteoporosis Screening-Bone Density Scan 1953 DTaP/Tdap/Td Vaccine (1 - Tdap) 02/01/1964 Hepatitis B Screening 1971 Pneumococcal vaccine 65+ (1 of 2 - PCV) 02/01/1972 Zoster Vaccine (1 of 2) 2003 Well Visit 65+ 2018 Fall Risk Assessment 04/29/2024 04/29/2023 Covid-19 Vaccine (4 - 2024-2 6 season) 2025 07/01/2021, 12/03/2020, 11/12/2020 Influenza Vaccine (#1) 2025 , 05/23/2020, 06/30/2019, Additional history exists Medical Devices Implanted Type Area Drawing Kiln Supervisor Device Identifier Shelf Expiration Date Model / Serial / Lot Medtronic Inc Interstim 28cm Quadripolar Mri Food Writer Neurostimulator [id number] - [id number] - [id number] Implanted:Qty: 1 on 04/14/2023 by Haile Briceño MD at [facility] Neurostimulator N/A: Back Medtronic Inc 06/09/2024 [id number] / [id number] / [id number] Medtronic Inc Interstim 100cm Percutaneous Electrode Insulated Kit [id number] - [id number] - [id number] Implanted:Qty: 1 on 04/14/2023 by Haile Briceño MD at [facility] Neurostimulator N/A: Back Medtronic Inc 01/08/2025 [id number] / [id number] / [id number] Medtronic Inc Generator Neurostimulator Bowel Bladder Recharge Free Interstim X [id number] - [id number] - [id number] Implanted:Qty: 1 on 04/28/2023 by Haile Briceño MD at [facility] Other - see comments N/A: Back Medtronic Inc 07/03/2024 [id number] / [id number] / Description:Implant pause pe rformed Right Knee Replacement Right: Knee Dustin Right Femur Right: Femur Insurance MEDICARE [facility] MEDICARE IDPA Advance Directives For more information, please contact: [phone] * Full Code (Latest Code Status on File) Date Activated Date Inactivated Comments 04/28/2023 4:04 PM 04/29/2023 2:49 PM Care Teams Manager Application Relationship Specialty Start Date End Date Jorge Shaver NP [address] [place] [address] PCP - General Nurse Practitioner 04/01/23 Betina Orourke MD [phone] [place] [address] Surgeon Colon and Rectal Surgery 07/09/22
--- OUTSIDE RECORDS SUMMARY | 2025-08-02 12:59 | XMS_ITS | Encounter Summary ---
Author Organization [facility] Address [address] [place] [address] Care Team Providers Care Aircraft Inspector Name Role Phone Sultana Smith RN Unavailable Unavailable Keshawn Stone DO Primary Care Provider [phone] Jerzy Ramírez MD Unavailable Reason for Visit * Reason Onset Date Comments Reschedule Appointment 08/03/2022 Encounter Details Date Type Department Care Team (Late st Contact Info) Description 08/03/2022 Telephone [facility] [address] [place] [address] Jerzy Ramírez MD [address] [facility] [facility] [facility] [address] [place] [phone] Reschedule Appointment Social History Tobacco Use Types Packs/Day Years Used Date Smoking Tobacco: Former Cigarettes 0 Q uit: 09/20/2007 Smokeless Tobacco: Never Alcohol [...] AM CDT Legal Sex Female 7:45 PM PURCHASING SPECIALIST Gender Identity Female 05/13/2021 9:11 AM CDT Sexual Orientation Straight 05/13/2021 9: 11 AM CDT documented as of this encounter Functional Status * Is person deaf or have serious hearing difficulty? Answer Date of Assessment Author No 08/11/2019 8:00 AM Concepción Best RN * Is person blind or have serious difficulty seeing? Answer Date of Assessment Author No 08/11/2019 8:00 AM Concepción Best RN * Does person have serious difficulty walking/climbing stairs? Answer Date of Assessment Author No 08/11/2019 8:00 AM Concepción Best RN * Does person have difficulty dressing/bathing? Answer Date of Assessment Author No 08/11/2019 8:00 AM Concepción Best RN * Does person have difficulty doing errands alone? Answer Date of Assessment Author No 08/11/2019 8:00 AM Concepción Best RN documented as of this encounter Mental Status * Does person have difficulty concentrating/remembering/making decisions? Answer Entry Date Author No 08/11/2019 8:00 AM Concepción Best RN documented in this encounter Miscellaneous Notes * Telephone Encounter - Karolyn Cruz - 08/06/2022 3:54 PM PURCHASING SPECIALIST Called patient to reschedule missed appointment on 08/05/2022, but patient reported that appointment was already rescheduled for September. HASING SPECIALIST * Telephone Encounter - Cassandra Rosario - 08/03/2022 9:06 AM CST Pt wants to reschedule 08/[address] Ramírez. HASING SPECIALIST documented in this encounter Plan of Treatment Not on file documented as of this encounter Visit Diagnoses Not on filedocumented in this encounter Care Teams Aircraft Inspector Relationship Specialty Start Date End Date Keshawn Stone DO [address] [address] PCP - General Internal Medicine 02/21/19 Sultana Smith, RN Registered Nurse 11/29/17 Jerzy Ramírez MD [address] [phone] SWING FRAME GRINDER OPERATOR Oncology 09/03/22 documented as of this encounter
--- OUTSIDE RECORDS SUMMARY | 2025-08-02 12:59 | XMS_ITS | Encounter Summary ---
Author Organization [facility] Address [address] [place] [address] Care Team Providers Care Electronics Detail Draftsperson Name Role Phone Sultana Smith RN Unavailable Unavailable Keshawn Stone DO Primary Care Provider [phone] Jerzy Ramírez MD Unavailable [phone] Encounter Details Date Type Department Care Team (Late st Contact Info) Description 07/14/2019 Lab Requisition [facility] [address] [place] [address] Shanti Viera MD [address] [place] [address] Social History Tobacco Use Types Packs/Day Years Used Date Smoking Tobacco: Former Cigarettes 0 Q uit: 09/20/2007 Smokeless Tobacco: Never Alcohol Use Standard Drinks/Week Comments No 0 (1 standard drink = 0.6 oz pur e alcohol) Comments No Sex and Gender Information Value Date Recorded Sex Assigned at Female 05/13/2021 9:11 AM CDT Legal Sex Female 7:45 PM SLAB PULLER Gender Identity Female 05/13/2021 9:11 AM CDT Sexual Orientation Straight 05/13/2021 9: 11 AM CDT documented as of this encounter Functional Status * Is person deaf or have serious hearing difficulty? Answer Date of Assessment Author No 03/27/2019 10:00 PM CDT Josephine Caceres RN * Is person blind or have serious difficulty seeing? Answer Date of Assessment Author No 03/27/2019 10:00 PM CDT Josephine Caceres RN * Does person have serious difficulty walking/climbing stairs? Answer Date of Assessment Author Yes 03/27/2019 10:00 PM CDT Josephine Caceres RN * Does person have difficulty dressing/bathing? Answer Date of Assessment Author No 03/27/2019 10:00 PM CDT Josephine Caceres RN * Does person have difficulty doing errands alone? Answer Date of Assessment Author No 03/27/2019 10:00 PM CDT Josephine Caceres RN documented as of this encounter Mental Status * Does person have difficulty concentrating/remembering/making decisions? Answer Entry Date Author No 03/27/2019 10:00 PM CDT Josephine Caceres RN documented in this encounter Plan of Treatment Not on file documented as of this encounter Procedures Procedure Name Priority Date/Time Associated Diagnosis Comments SLIDE PREP HISTOLOGY Routine 07/06/2019 11:20 AM CDT documented in this encounter Results * SLIDE PREP HISTOLOGY (07/06/2019 11:20 AM CDT) Client Specimen ID # 07/17/2019 4:46 PM CDT [facility] Number of Blocks Received 0 07/17/2019 4:46 PM CDT [facility] Number of Slides 1 07/17/2019 4:46 PM CDT [facility] PATHOLOGY LAB Number of Control Slides 1 07/17/2019 4:46 PM CDT [facility] Pathology/Cytolo gy ENTIRE UTERUS / Unknown 07/06/2019 11:20 AM CDT 07/14/2019 10:26 AM CDT us Shanti Viera MD LAB - PATHOLOGY/CYTOLOGY ORD ERABLES Final Result [facility] [address] [place] [address], [facility] [phone] documented in this encounter Visit Diagnoses Not on filedocumented in this encounter Care Teams Electronics Detail Draftsperson Relationship Specialty Start Date End Date Keshawn Stone DO [address] [place] [address] PCP - General Internal Medicine 02/21/19 Sultana Smith, RN Registered Nurse 11/29/17 Jerzy Ramírez MD [address] [phone] BIOSTATISTICS DIRECTOR Oncology 09/03/22 documented as of this encounter
== END 2025-08-02 12:16 | disposition home or self-care (01) ==
PROVIDERS: PCP Nurse Practitioner Family; Visit Provider Nurse Practitioner Family
DX: M54.9 Dorsalgia, unspecified (principal); G89.29 Other chronic pain; M51.369 Other intervertebral disc degeneration, lumbar region without mention of lumbar back pain or lower extremity pain; N20.0 Calculus of kidney
CPT/HCPCS: 72100

== ENCOUNTER 2025-09-04 12:29 | Outpatient (CLI) | payer MEDICARE, MEDICAID, SELFPAY ==
--- NOTE | ~2025-09-04 | CT_ITS ---
EXAMINATION: CT abd pelvis lumbar w con DATE: 09/04/2025 13:33 INDICATION: Abnormal findings on diagnostic imaging. Spinal stenosis. TECHNIQUE: Computed tomography (CT) of the abdomen, pelvis, and lumbar spine was performed with 100 mL Omnipaque 350 intravenous contrast. Automated exposure control and iterative reconstruction technique were employed. The dose-length product was 716.18 mGy-cm. COMPARISON: CT abdomen and pelvis 10/07/2017, lumbar spine radiographs 08/02/2025. FINDINGS: CT ABDOMEN AND PELVIS: The visualized portions of the lung bases demonstrate mild atelectasis. No pleural effusion. There is ectasia of the aortic root measuring 4.3 cm. There are calcifications of the aortic valve. The heart size is normal. There are coronary artery calcifications. No pericardial effusion. There are changes of gastric sleeve procedure. There is a small sliding hiatal hernia. The liver, spleen, pancreas, and adrenal glands are normal. There is cortical thinning of the kidneys. There is a 3 mm stone in right kidney. There are cysts in left kidney measuring up to 10 mm. There are 4 stones in left kidney measuring up to 1.6 cm. There is diverticulosis of the colon without evidence of diverticulitis. There are no dilated loops of bowel. The appendix measures 10 mm in diameter. There is a 3.6 cm cyst in the right ovary. There are no pathologically enlarged lymph nodes. There is no free intraperitoneal fluid. There is an electrode in the left S3 neural foramen. CT LUMBAR SPINE: There is 3 mm retrolisthesis of L2 on L3. There is mild chronic anterior wedging of T12 vertebral body. There is severely decreased disc height at L2-L3, mildly decreased disc height at L3-L4, moderately decreased disc height at L4-L5, and severely decreased disc height at L5-S1. The following disc levels are specifically discussed: L1-L2: The disc does not extend beyond the endplate margin. There is moderate right and mild left facet joint osteoarthritis. There is no neural foraminal stenosis. There is no central canal stenosis. L2-L3: The disc is bulging. There is moderate bilateral facet joint osteoarthritis. There is mild bilateral neural foraminal stenosis. There is mild central canal stenosis. L3-L4: The disc is bulging. There is severe bilateral facet joint osteoarthritis. There is mild bilateral neural foraminal stenosis. There is mild central canal stenosis. L4-L5: The disc is bulging. There is severe bilateral facet joint osteoarthritis. There is mild bilateral neural foraminal stenosis. There is mild central canal stenosis. L5-S1: The disc is bulging. There is moderate bilateral facet joint osteoarthritis. There is mild right and moderate left neural foraminal stenosis. There is mild central canal stenosis. IMPRESSION: 1. Appendiceal diameter of 10 mm, which is indeterminate for appendicitis. Correlate with physical exam. 2. Bilateral nonobstructing kidney stones. 3. Severe lumbar spondylosis. Reviewed, dictated and finalized at location E. [facility] [employer] IMPRESSION: 1. Appendiceal diameter of 10 mm, which is indeterminate for appendicitis. Cristóbal elate with physical exam. 2. Bilateral nonobstructing kidney stones. 3. Severe lumbar spondylosis.
[2025-09-04 13:28] LABS: Estimated Glomerular Filt Rate 49
--- OUTSIDE RECORDS SUMMARY | 2025-09-04 14:28 | XMS_ITS | Clinical Summary ---
Author Organization [facility] Address [facility] [place] [address] Care Team Providers Care Director Of Dietary Name Role Phone Betina Orourke MD Unavailable [phone] Jorge Shaver NP Primary Care Provider [phone] Allergies Active Allergy Reactions Criticality Noted Date Comments Mushroom Rash Medium 01/05/2019 [place] Urticaria Medium 02/21/2019 Medications amLODIPine (NORVASC) 5 mg tabletIndicatio ns:hypertension Take 1 tablet (5 mg total) by mouth rand butting machine operator before breakfast 2 Active atorvastatin (LIPITOR) 80 mg tabletIndicatio ns:hyperlipidem ia Take 1 tablet (80 mg total) by mouth nightly 2 Active biotin 10 mg tablet Take 1 tablet (10 mg total) by mouth rand butting machine operator before breakfast Active carvediloL (COREG) 12.5 mg tabletIndicatio ns:hypertension Take 1 tablet (12.5 mg total) by mouth 2 (two) times a day with meals 2 Active folic acid (FOLVITE) 1 mg tabletIndicatio ns:Folate Deficiency Take 1 tablet (1 mg total) by mouth rand butting machine operator before breakfast Active losartan (COZAAR) 100 mg tabletIndicatio ns:hypertension Take 1 tablet (100 mg total) by mouth rand butting machine operator before breakfast 2 Active PARoxetine (PAXIL) 40 mg tabletIndicatio ns:Anxiety with Depression Take 1 tablet (40 mg total) by mouth every morning 2 Active PARoxetine (PAXIL) 10 mg tabletIndicatio ns:Anxiety with Depression Take 1 tablet (10 mg total) by mouth every morning 2 Active vitamins A,C,E-zinc-katie er (PreserVision AREDS) 14,320-226-200 zezy-hv-kttn capsuleIndicati ons:Mineral Deficiency Prevention,Ana min Deficiency Prevention Take 2 capsules by mouth rand butting machine operator before breakfast Active hugh/D3/mag11/zi nc/senior copywriter/noel/bor (CALTRATE 600-D PLUS MINERALS ORAL) Take 1 tablet by mouth rand butting machine operator before breakfast Active traZODone (DESYREL) 50 mg tabletIndicatio ns:insomnia associated with depression Take 2 tablets (100 mg total) by mouth nightly 3 Active triamcinolone (KENALOG) 0.1 % cream Apply 1 g topically as needed for irritation or rash 3 Active vitamin E 200 unit capsuleIndicati ons:health Take 180 Units by mouth rand butting machine operator before breakfast Active ferrous sulfate 325 mg [...] history exists Medical Devices Implanted Type Area Field Auto Appraiser Device Identifier Shelf Expiration Date Model / Serial / Lot Medtronic Inc Interstim 28cm Quadripolar Mri Welding Machine Setter Neurostimulator [id number] - [id number] - [id number] Implanted:Qty: 1 on 04/14/2023 by Haile Briceño MD at [facility] Neurostimulator N/A: Back Medtronic Inc 06/09/2024 [id number] / [id number] / [id number] Medtronic Inc Interstim 100cm Percutaneous Electrode Insulated Kit [id number] - [id number] - [id number] Implanted:Qty: 1 on 04/14/2023 by Haile Briceño MD at [facility] Neurostimulator N/A: Back Medtronic Inc 01/08/2025 [id number] / [id number] / [id number] Medtronic Inc Generator Neurostimulator Bowel Bladder Recharge Free Interstim X [id number] - [id number] - [id number] Implanted:Qty: 1 on 04/28/2023 by Haile Briceño MD at [facility] Other - see comments N/A: Back Medtronic Inc 07/03/2024 [id number] / [id number] [id number] / Description:Implant pause pe rformed Right Knee Replacement Right: Knee Dustin Right Femur Right: Femur Insurance MEDICARE [facility] MEDICARE IDPA Advance Directives For more information, please contact: [phone] * Full Code (Latest Code Status on File) Date Activated Date Inactivated Comments 04/28/2023 4:04 PM 04/29/2023 2:49 PM Care Teams Director Of Dietary Relationship Specialty Start Date End Date Jorge Shaver NP [address] [place] [address] PCP - General Nurse Practitioner 04/01/23 Betina Orourke MD [phone] [place] [address] Surgeon Colon and Rectal Surgery 07/09/22
--- OUTSIDE RECORDS SUMMARY | 2025-09-04 14:29 | XMS_ITS | Encounter Summary ---
Author Organization [facility] Address [address] [place] [address] Care Team Providers Care Carrier Loader Name Role Phone Sultana Smith RN Unavailable Unavailable Keshawn Stone DO Primary Care Provider [phone] Jerzy Ramírez MD Unavailable [phone] Encounter Details Date Type Department Care Team (Late st Contact Info) Description 07/14/2019 Lab Requisition [facility] [address] [place] [address] Shanti Viera MD [address] [place] [address] Social History Tobacco Use Types Packs/Day Years Used Date Smoking Tobacco: Former Cigarettes 0 Q uit: 09/20/2007 Smokeless Tobacco: Never Alcohol Use Standard Drinks/Week Comments No 0 (1 standard drink = 0.6 oz pur e alcohol) Comments No Sex and Gender Information Value Date Recorded Sex Assigned at Female 05/13/2021 9:11 AM CDT Legal Sex Female 7:45 PM ANODIZER Gender Identity Female 05/13/2021 9:11 AM CDT [...] of Slides 1 07/17/2019 4:46 PM CDT [facility] PATH[facility] LAB Number of Control Slides 1 07/17/2019 4:46 PM CDT [facility] Pathology/Cytolo gy ENTIRE UTERUS / Unknown 07/06/2019 11:20 AM CDT 07/14/2019 10:26 AM CDT us Shanti Viera MD LAB - PATHOLOGY/CYTOLOGY ORD ERABLES Final Result [facility] [address] [place] [address], [facility] [phone] documented in this encounter Visit Diagnoses Not on filedocumented in this encounter Care Teams Carrier Loader Relationship Specialty Start Date End Date Keshawn Stone DO [address] [place] [address] PCP - General Internal Medicine 02/21/19 Sultana Smith, RN Registered Nurse 11/29/17 Jerzy Ramírez MD [address] [phone] COMPETENCY EVALUATED NURSE AIDE Oncology 09/03/22 documented as of this encounter
--- OUTSIDE RECORDS SUMMARY | 2025-09-04 14:29 | XMS_ITS | Clinical Summary ---
Author Organization [facility] Address [address] [facility] [place] [address] Care Team Providers Care Tip Tester Name Role Phone Sultana Smith RN Unavailable Unavailable Keshawn Stone DO Primary Care Provider [phone] Jerzy Ramírez MD Unavailable [phone] Source Comments [facility],non-owned Affiliates and Associated Physician Practices is amultiple site organization consisting of ambulatory clinics and hospital sitesin [place], [place], [place] and [place]. This disclosure is being madepursuant to the Care Everywhere program and may not contain all information available regarding this patient. Last updated 18.[facility] Allergies Active Allergy Reactions Criticality Noted Date Comments Mushroom Extract Complex Rash Medium 01/05/2019 [place] Urticaria Medium 02/21/2019 Medications * Be aware [...] ls (ICAPS AREDS 2 PO) Active Biotin 31164 MCG TABS Take 1 (one) tablet by [...] AM CDT Legal Sex Female 7:45 PM RIGGER Gender Identity Female 05/13/2021 9:11 AM CDT Sexual Orientation Straight 05/13/2021 9: 11 AM CDT Last Filed Vital Signs Vital Sign Reading Time Taken Comments Blood Pressure 106/82 10/07/2022 1:58 PM RIGGER Pulse 83 05/20/2021 1:15 PM CDT Temperature 36.7 C (98 F) 05/20/2021 1:15 PM CDT Respiratory Rate 18 08/11/2019 12:1 8 PM RIGGER Oxygen Saturation 93% 08/11/2019 12: 18 PM RIGGER Inhaled Oxygen Concentration - - Weight 103.2 kg (227 lb 9.6 oz) 10/07/2022 1:58 PM RIGGER Height 167.6 cm (5' 6) 10/07/2022 1:58 PM RIGGER Body Mass Index 36.74 10/07/2022 1:58 PM RIGGER Plan of Treatment Health Maintenance Due Date [...] approximately 13% higher for people identified as -Romanian. eGFR by MDRD 85 > OR = [...] 29 U/L [facility] Comment: Test Performed at: [facility] [id number] [id number] MARY VASQUEZ DO,MPH 04/12/2020 11:1 5 AM CDT 04/12/2020 11:16 AM CDT Phyllis Irving DRUM MAKER-MUSEUM EXHIBIT TECHNICIAN LAB - CHEMISTRY ORDE JONATHAN Final Result [facility] [id number] [place] [address] from Last 3 Months or Most Recently Relevant to Health Maintenance Insurance MEDICAID - [place] MEDICARE Advance Directives * Full Code (Latest Code Status on File) Date Activated Date Inactivated Comments 03/27/2019 8:28 PM 03/28/2019 7:43 PM Care Teams Tip Tester Relationship Specialty Start Date End Date Keshawn Stone DO [address] [place] [address] PCP - General Internal Medicine 02/21/19 Sultana Smith RN Registered Nurse 11/29/17 Jerzy Ramírez MD [address] [phone] BRAILLE TRANSCRIBER Oncology 09/03/22
--- OUTSIDE RECORDS SUMMARY | 2025-09-04 14:29 | XMS_ITS | Encounter Summary ---
Author Organization [facility] Address [address] [place] [address] Care Team Providers Care Supervisor Riveting Name Role Phone Sultana Smith RN Unavailable Unavailable Keshawn Stone DO Primary Care Provider [phone] Jerzy Ramírez MD Unavailable [phone] Reason for Visit * Reason Onset Date Comments Reschedule Appointment 08/03/2022 Encounter Details Date Type Department Care Team (Late st Contact Info) Description 08/03/2022 Telephone [facility] [address] [place] [address] Jerzy Ramírez MD [address] [facility] [address] [place] [phone] Reschedule Appointment Social History Tobacco Use Types [...] AM CDT Legal Sex Female 7:45 PM TEA TASTER Gender Identity Female 05/13/2021 9:11 AM CDT [...] - Karolyn Cruz - 08/06/2022 3:54 PM TEA TASTER Called patient to reschedule missed appointment on 08/05/2022, but patient reported that appointment was already rescheduled for September. TASTER * Telephone Encounter - Cassandra Rosario - 08/03/2022 9:06 AM CST Pt wants to reschedule 08/[address] Ramírez. TASTER documented in this encounter Plan of Treatment Not on file documented as of this encounter Visit Diagnoses Not on filedocumented in this encounter Care Teams Supervisor Riveting Relationship Specialty Start Date End Date Keshawn Stone DO [address] [address] PCP - General Internal Medicine 02/21/19 Sultana Smith, RN Registered Nurse 11/29/17 Jerzy Ramírez MD [address] [phone] PRIVACY SPECIALIST Oncology 09/03/22 documented as of this encounter
--- OUTSIDE RECORDS SUMMARY | 2025-09-04 14:29 | XMS_ITS | Clinical Summary ---
Author Organization [facility] Address [address], [place] [address] Phone Care Team Providers Care Demand Manager Name Role Phone Rodríguez Carrasquillo DO Unavailable [phone] Twila Cardona APRN Primary Care Provider [phone] Allergies No known active allergies Medications Cholecalciferol [...] Comments Blood Pressure 130/82 09/06/2017 1:10 PM SECONDARY SCHOOL REGISTRAR Pulse 83 09/06/2017 1:10 PM SECONDARY SCHOOL REGISTRAR Temperature 36.6 C (97.8 F) 09/06/2017 1:10 PM SECONDARY SCHOOL REGISTRAR Respiratory Rate 16 09/06/2017 1:10 PM SECONDARY SCHOOL REGISTRAR Oxygen Saturation 95% 09/06/2017 1:10 PM SECONDARY SCHOOL REGISTRAR Inhaled Oxygen Concentration - - Weight 122.5 kg (270 lb) 09/06/2017 1:10 PM SECONDARY SCHOOL REGISTRAR Height 167.6 cm (5' 6) 09/06/2017 1:10 PM SECONDARY SCHOOL REGISTRAR Body Mass Index 43.58 09/06/2017 1:10 PM SECONDARY SCHOOL REGISTRAR Plan of Treatment Health Maintenance Due Date [...] Maintenance Insurance MEDICARE [place]ICAID [place] Care Teams Demand Manager Relationship Specialty Start Date End Date Twila Cardona APRN PCP - General Family Medicine 11/21/20 Rodríguez Carrasquillo DO Gastroenterology 10/17/15
== END 2025-09-04 12:30 | disposition home or self-care (01) ==
PROVIDERS: PCP Nurse Practitioner Family; Visit Provider Nurse Practitioner Family
DX: R93.89 Abnormal findings on diagnostic imaging of other specified body structures (principal); M48.062 Spinal stenosis, lumbar region with neurogenic claudication; R39.9 Unspecified symptoms and signs involving the genitourinary system; N20.0 Calculus of kidney; M47.26 Other spondylosis with radiculopathy, lumbar region
CPT/HCPCS: 72132; 74177; Q9967